=== PATIENT | female | born 1960 | race African-American/Black ===

== ENCOUNTER 2017-05-01 10:37 | Emergency (ER) | payer SELFPAY ==
[~2017-05-01] VITALS: Ht 172.7 cm; Wt 93.0 kg
[2017-05-01 10:52] VITALS: BP 142/83
[2017-05-01] MEDS ORDERED: Albuterol ud Inhalation HHN ONE (11:00)
--- NOTE | 2017-05-01 11:42 | Diagnostic Imaging Report ---
Indication: TRAUMA Technique: 3 views of the left shoulder Comparison: none Findings: No acute fractures. No dislocations. Joint spaces are preserved Impression:No acute process
[2017-05-01 12:19] VITALS: BP 137/80
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
[2017-05-01] MEDS ORDERED: NAPROXEN375 MG ORAL (12:27)
[2017-05-01] MEDS ORDERED: saline NEBULIZ062 (12:28)
[2017-05-01] MEDS ORDERED: TRAMADOL HCL50 MG ORAL (12:28)
[2017-05-01 12:36] VITALS: BP 137/80
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
== END 2017-05-01 12:37 | disposition home or self-care (01) ==
LOC: EMR 11:57
DX: S13.4XXA Sprain of ligaments of cervical spine, initial encounter (principal); S40.012A Contusion of left shoulder, initial encounter; V49.40XA Driver injured in collision with unspecified motor vehicles in traffic accident, initial encounter; Y92.410 Unspecified street and highway as the place of occurrence of the external cause; J45.909 Unspecified asthma, uncomplicated; Z85.42 Personal history of malignant neoplasm of other parts of uterus; Z88.0 Allergy status to penicillin
CPT/HCPCS: 72040; 94640; 94664; 99284

== ENCOUNTER 2017-05-10 14:30 | Emergency (ER) | payer MEDICAID ==
[2017-05-10] VITALS (8 sets, daily range): BP systolic 104–142; BP diastolic 50–69
[~2017-05-10] VITALS: Ht 172.7 cm; Wt 93.4 kg
[~2017-05-10 14:30] MED LIST: NAPROXEN375 MG ORAL; TRAMADOL HCL50 MG ORAL; saline NEBULIZ062
[2017-05-10 15:25] LABS: MEAN CORPUSCULAR VOLUME 61 FL (80-99); MEAN PLATELET VOLUME 7.8 FL (6.5-10.1); PLATELET COUNT 297 K/UL (150-450); RED BLOOD COUNT 3.54 M/UL (4.20-5.40); RED CELL DISTRIBUTION WIDTH 18.1 % (11.6-14.8); WHITE BLOOD COUNT 16.2 K/UL (4.8-10.8)
[2017-05-10 15:38] LABS: ALANINE AMINOTRANSFERASE 7 U/L (3-33); ALBUMIN/GLOBULIN RATIO 0.9 (1.0-2.7); ANION GAP 13 (5-15); ASPARTATE AMINO TRANSFERASE 17 U/L (5-40); CARBON DIOXIDE 25 mEQ/L (20-30); CHLORIDE 100 mEQ/L (98-107); GLOMERULAR FILTRATION RATE > 60 mL/min (>60); HEMOLYSIS 11; LIPASE 21 U/L (< 60); POTASSIUM 4.2 mEQ/L (3.4-4.9); SODIUM 138 mEQ/L (135-145); TOTAL PROTEIN 7.1 g/dL (6.6-8.7)
[2017-05-10 16:22] LABS: ANISOCYTOSIS 3+; BASOPHILS % (MANUAL) 1 % (0-2); EOSINOPHILS % (MANUAL) 1 % (0-3); LYMPHOCYTES % (MANUAL) 26 % (20-45); NEUTROPHILS % (MANUAL) 70 % (45-75); TOTAL CELLS COUNTED 100
[2017-05-10 16:23] LABS: BAND NEUTROPHILS % (MANUAL) 0 % (0-8); HYPOCHROMASIA 3+; MICROCYTES 1+; PLATELET ESTIMATE ADEQUATE; PLATELET MORPHOLOGY NORMAL
--- NOTE | 2017-05-10 17:15 | Emergency Room Report ---
History of Present Illness General Chief Complaint: Vaginal Source: Patient, EMS Present Illness HPI patient is a 57-year-old female who presents with vaginal bleeding. Patient states started yesterday. Patient has a history of vaginal bleeding approximately one year ago associated with uterine fibroids and, per the patient a diagnosis of uterine cancer. Patient states she has used multiple pads overnight and is now feeling somewhat weak. Patient states a year ago she was being treated by Dr. 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 The patient said she was offered a hysterectomy however preferred a different treatment was not available. Therefore the patient states she has received no treatment for her uterine cancer in the last 12 months. Allergies: Coded Allergies: AMOXICILLIN (Verified Allergy, Unknown, 05/01/17) LEVOFLOXACIN (Verified Allergy, Unknown, 05/01/17) Patient History Past Medical History: see triage record Past Surgical History: none Pertinent Family History: none Social History: Denies: alcohol use, drug use, smoking Now: No Nursing Documentation-PMH Past Medical History: No History, Except For Hx Asthma: Yes Hx Cancer: Yes - History of Uterine cancer Hx Gastrointestinal Problems: Yes - UTERINE CANCER Review of Systems Constitutional: Denies: chills, fever, sweats ENT: Denies: ear discharge, ear pain Respiratory: Denies: cough, shortness of breath Cardiovascular: Denies: chest pain, palpitations Gastrointestinal: Reports: abdominal pain, Denies: constipation, diarrhea, nausea, vomiting Genitourinary: Reports: see HPI Musculoskeletal: Denies: back pain, joint pain Skin: Denies: change in color, rash Neurological: Denies: headache, numbness, paresthesia Hematologic/Lymphatic: Reports: anemia, Denies: blood clots Allergic: Denies: hay fever, urticaria Physical Exam Vital Signs Date Time Temp Pulse Resp B/P Pulse Ox O2 Delivery O2 Flow Rate FiO2 05/10/17 14:22 97.0 98 18 104/50 99 Room Air Sp02 EP Interpretation: reviewed, normal General Appearance: no apparent distress, alert, GCS 15, non-toxic Head: normocephalic, atraumatic ENT: hearing grossly normal, normal pharynx, no angioedema, normal voice Neck: full range of motion, supple/symm/no masses Respiratory: chest non-tender, lungs clear, normal breath sounds, speaking full sentences Cardiovascular #1: regular rate, rhythm, no edema Gastrointestinal: normal bowel sounds, non tender, soft, non-distended, no guarding, no rebound Genitourinary: normal inspection, no CVA tenderness, ext genitalia/vag normal, os closed, other - old blood in the vaginal vault, question of a mass in the vagina Musculoskeletal: normal inspection, back normal Neurologic: alert, oriented x3, responsive, motor strength/tone normal, sensory intact, speech normal Psychiatric: judgement/insight normal, memory normal, mood/affect normal, no suicidal/homicidal ideation Skin: normal color, no rash, warm/dry, well hydrated Medical Decision Making Diagnostic Impression: Primary Impression: Vaginal bleeding Additional Impression: Uterine mass ER Course I attempted to contact Dr. Angel [facility]. Number listed on the Internet, as the patient did not know the number, is not working and the patient states she does not want Dr. Angel notified. I did explain that this would make the patient's care he is here however the patient still refusing. At this point the patient is in CAT scan receiving a CT of the abdomen and pelvis to evaluate for potential mass versus metastasis and to establish a clear etiology of the patient's symptoms. Anticipate admitting the patient for transfusion as her hemoglobin is extremely low. However, prior to that I would like to get a more definitive diagnosis. CT shows large uterine mass consistent with cancer and fibroids. Also shows large pericardial effusion. Have informed the patient of this diagnosis. 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 I agree with this assessment. The patient refuses to return to [facility] where she was previously treated. I am therefore calling [facility] patient is now refusing transfer. I have explained to her the risk of down or worsening of her condition and the fact that I will most likely not able to stop the bleeding. However, the patient is adamant about transfer refusal. She is willing to accept transfusion here in the emergency department which as been ordered and will be completed prior to the patient signing out AGAINST MEDICAL ADVICE Laboratory Tests Test 05/10/17 15:05 White Blood Count 16.2 K/UL (4.8-10.8) H Red Blood Count 3.54 M/UL (4.20-5.40) L Hemoglobin 6.7 G/DL (12.0-16.0) *L Hematocrit 21.7 % (37.0-47.0) L Mean Corpuscular Volume 61 FL (80-99) L Mean Corpuscular Hemoglobin 19.0 PG (27.0-31.0) L Mean Corpuscular Hemoglobin Concent 31.0 G/DL (32.0-36.0) L Red Cell Distribution Width 18.1 % (11.6-14.8) H Platelet Count 297 K/UL (150-450) Mean Platelet Volume 7.8 FL (6.5-10.1) Neutrophils (%) (Auto) % (45.0-75.0) Lymphocytes (%) (Auto) % (20.0-45.0) Monocytes (%) (Auto) % (1.0-10.0) Eosinophils (%) (Auto) % (0.0-3.0) Basophils (%) (Auto) % (0.0-2.0) Differential Total Cells Counted 100 Neutrophils % (Manual) 70 % (45-75) Lymphocytes % (Manual) 26 % (20-45) Monocytes % (Manual) 2 % (1-10) Eosinophils % (Manual) 1 % (0-3) Basophils % (Manual) 1 % (0-2) Band Neutrophils 0 % (0-8) Platelet Estimate Adequate Platelet Morphology Normal Hypochromasia 3+ Anisocytosis 3+ Microcytosis 1+ Sodium Level 138 mEQ/L (135-145) Potassium Level 4.2 mEQ/L (3.4-4.9) Chloride Level 100 mEQ/L (98-107) Carbon Dioxide Level 25 mEQ/L (20-30) Anion Gap 13 (5-15) Blood Urea Nitrogen 9 mg/dL (7-23) Creatinine 1.0 mg/dL (0.5-0.9) H Estimate Glomerular Filtration Rate > 60 mL/min (>60) Glucose Level 122 mg/dL (74-106) H Calcium Level 9.0 mg/dL (8.6-10.2) Total Bilirubin 0.4 mg/dL (0.0-1.2) Aspartate Amino Transferase (AST) 17 U/L (5-40) Alanine Aminotransferase (ALT) 7 U/L (3-33) Alkaline Phosphatase 58 U/L (35-104) Total Protein 7.1 g/dL (6.6-8.7) Albumin 3.4 g/dL (3.5-5.2) L Globulin 3.7 g/dL Albumin/Globulin Ratio 0.9 (1.0-2.7) L Lipase 21 U/L (< 60) CT/MRI/US Diagnostic Results CT/MRI/US Diagnostic Results : Impression CT abdomen and pelvis with contrast shows a markedly enlarged intrauterine mass compatible with history of uterine cancer with apparent vaginal extension measuring approximately 9 x 10.5 x 25 cm. Additionally uterine masses suggestive of fibroids. Large pericardial effusion. Normal appendix, fat- containing umbilical hernia. Last Vital Signs Date Time Temp Pulse Resp B/P Pulse Ox O2 Delivery O2 Flow Rate FiO2 05/10/17 15:00 18 104/50 99 Room Air 05/10/17 14:22 97.0 98 Status: improved Disposition: AGAINST MEDICAL ADVICE Condition: Serious ANDREI WARNER May 10, 2017 17:15
[2017-05-10] MEDS ORDERED: Morphine Sulfate 4mg/ml Inj IVP ONE (20:15)
[2017-05-11] MEDS ORDERED: ANTI-ITCH28 G1 TP (01:22)
[2017-05-11 01:35] VITALS: BP 155/55
[2017-05-11] MEDS ORDERED: DuoNeb 0.5-3(2.5)mg/3ml neb HHN ONE (02:15)
[2017-05-11 02:28] LABS: BASOPHILS % (AUTO) 0.9 % (0.0-2.0); EOSINOPHILS % (AUTO) 0.9 % (0.0-3.0); LYMPHOCYTES % (AUTO) 19.4 % (20.0-45.0); MEAN CORPUSCULAR HEMOGLOBIN 20.6 PG (27.0-31.0); MEAN CORPUSCULAR HGB CONC 30.1 G/DL (32.0-36.0); MEAN CORPUSCULAR VOLUME 68 FL (80-99); MEAN PLATELET VOLUME 8.2 FL (6.5-10.1); MONOCYTES % (AUTO) 6.4 % (1.0-10.0); NEUTROPHILS % (AUTO) 72.4 % (45.0-75.0); PLATELET COUNT 285 K/UL (150-450); RED BLOOD COUNT 4.03 M/UL (4.20-5.40); WHITE BLOOD COUNT 13.9 K/UL (4.8-10.8)
[2017-05-11 03:00] VITALS: BP 129/62
[2017-05-11 04:00] VITALS: BP 116/74
--- NOTE | 2017-05-11 10:30 | Diagnostic Imaging Report ---
Clinical Indication: Abdominal pain. History of uterine carcinoma Technique: No oral contrast utilized, per emergency room physician request IV administration nonionic contrast. Venous phase spiral acquisition obtained through the abdomen and pelvis. Multiplanar reconstructions were generated. Total dose length product 827 mGycm. CTDIvol(s) 16 mGy. Dose reduction achieved using automated exposure control Comparison: None Findings: There is a large pericardial effusion, measuring up to 2 cm thick. There is a very large central uterine mass which is mixed in attenuation, mostly hypoattenuating to myometrium. This measures 9.5 cm AP by 10.6 cm transverse by approximately 17 cm craniocaudad. A contiguous lower uterine/cervical mass is also demonstrated. This mostly demonstrates similar attenuation to the central uterine mass but also have some higher attenuation components, and very little surrounding myometrium. This measures approximately 14 cm AP by 10.4 cm transverse by 14 cm craniocaudad. There is also a calcified uterine fibroid which appears to be intramural in the posterior lateral I'm interim on the right, measuring 4.2 cm long axis dimension. There is a subserosal exophytic uterine fibroid in the upper left fundus, measuring 9 cm long axis dimension. There is a 3 cm right ovarian cyst. No definite pelvic or retroperitoneal lymphadenopathy demonstrated. The gallbladder is nondistended. No biliary ductal dilatation. The liver demonstrates one or more subcentimeter low-attenuation lesions which are too small to characterize. The pancreas, spleen, adrenals, left kidney are unremarkable. The right kidney demonstrates an upper pole subcentimeter low-attenuation lesion which is too small to characterize. There is a fat-containing umbilical hernia. The appendix is normal. No evidence of diverticulosis or diverticulitis. No small bowel distention or small bowel wall thickening. No free or loculated intraperitoneal air or fluid is evident. The bones are intact except for mild degenerative lumbar facet disease. Impression: 2 contiguous large uterine masses versus single large bilobed mass, as described, consistent with stated clinical history of uterine malignancy Uterine fibroids also demonstrated 3 cm right ovarian cyst No definite acute process Fat-containing umbilical hernia incidentally noted Subcentimeter low-attenuation liver and right renal lesions, too small to characterize, most likely benign simple cysts. No further followup is necessary. This agrees with the preliminary interpretation provided overnight by Dr. Dolan The CT scanner at [facility] is accredited by the [employer] and the scans are performed using protocols designed to limit radiation exposure to as low as reasonably achievable to attain images of sufficient resolution adequate for diagnostic evaluation.
== END 2017-05-11 04:00 | disposition left against medical advice (07) ==
LOC: EDBD 14:30 → EMR 17:40
DX: N93.9 Abnormal uterine and vaginal bleeding, unspecified (principal); D25.9 Leiomyoma of uterus, unspecified; N83.201 Unspecified ovarian cyst, right side; K42.9 Umbilical hernia without obstruction or gangrene; Z85.42 Personal history of malignant neoplasm of other parts of uterus; Z88.8 Allergy status to other drugs, medicaments and biological substances
CPT/HCPCS: 36415; 74177; 80053; 83690; 85007; 85025; 86850; 86900; 86901; 86920; 94640; 94664; 96360; 96361; 99284; J7040; P9016; Q9967

== ENCOUNTER 2019-03-08 17:03 | Inpatient (IN) | payer MEDICAID ==
[~2019-03-08] VITALS: Ht 172.7 cm; Wt 87.1 kg
[~2019-03-08 17:03] MED LIST changes: +ANTI-ITCH28 G1 TP
--- NOTE | 2019-03-08 17:41 | NUR ---
ED Nurse Note: pt walked in c/o chills and sweating, pt denies having fever. temp 97.7F, pt stated she vomited few time last thursday and was having abdominal pain. pt has hx of uterine cancer. pt appears pale, bs 105. ermd on bedside. will continue to monitor.
[2019-03-08 17:43] VITALS: BP 95/62
--- NOTE | 2019-03-08 18:04 | Emergency Room Report ---
History of Present Illness General Chief Complaint: Abdominal Pain Source: Patient Present Illness HPI Patient is a 58-year-old female presented after increased lower abdominal pain. Patient reports of increased vomiting as well as watery diarrhea since 2 days prior to arrival. Patient reports having nonbilious emesis. She stated she vomited food and was having watery diarrhea which began after eating Amharic food. 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 Patient's prior CT imaging showed some reduction in size of the tumor.Patient reports having hysterectomy at [facility].She denies any hematemesis or bloody stools. She reports having her hemoglobin checked regularly and states her last hemoglobin was approximately 9. She reports having loose stool. She states she had been taking methadone as well as [place] for pain. Allergies: Coded Allergies: LEVOFLOXACIN (Verified Allergy, Unknown, 05/01/17) Patient History Past Medical History: see triage record Now: No Reviewed Nursing Documentation: PMH: Agreed; PSxH: Agreed Nursing Documentation-PMH Past Medical History: No History, Except For Hx Asthma: Yes Hx Cancer: Yes - History of Uterine cancer Hx Gastrointestinal Problems: Yes - UTERINE CANCER Review of Systems All Other Systems: negative except mentioned in HPI Physical Exam Vital Signs Date Time Temp Pulse Resp B/P (MAP) Pulse Ox O2 Delivery O2 Flow Rate FiO2 03/08/19 17:11 97.9 125 15 95 Room Air 03/08/19 17:43 95/62 Sp02 EP Interpretation: reviewed, normal General Appearance: normal inspection, well appearing, no apparent distress, alert, GCS 15, Chronically Ill Head: atraumatic Eyes: bilateral eye conjunctivae pale ENT: normal ENT inspection, hearing grossly normal, normal voice Neck: normal inspection, full range of motion, supple, no bony tend, other - portacath Respiratory: normal inspection, lungs clear, normal breath sounds, no respiratory distress, no retraction, no wheezing Cardiovascular #1: regular rate, rhythm, no edema Gastrointestinal: normal inspection, normal bowel sounds, soft, no guarding, no hernia, tenderness - lower abdomen Genitourinary: no CVA tenderness Musculoskeletal: normal inspection, back normal, normal range of motion Neurologic: normal inspection, alert, oriented x3, responsive, speech normal Psychiatric: normal inspection, judgement/insight normal, mood/affect normal Skin: normal inspection, no rash, pallor Medical Decision Making Diagnostic Impression: Primary Impression: Sepsis Additional Impressions: History of sarcoma Urinary tract infection Opioid dependence ER Course Patient patient presented for abdominal pain. Differential diagnoses included anemia , ischemic bowel, appendicitis, perforated viscus, abdominal aortic aneurysm, inferior myocardial infarction, viral gastroenteritis among others. Because of complexity of patient's case laboratory testing and imaging studies were ordered.Patient was noted to have some anemia at baseline. She reports taking iron pills and is followed by hematology.Patient was noted to have some anemia which is worse than her baseline. Patient was started on IV fluids as well as IV antibiotics. Patient was noted to have a history of prior hysterectomy as well as sarcoma. Patient's recent CT showed evidence of lymph nodes as well as a pelvic mass. Patient had previous embolization procedures done at [facility] CT imaging of abdomen pelvis read by radiology showed bladder compressed and displaced anteriorly; no hydronephrosis multiple clips from pelvic dissection hepatomegaly no ascites abscess or small bowel obstruction. Patient was discussed with Dr. Coronado for inpatient management due to panel physician. Patient reports no recent chemotherapy but is currently scheduled to see a surgical oncologist.Patient was noted to be chronically opioid dependent and previously had been taking methadone as well as [place]. She was given IV morphine for pain. Labs Test 03/08/19 18:20 03/08/19 19:00 White Blood Count 20.5 K/UL (4.8-10.8) Red Blood Count 2.91 M/UL (4.20-5.40) Hemoglobin 7.5 G/DL (12.0-16.0) Hematocrit 22.8 % (37.0-47.0) Mean Corpuscular Volume 78 FL (80-99) Mean Corpuscular Hemoglobin 25.8 PG (27.0-31.0) Mean Corpuscular Hemoglobin Concent 33.0 G/DL (32.0-36.0) Red Cell Distribution Width 16.1 % (11.6-14.8) Platelet Count 297 K/UL (150-450) Mean Platelet Volume 5.1 FL (6.5-10.1) Neutrophils (%) (Auto) % (45.0-75.0) Lymphocytes (%) (Auto) % (20.0-45.0) Monocytes (%) (Auto) % (1.0-10.0) Eosinophils (%) (Auto) % (0.0-3.0) Basophils (%) (Auto) % (0.0-2.0) Differential Total Cells Counted 100 Neutrophils % (Manual) 76 % (45-75) Lymphocytes % (Manual) 4 % (20-45) Monocytes % (Manual) 2 % (1-10) Eosinophils % (Manual) 0 % (0-3) Basophils % (Manual) 2 % (0-2) Band Neutrophils 16 % (0-8) Platelet Estimate Adequate Platelet Morphology Normal Polychromasia 1+ Hypochromasia 1+ Anisocytosis 1+ Microcytosis 1+ Urine Color Brown Urine Appearance Turbid Urine pH 8 (4.5-8.0) Urine Specific [place] 1.010 (1.005-1.035) Urine Protein 4+ (NEGATIVE) Urine Glucose (UA) Negative (NEGATIVE) Urine Ketones 1+ (NEGATIVE) Urine Blood 5+ (NEGATIVE) Urine Nitrite Negative (NEGATIVE) Urine Bilirubin Negative (NEGATIVE) Urine Urobilinogen Normal MG/DL (0.0-1.0) Urine Leukocyte Esterase 3+ (NEGATIVE) Urine RBC Tntc /HPF (0 - 2) Urine WBC Tntc /HPF (0 - 2) Urine Squamous Epithelial Cells Moderate /LPF (NONE/OCC) Urine Bacteria Many /HPF (NONE) Sodium Level 137 MMOL/L (136-145) Potassium Level 3.9 MMOL/L (3.5-5.1) Chloride Level 100 MMOL/L (98-107) Carbon Dioxide Level 28 MMOL/L (21-32) Anion Gap 9 mmol/L (5-15) Blood Urea Nitrogen 20 mg/dL (7-18) Creatinine 1.2 MG/DL (0.55-1.30) Estimat Glomerular Filtration Rate 55.6 mL/min (>60) Glucose Level 111 MG/DL (74-106) Calcium Level 7.9 MG/DL (8.5-10.1) Total Bilirubin 0.5 MG/DL (0.2-1.0) Aspartate Amino Transf (AST/SGOT) 26 U/L (15-37) Alanine Aminotransferase (ALT/SGPT) 19 U/L (12-78) Alkaline Phosphatase 147 U/L (46-116) Total Protein 7.4 G/DL (6.4-8.2) Albumin 2.3 G/DL (3.4-5.0) Globulin 5.1 g/dL Albumin/Globulin Ratio 0.5 (1.0-2.7) Lipase 55 U/L (73-393) Lactic Acid Level 0.70 mmol/L (0.4-2.0) Last Vital Signs Date Time Temp Pulse Resp B/P (MAP) Pulse Ox O2 Delivery O2 Flow Rate FiO2 03/08/19 17:43 97.9 105 15 95/62 95 Room Air Status: unchanged Disposition: ADMITTED INPATIENT Condition: Stable Deni Cruz MD March 08, 2019 18:04
[2019-03-08 18:48] LABS: APPEARANCE,URINE TURBID; BILIRUBIN, URINE NEGATIVE (NEGATIVE); COLOR,URINE BROWN; GLUCOSE, URINE (UA) NEGATIVE (NEGATIVE); HEMATOCRIT 22.8 % (37.0-47.0); HEMOGLOBIN 7.5 G/DL (12.0-16.0); KETONES,URINE 1+ (NEGATIVE); LEUKOCYTE ESTERASE ,URINE 3+ (NEGATIVE); MEAN CORPUSCULAR VOLUME 78 FL (80-99); NITRITE,URINE NEGATIVE (NEGATIVE); PH,URINE 8 (4.5-8.0); PLATELET COUNT 297 K/UL (150-450); PROTEIN,URINE 4+ (NEGATIVE); RED BLOOD COUNT 2.91 M/UL (4.20-5.40); RED CELL DISTRIBUTION WIDTH 16.1 % (11.6-14.8); UROBILINOGEN,URINE NORMAL MG/DL (0.0-1.0); WHITE BLOOD COUNT 20.5 K/UL (4.8-10.8)
[2019-03-08 19:00] LABS: ANION GAP 9 mmol/L (5-15); BLOOD UREA NITROGEN 20 mg/dL (7-18); CALCIUM 7.9 MG/DL (8.5-10.1); CARBON DIOXIDE 28 MMOL/L (21-32); CHLORIDE 100 MMOL/L (98-107); CREATININE 1.2 MG/DL (0.55-1.30); POTASSIUM 3.9 MMOL/L (3.5-5.1); SODIUM 137 MMOL/L (136-145)
[2019-03-08] MEDS ORDERED: cefTRIAXone 1 GM in NS 55 ML IVPB ONE (19:00)
[2019-03-08] MEDS ORDERED: Isovue-300 100ml vial INJ PRN (19:00)
[2019-03-08 19:05] LABS: ALANINE AMINOTRANSFERASE 19 U/L (12-78); ALBUMIN 2.3 G/DL (3.4-5.0); ALBUMIN/GLOBULIN RATIO 0.5 (1.0-2.7); ALKALINE PHOSPHATASE 147 U/L (46-116); ASPARTATE AMINO TRANSFERASE 26 U/L (15-37); BILIRUBIN,TOTAL 0.5 MG/DL (0.2-1.0)
--- NOTE | 2019-03-08 19:12 | NUR ---
HAND-OFF: Report given to Doris linton.
--- NOTE | 2019-03-08 19:25 | NUR ---
ED Nurse Note: RECIEVED REPORT TO RESUME CARE, PT IS CURRENTLY BEING TAKEN TO IMAGING FOR ORDERED CT-SCAN, TP IS ON RNEY AWAKE, ALERT AND ORIENTED X 4, TP AHS PATENT PORTACATH TO RIGHT CHEST WALL WITH FLUIDS INFUSING, FAMILY MEMBER AT BEDSIDE, WILL RESUME CARE ORDERED AND PREPARE FOR HOSPITAL ADMISSION.
[2019-03-08 20:00] VITALS: BP 135/75
[2019-03-08] MEDS ORDERED: Morphine Sulfate 4mg/ml Inj (IV USE ONLY) IVP ONE (20:15)
--- NOTE | 2019-03-08 20:30 | NUR ---
ED Nurse Note: PT RETURNED FROM IMAGING, PT IS AWAKE, ALERT AND ORIENTED X 4, REPLACED ON MONITORING, HAS PATENT PORT A CATH AND ACCESSED, FLUIDS INFUSING, PT TOLERTING WELL, NO S/S OR ADVERSE REACTIONS NOTED FROM IV ANTIBIOTICS, PT C/O HVING PAIN AT 10/10 AND ASKING TO EAT, PT MEDICATED ORDERD, MEDS EFFCTIVE, GIVEN SANDWICH AND JUICE, ATE ALL AND TOLERATED WELL, WILL CONTINNUE TO CLOSELY MONITOR AND SEND TO FLOOR BED WHEN AVAILABLE.
[2019-03-08 21:15] VITALS: BP 126/79
--- NOTE | 2019-03-08 21:27 | NUR ---
NURSE NOTES: Report received via telephone from Doris WHALEN RN. Pending pt arrival to the floor.
--- NOTE | 2019-03-08 21:30 | NUR ---
ED Nurse Note: REPORT CALLED TO FLOOR NURSE, REPORT GIVEN, TP BELONGINGS LIST COMPLETED, FAMILY AT BEDSIDE, PT BEING TAKEN TO FLOOR UNIT VIA GURNEY AND ACLS PROTOCOLS, NAD NOTED DURING PT TRANSPORT TO FLOOR.
--- NOTE | 2019-03-08 21:45 | NUR ---
NURSE NOTES: Pt transferred from ER via gurney and assisted to bed without incidence. Pt is independently ambulatory with steady gait. radiation monitor applied. Belongings list checked with transferring RN and patient at bedside. Pt is awake, alert, and oriented x4. Pt is on room air and breathing is even and unlabored. No acute distress noted. IV site is R upper chest port-a-cath that was accessed in ER today and has NS from ER finishing. Pt provided with orientation to surroundings and hospital policies. Bed placed in lowest position with brake engaged, side rails up x3, and bed alarm on. Call light and side table placed within reach. Sister, Marleny, is at bedside with patient. Will contact MD Coronado for admission orders and continue to monitor.
--- NOTE | 2019-03-08 21:50 | NUR ---
NURSE NOTES: Per patient, sister, Marleny Donohue, is to be notified prior to starting patient on any new medications.
--- NOTE | 2019-03-08 23:00 | NUR ---
NURSE NOTES: Message left requesting call back from MD Coronado for admitting orders for patient. Pending call back for further instructions.
--- NOTE | 2019-03-08 23:06 | NUR ---
NURSE NOTES: MD Coronado return call regarding admission orders. Per MD, discontinue all home medications but okay to continue [place] 10/325, 1 tablet Q6HR PRN pain. Contact MD Arenas regarding continuing psychiatric home medications and contact MD Perez regarding hgb and hct results. All other orders noted and carried out.
--- NOTE | 2019-03-08 23:10 | NUR ---
NURSE NOTES: Message left with answering service for MD Celestine Perez to discuss hgb and hct results for patient. Awaiting call back for further instructions.
--- NOTE | 2019-03-08 23:19 | NUR ---
NURSE NOTES: MD Arenas contacted regarding continuing patient home psychiatric medications and reported dosages for medications. Per MD Arenas, okay to place order for temazepam 15mg PO QHS and Ativan 1mg PO Q4HR PRN for anxiety. MD to see patient in AM to discuss all other medications.
[2019-03-08] MEDS ORDERED: SPIRIVA18 MCG INH (23:22)
[2019-03-08] MEDS ORDERED: TRAMADOL HCL50 MG ORAL (23:22)
[2019-03-08] MEDS ORDERED: FERROUS SULFAT325 MG ORAL (23:22)
[2019-03-08] MEDS ORDERED: GABAPENTIN100 MG ORAL (23:22)
[2019-03-08] MEDS ORDERED: BUPROPION HCL100 MG ORAL (23:22)
[2019-03-08] MEDS ORDERED: LORAZEPAM2 MG ORAL (23:22)
[2019-03-08] MEDS ORDERED: SYMBICORT 16010.2 G1 IH (23:22)
[2019-03-08] MEDS ORDERED: ALPRAZOLAM1 MG ORAL (23:22)
[2019-03-08] MEDS ORDERED: RESTORIL15 MG ORAL (23:22)
[2019-03-08] MEDS ORDERED: NORCO 10-325 T1 EACH ORAL (23:22)
[2019-03-09] VITALS: BP 116/60
[2019-03-09] MEDS ORDERED: LORazepam 1mg tab ORAL PRN (00:30)
[2019-03-09] MEDS: HYDROcodone/Acetamin 10/325 tab ORAL PRN ×2 (00:58→21:24)
[2019-03-09] MEDS ORDERED: Albuterol/Ipratropium 3ml neb HHN SCH (03:00)
[2019-03-09] MEDS ORDERED: Albuterol/Ipratropium 3ml neb HHN PRN (03:00)
--- NOTE | 2019-03-09 03:26 | NUR ---
NURSE NOTES: 2nd message left for MD Celestine Perez to update regarding abnormal labs and to ask if he would like to transfuse patient. Awaiting call back for further instruction.
[2019-03-09 04:00] VITALS: BP 101/71
--- NOTE | 2019-03-09 04:43 | NUR ---
NURSE NOTES: MD Perez return call and provided order for 2u PRBCs. Pt has already had type and cross done. Blood bank called to alert regarding new order. Pending return call from blood bank to pick pack worker blood.
--- NOTE | 2019-03-09 05:21 | NUR ---
NURSE NOTES: Message left for MD Coronado and MD Perez requesting for an okay to use order for R upper chest portacath that was accessed last night upon arrival to ER. Pt states that she is a hard stick and would prefer use of the portacath. Awaiting call back for further instructions.
--- NOTE | 2019-03-09 05:48 | NUR ---
NURSE NOTES: MD Perez return call and provide okay to use order for R upper chest portacath that was accessed in ER upon admission yesterday. Order noted and carried out.
--- NOTE | 2019-03-09 06:18 | NUR ---
NURSE NOTES: Blood ready and picked up from blood bank. 1st unit of PRBC out of 2 units total.
--- NOTE | 2019-03-09 06:45 | NUR ---
NURSE NOTES: 15 minutes after start of transfusion vital signs remain stable. No s/sx of adverse reaction noted. T: 97.7F, P: 88, BP 132/70. Will continue to monitor patient.
--- NOTE | 2019-03-09 06:53 | NUR ---
NURSE NOTES: 1st unit of PRBCs started. Pre-transfusion vitals stable. T: 97.3F, P: 89, BP 140/74. Juan Daniel Jj RN to remain with patient to monitor for 15 minutes after starting transfusion.
--- NOTE | 2019-03-09 07:22 | NUR ---
NURSE NOTES: Received report from Dom Fields. Pt is sitting up in bed having breakfast. No distress noted. Bed is in lowest position, side rails up X2, and call light is within reach. WIll continue to monitor.
--- NOTE | 2019-03-09 07:35 | NUR ---
HAND-OFF: Report given to Nan Bess RN. Pt is resting in bed in stable condition. No acute distress noted. Endorsed plan of care.
[2019-03-09 08:00] VITALS: BP 144/86
[2019-03-09] MEDS ORDERED: Piperacillin/Tazobactam 3.375 GM in NS 110 ML IVPB SCH (09:30)
--- NOTE | 2019-03-09 09:49 | Diagnostic Imaging Report ---
Indication: Trauma pain Technique: CT of the abdomen and pelvis utilizing automated exposure control with intravenous contrast. Venous scanning performed. Axial, sagittal and coronal reformats presented. CT dose: Total DLP 951.27 mGycm; CTDI vol 18.84 mGy Comparison: 05/10/2017 Findings: Dependent atelectasis noted in the lung bases. Probable mild pericardial effusion is partially visualized. Consider dedicated imaging with echocardiogram for better assessment. Partially imaged breast tissue grossly symmetric. Liver is mildly enlarged with the right hepatic lobe measuring approximately 19 cm and coronal caudal length. Hepatic contour is smooth. No focal hepatic mass lesion noted on this single phase exam. Hepatic veins and portal veins appear patent. No biliary ductal dilatation. No CT evident gallstones or pericholecystic inflammatory changes. Spleen is normal in size. No focal splenic lesion identified. Adrenal glands unremarkable. Pancreas grossly unremarkable. Pancreatic enhancement appears uniform. No peripancreatic inflammatory changes. Kidneys enhance symmetrically. There is no urinary tract stone or hydronephrosis bilaterally. No perinephric stranding. Since the prior exam there has been interval surgery with apparent resection of a portion of the previously seen uterine mass. Residual heterogeneously enhancing mass noted in the pelvis, seemingly extending below the pelvic floor, which measures up to 12.4 centers AP by 12 cm transverse and approximately 17 cm craniocaudal. There is mass effect on the bladder which is displaced anteriorly. Additionally the mass is inseparable from portions of the posterior wall the bladder and there is nodular thickening/mass involving the posterior wall of the bladder suggesting bladder invasion. This is new compared to the prior exam. Some air is also noted within the bladder which may be related to recent catheterization or fistulous connection. No fat plane is identified between the posterior portions of the mass in the anterior portions of the rectum and the possibility of extension into the wall of the rectum cannot be excluded. Multiple surgical clips are noted in the pelvis. Multiple calcifications also noted in the pelvis thought to represent phleboliths. There is no evidence of bowel obstruction. No free intraperitoneal air is identified. Appendix is normal. Abdominal aorta is normal in caliber. Small nonspecific bilateral inguinal lymph nodes are noted. There are degenerative changes in the spine. No destructive bone lesion is identified. There is no evidence of acute fracture. IMPRESSION: * Comparison made with exam of 05/10/2017. Interval surgery with resection of portions of a very large uterine mass. Heterogeneous mass in the pelvis mass is still noted measuring approximately 12 x 12 x 17 cm. Uncertain whether this represents residual or recurrent mass and correlation with surgical history is recommended. Extension of the mass into the bladder is noted. This is new compared to the prior exam. Air in the bladder may be related to recent catheterization or fistulous connection. Mass is inseparable from the anterior rectum and rectal wall involvement is not excluded. * No evidence of associated bowel obstruction. * No evidence of hydronephrosis or perinephric stranding. * Mild pericardial effusion partially visualized. Findings as above. This corresponds with the preliminary report. The CT scanner at [facility] is accredited by the [employer] and the scans are performed using protocols designed to limit radiation exposure to as low as reasonably achievable to attain images of sufficient resolution adequate for diagnostic evaluation.
--- NOTE | 2019-03-09 10:43 | GI Initial Consult Note ---
History of Present Illness General Date patient seen: March 09, 2019 Time patient seen: 10:36 Reason for Hospitalization: Abdominal Pain Referring physician: ELSI NORRIS Reason for Consultation: ANEMIA Present Illness HPI Patient is a 58-year-old female presented after increased lower abdominal pain. Patient reports of increased vomiting as well as watery diarrhea since 2 days prior to arrival. Patient reports having nonbilious emesis. She stated she vomited food and was having watery diarrhea which began after eating [place] food. 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 Patient's prior CT imaging showed some reduction in size of the tumor.Patient reports having hysterectomy at [facility].She denies any hematemesis or bloody stools. She reports having her hemoglobin checked regularly and states her last hemoglobin was approximately 9. She reports having loose stool. She states she had been taking methadone as well as [place] for pain. GI consulted for anemia. Patient seen, awake alert and oriented x4 in no apparent distress with no active signs or symptoms of nausea or vomiting. 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 She presents today with a low hemoglobin of 7.5. Patient denied any bloody stools or melena, however stated that she noticed blood in her urine in which she described as bright red. The patient reported a history of colonoscopy approximately 35 years ago, has no history of endoscopy. Home Meds Active Scripts Hydrocortisone 2% Cream (ANTI-ITCH 2% CREAM) Y Cr, 28 GM TP DAILY, #30 GM Prov:Deni Cruz MD 05/11/17 [saline] No Conflict Check, 1 UNIT [id number] Q6HR, #30 PACK Prov:Gigi Bryant MD 05/01/17 Tramadol Hcl* (ULTRAM*) 50 Mg Tablet, 50 MG ORAL Q6H PRN for For Pain, #10 TAB 0 Refills Prov:Gigi Bryant MD 05/01/17 Naproxen* (NAPROSYN*) 375 Mg Tablet, 375 MG ORAL TID PRN for For Pain, #14 TAB 0 Refills Prov:Gigi Bryant MD 05/01/17 Reported Medications Tiotropium [place]* (SPIRIVA*) 18 Mcg Cap.w.dev, 1 PUFF INH DAILY, EA 03/08/19 Budesonide/Formoterol Fumarate (SYMBICORT 160-4.5 MCG INHALER) 10.2 Gm Hfa.aer.ad, 1 PUFF IH, #1 INH 0 Refills 03/08/19 Ferrous Sulfate* (FERROUS SULFATE*) 325 Mg Tablet, 325 MG ORAL DAILY, #30 TAB 0 Refills 03/08/19 Gabapentin* (GABAPENTIN*) 100 Mg Capsule, 100 MG ORAL DAILY, CAP 03/08/19 Hydrocodone Bit/Acetaminophen 10-325* (NORCO 10-325*) 1 Each Tablet, 1 TAB ORAL Q6H PRN for For Pain, #10 TAB 0 Refills PRN PAIN 03/08/19 Tramadol Hcl* (ULTRAM*) 50 Mg Tablet, 50 MG ORAL Q6H PRN for For Pain, #30 TAB 0 Refills 03/08/19 Alprazolam* (XANAX*) 1 Mg Tablet, 10 MG ORAL DAILY, TAB 03/08/19 Bupropion Hcl* (BUPROPION HCL*) 100 Mg Tablet, 10 MG ORAL DAILY, TAB 03/08/19 Temazepam* (RESTORIL*) 15 Mg Capsule, 10 MG ORAL BEDTIME PRN for Insomnia, CAP 03/08/19 Lorazepam* (LORAZEPAM*) 2 Mg Tablet, 10 MG ORAL BID, TAB 03/08/19 Med list reviewed/reconciled: Yes Allergies: Coded Allergies: LEVOFLOXACIN (Verified Allergy, Unknown, 05/01/17) Patient History History Provided By: Patient, Medical Record PMH Narrative Past Medical History: see triage record Now: No Reviewed Nursing Documentation: PMH: Agreed; PSxH: Agreed Nursing Documentation-PMH Past Medical History: No History, Except For Hx Asthma: Yes Hx Cancer: Yes - History of Uterine cancer Hx Gastrointestinal Problems: Yes - UTERINE CANCER Social History: Denies: smoking, alcohol use, drug use, other Review of Systems All Other Systems: negative except mentioned in HPI Physical Exam Vital Signs Date Time Temp Pulse Resp B/P (MAP) Pulse Ox O2 Delivery O2 Flow Rate FiO2 03/08/19 17:11 97.9 125 15 95 Room Air 03/08/19 17:43 95/62 03/09/19 04:35 21 Sp02 EP Interpretation: reviewed, normal Labs Laboratory Tests Test 03/08/19 18:20 03/08/19 19:00 White Blood Count 20.5 K/UL (4.8-10.8) H Red Blood Count 2.91 M/UL (4.20-5.40) L Hemoglobin 7.5 G/DL (12.0-16.0) L Hematocrit 22.8 % (37.0-47.0) L Mean Corpuscular Volume 78 FL (80-99) L Mean Corpuscular Hemoglobin 25.8 PG (27.0-31.0) L Mean Corpuscular Hemoglobin Concent 33.0 G/DL (32.0-36.0) Red Cell Distribution Width 16.1 % (11.6-14.8) H Platelet Count 297 K/UL (150-450) Mean Platelet Volume 5.1 FL (6.5-10.1) L Neutrophils (%) (Auto) % (45.0-75.0) Lymphocytes (%) (Auto) % (20.0-45.0) Monocytes (%) (Auto) % (1.0-10.0) Eosinophils (%) (Auto) % (0.0-3.0) Basophils (%) (Auto) % (0.0-2.0) Differential Total Cells Counted 100 Neutrophils % (Manual) 76 % (45-75) H Lymphocytes % (Manual) 4 % (20-45) L Monocytes % (Manual) 2 % (1-10) Eosinophils % (Manual) 0 % (0-3) Basophils % (Manual) 2 % (0-2) Band Neutrophils 16 % (0-8) H Platelet Estimate Adequate Platelet Morphology Normal Polychromasia 1+ Hypochromasia 1+ Anisocytosis 1+ Microcytosis 1+ Urine Color Brown Urine Appearance Turbid Urine pH 8 (4.5-8.0) Urine Specific [place] 1.010 (1.005-1.035) Urine Protein 4+ (NEGATIVE) H Urine Glucose (UA) Negative (NEGATIVE) Urine Ketones 1+ (NEGATIVE) H Urine Blood 5+ (NEGATIVE) H Urine Nitrite Negative (NEGATIVE) Urine Bilirubin Negative (NEGATIVE) Urine Urobilinogen Normal MG/DL (0.0-1.0) Urine Leukocyte Esterase 3+ (NEGATIVE) H Urine RBC Tntc /HPF (0 - 2) H Urine WBC Tntc /HPF (0 - 2) H Urine Squamous Epithelial Cells Moderate /LPF (NONE/OCC) H Urine Bacteria Many /HPF (NONE) H Sodium Level 137 MMOL/L (136-145) Potassium Level 3.9 MMOL/L (3.5-5.1) Chloride Level 100 MMOL/L (98-107) Carbon Dioxide Level 28 MMOL/L (21-32) Anion Gap 9 mmol/L (5-15) Blood Urea Nitrogen 20 mg/dL (7-18) H Creatinine 1.2 MG/DL (0.55-1.30) Estimat Glomerular Filtration Rate 55.6 mL/min (>60) Glucose Level 111 MG/DL (74-106) H Calcium Level 7.9 MG/DL (8.5-10.1) L Total Bilirubin 0.5 MG/DL (0.2-1.0) Aspartate Amino Transf (AST/SGOT) 26 U/L (15-37) Alanine Aminotransferase (ALT/SGPT) 19 U/L (12-78) Alkaline Phosphatase 147 U/L (46-116) H Total Protein 7.4 G/DL (6.4-8.2) Albumin 2.3 G/DL (3.4-5.0) L Globulin 5.1 g/dL Albumin/Globulin Ratio 0.5 (1.0-2.7) L Lipase 55 U/L (73-393) L Lactic Acid Level 0.70 mmol/L (0.4-2.0) General Appearance: well appearing, no apparent distress, alert Head: normocephalic EENT: PERRL/EOMI, normal ENT inspection Neck: supple Respiratory: normal breath sounds, no respiratory distress Cardiovascular: normal rate Gastrointestinal: normal inspection, non tender, soft, normal bowel sounds, non -distended Rectal: deferred Genitourinary: no CVA tenderness Musculoskeletal: normal inspection, back normal Neurologic: normal inspection, alert, oriented x3, responsive Psychiatric: normal inspection, judgement/insight normal, memory normal Skin: normal inspection, normal color, no rash, warm/dry, palpation normal, well hydrated Lymphatic: normal inspection, no adenopathy Current Medications Current Medications Medications (Trade) Dose Ordered Sig/Nery Route PRN Reason Start Time Stop Time Status Last Admin Dose Admin Acetaminophen (Tylenol) 650 mg Q6H PRN ORAL Mild Pain/Temp > 100.5 03/08/19 23:15 04/07/19 23:14 Acetaminophen/ Hydrocodone Bitart ([place] 10/325) 1 tab Q6HR PRN ORAL Pain Scale (6-10) 03/08/19 23:15 03/15/19 23:14 03/09/19 00:58 Albuterol/ Ipratropium (Albuterol/ Ipratropium) 3 ml Q4HRT PRN HHN Shortness of Breath 03/09/19 03:00 03/14/19 02:59 03/09/19 04:36 Lorazepam (Ativan) 1 mg Q4HR PRN ORAL For Anxiety 03/09/19 00:30 03/16/19 00:29 03/09/19 05:46 Piperacillin Sod/ Tazobactam Sod 3.375 gm/Sodium Chloride 110 ml @ 27.5 mls/hr EVERY 8 HOURS IVPB 03/09/19 09:30 03/14/19 09:29 Temazepam (Restoril) 15 mg HSPRN PRN ORAL Insomnia 03/09/19 00:30 03/16/19 00:29 GI: Plan Problems: (1) Anemia (2) History of sarcoma Plan Abdominal pelvic CT reviewed, large uterine mass, see full report. Recommend that the patient has endoscopy and colonoscopy to evaluate her anemia , however refused that the patient at this time. We will maintain clear liquid diet for lunch and follow-up with patient regarding GI procedures anemia work up OB stool r/o GI bleed monitor H&H, prn transfusions bowel regime ppi fu labs fu MEDICAL TECHNICIAN ASSISTANT Discussed with Dr. Brown. Thank you for this patient referral, we will follow. The patient was seen and examined at bedside and all new and available data was reviewed in the patients chart. I agree with the above findings, impression and plan. (Patient seen earlier today. Signature stamp does not reflect patient encounter time.). - MD Cindy Camacho,[facility] [employer] March 09, 2019 10:43
--- NOTE | 2019-03-09 11:15 | NUR ---
NURSE NOTES: called pharmacy regarding rescheduling of patients antibiotic since the patient is running prbc. She said to let her know when prbc is finished infusing and she will reschedule antibiotics
[2019-03-09 12:00] VITALS: BP 148/80
--- NOTE | 2019-03-09 12:44 | NUR ---
CASE MANAGEMENT:REVIEW 58 YR OLD FEMALE PRESENTED TO ER CC; ABDOMINAL PAIN AND VOMITING SINCE THURSDAY PMH: UTERINE CANCER SI: SEPSIS. ANEMIA. DEHYDRATION. UTI OPIOID DEPENDENCE 97.9 125 15 95/62 99% ON RA WBC+20.5 H/H-7.5/22.8 IS: IV ZOFRAN 500CC NS BOLUS 1L NS BOLUS IV ROCEPHIN URINE CX BLOOD CX CT ABD/PELVIS : TO TELEMETRY IS: TRANSFUSE 2 UNITS PRBC'S INTERQUAL CRITERIA MET
--- NOTE | 2019-03-09 13:14 | Consultation ---
History of Present Illness General Chief Complaint: Abdominal Pain Referring physician: ELSI NORRIS Reason for Consultation: ANEMIA Present Illness Allergies: Coded Allergies: LEVOFLOXACIN (Verified Allergy, Unknown, 05/01/17) Medication History Scheduled Alprazolam* (Xanax*), 10 MG ORAL DAILY, (Reported) Bupropion Hcl* (Bupropion Hcl*), 10 MG ORAL DAILY, (Reported) Ferrous Sulfate* (Ferrous Sulfate*), 325 MG ORAL DAILY, (Reported) Gabapentin* (Gabapentin*), 100 MG ORAL DAILY, (Reported) Hydrocortisone 2% Cream (Anti-Itch 2% Cream), 28 GM TP DAILY Lorazepam* (Lorazepam*), 10 MG ORAL BID, (Reported) Tiotropium Pulteney* (Spiriva*), 1 PUFF INH DAILY, (Reported) [saline], 1 UNIT [id number] Q6HR Scheduled PRN Hydrocodone Bit/Acetaminophen 10-325* (Purcell 10-325*), 1 TAB ORAL Q6H PRN for For Pain, (Reported) Naproxen* (Naprosyn*), 375 MG ORAL TID PRN for For Pain Temazepam* (Restoril*), 10 MG ORAL BEDTIME PRN for Insomnia, (Reported) Tramadol Hcl* (Ultram*), 50 MG ORAL Q6H PRN for For Pain Tramadol Hcl* (Ultram*), 50 MG ORAL Q6H PRN for For Pain, (Reported) Miscellaneous Medications Budesonide/Formoterol Fumarate (Symbicort 160-4.5 Mcg Inhaler), 1 PUFF IH, ( Reported) Patient History Healthcare decision maker N Resuscitation status Full Code Advanced Directive on File Physical Exam Last 24 Hour Vital Signs Date Time Temp Pulse Resp B/P (MAP) Pulse Ox O2 Delivery O2 Flow Rate FiO2 03/09/19 12:00 97.3 87 18 148/80 (102) 97 03/09/19 09:00 Room Air 03/09/19 08:00 95 03/09/19 08:00 97.5 86 20 144/86 (105) 98 03/09/19 04:46 83 18 99 Room Air 21 03/09/19 04:36 83 18 96 Room Air 21 03/09/19 04:35 83 18 Room Air 21 03/09/19 04:00 97.1 89 18 101/71 (81) 97 03/09/19 03:00 88 03/09/19 00:00 97.5 94 18 116/60 (78) 95 03/09/19 00:00 94 03/08/19 23:32 Room Air 03/08/19 21:33 98.4 92 16 126/79 99 Room Air 03/08/19 21:15 98.4 92 16 126/79 99 Room Air 03/08/19 21:11 98.4 03/08/19 20:00 98.4 99 16 135/75 99 Room Air 03/08/19 17:43 97.9 105 15 95/62 95 Room Air 03/08/19 17:43 105 16 Room Air 03/08/19 17:11 97.9 125 15 95 Room Air Intake and Output 03/08/19 03/09/19 19:00 07:00 # Voids 1 Laboratory Tests Test 03/08/19 18:20 03/08/19 19:00 03/09/19 11:05 White Blood Count 20.5 K/UL (4.8-10.8) H Red Blood Count 2.91 M/UL (4.20-5.40) L Hemoglobin 7.5 G/DL (12.0-16.0) L Hematocrit 22.8 % (37.0-47.0) L Mean Corpuscular Volume 78 FL (80-99) L Mean Corpuscular Hemoglobin 25.8 PG (27.0-31.0) L Mean Corpuscular Hemoglobin Concent 33.0 G/DL (32.0-36.0) Red Cell Distribution Width 16.1 % (11.6-14.8) H Platelet Count 297 K/UL (150-450) Mean Platelet Volume 5.1 FL (6.5-10.1) L Neutrophils (%) (Auto) % (45.0-75.0) Lymphocytes (%) (Auto) % (20.0-45.0) Monocytes (%) (Auto) % (1.0-10.0) Eosinophils (%) (Auto) % (0.0-3.0) Basophils (%) (Auto) % (0.0-2.0) Differential Total Cells Counted 100 Neutrophils % (Manual) 76 % (45-75) H Lymphocytes % (Manual) 4 % (20-45) L Monocytes % (Manual) 2 % (1-10) Eosinophils % (Manual) 0 % (0-3) Basophils % (Manual) 2 % (0-2) Band Neutrophils 16 % (0-8) H Platelet Estimate Adequate Platelet Morphology Normal Polychromasia 1+ Hypochromasia 1+ Anisocytosis 1+ Microcytosis 1+ Urine Color Brown Urine Appearance Turbid Urine pH 8 (4.5-8.0) Urine Specific [place] 1.010 (1.005-1.035) Urine Protein 4+ (NEGATIVE) H Urine Glucose (UA) Negative (NEGATIVE) Urine Ketones 1+ (NEGATIVE) H Urine Blood 5+ (NEGATIVE) H Urine Nitrite Negative (NEGATIVE) Urine Bilirubin Negative (NEGATIVE) Urine Urobilinogen Normal MG/DL (0.0-1.0) Urine Leukocyte Esterase 3+ (NEGATIVE) H Urine RBC Tntc /HPF (0 - 2) H Urine WBC Tntc /HPF (0 - 2) H Urine Squamous Epithelial Cells Moderate /LPF (NONE/OCC) H Urine Bacteria Many /HPF (NONE) H Sodium Level 137 MMOL/L (136-145) Potassium Level 3.9 MMOL/L (3.5-5.1) Chloride Level 100 MMOL/L (98-107) Carbon Dioxide Level 28 MMOL/L (21-32) Anion Gap 9 mmol/L (5-15) Blood Urea Nitrogen 20 mg/dL (7-18) H Creatinine 1.2 MG/DL (0.55-1.30) Estimat Glomerular Filtration Rate 55.6 mL/min (>60) Glucose Level 111 MG/DL (74-106) H Calcium Level 7.9 MG/DL (8.5-10.1) L Total Bilirubin 0.5 MG/DL (0.2-1.0) Aspartate Amino Transf (AST/SGOT) 26 U/L (15-37) Alanine Aminotransferase (ALT/SGPT) 19 U/L (12-78) Alkaline Phosphatase 147 U/L (46-116) H Total Protein 7.4 G/DL (6.4-8.2) Albumin 2.3 G/DL (3.4-5.0) L Globulin 5.1 g/dL Albumin/Globulin Ratio 0.5 (1.0-2.7) L Lipase 55 U/L (73-393) L Lactic Acid Level 0.70 mmol/L (0.4-2.0) Stool Occult Blood Pending Microbiology Date/Time Source Procedure Growth Status 03/08/19 18:20 Urine,Clean Catch Urine Culture - Preliminary Gram Negative Silvano Resulted Height (Feet): 5 Height (Inches): 8.00 Weight (Pounds): 192 Medications Current Medications Medications (Trade) Dose Ordered Sig/Nery Route PRN Reason Start Time Stop Time Status Last Admin Dose Admin Acetaminophen (Tylenol) 650 mg Q6H PRN ORAL Mild Pain/Temp > 100.5 03/08/19 23:15 04/07/19 23:14 Acetaminophen/ Hydrocodone Bitart (Purcell 10/325) 1 tab Q6HR PRN ORAL Pain Scale (6-10) 03/08/19 23:15 03/15/19 23:14 03/09/19 00:58 Albuterol/ Ipratropium (Albuterol/ Ipratropium) 3 ml Q4HRT PRN HHN Shortness of Breath 03/09/19 03:00 03/14/19 02:59 03/09/19 04:36 Lorazepam (Ativan) 1 mg Q4HR PRN ORAL For Anxiety 03/09/19 00:30 03/16/19 00:29 03/09/19 05:46 Piperacillin Sod/ Tazobactam Sod 3.375 gm/Sodium Chloride 110 ml @ 27.5 mls/hr EVERY 8 HOURS IVPB 03/09/19 09:30 03/14/19 09:29 Temazepam (Restoril) 15 mg HSPRN PRN ORAL Insomnia 03/09/19 00:30 03/16/19 00:29 Assessment/Plan Assessment/Plan: Hematology Consult Date patient seen: March 09, 2019 Reason for Hospitalization: Abdominal Pain Referring physician: ELSI NORRIS Reason for Consultation: ANEMIA, UTERINE SARCOMA HPI 58-year-old female presented after increased lower abdominal pain. Patient reports of increased vomiting as well as watery diarrhea since 2 days prior to arrival. Patient reports having nonbilious emesis. She stated she vomited food and was having watery diarrhea which began after eating [place] food. 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 Patient's prior CT imaging showed some reduction in size of the tumor.Patient reports having hysterectomy at [facility].She denies any hematemesis or bloody stools. She reports having her hemoglobin checked regularly and states her last hemoglobin was approximately 9. She reports having loose stool. She states she had been taking methadone as well as Purcell for pain. GI consulted for anemia. Patient seen, awake alert and oriented x4 in no apparent distress with no active signs or symptoms of nausea or vomiting. 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 She presents today with a low hemoglobin of 7.5. Patient denied any bloody stools or melena, however stated that she noticed blood in her urine in which she described as bright red. The patient reported a history of colonoscopy approximately 35 years ago, has no history of endoscopy. I have ordered blood this and, gi has seen her as well Home Meds Active Scripts Hydrocortisone 2% Cream (ANTI-ITCH 2% CREAM) Y Cr, 28 GM TP DAILY, #30 GM Prov:Deni Cruz MD 05/11/17 [saline] No Conflict Check, 1 UNIT [id number] Q6HR, #30 PACK Prov:Gigi Bryant MD 05/01/17 Tramadol Hcl* (ULTRAM*) 50 Mg Tablet, 50 MG ORAL Q6H PRN for For Pain, #10 TAB 0 Refills Prov:Gigi Bryant MD 05/01/17 Naproxen* (NAPROSYN*) 375 Mg Tablet, 375 MG ORAL TID PRN for For Pain, #14 TAB 0 Refills Prov:Gigi Bryant MD 05/01/17 Reported Medications Tiotropium Pulteney* (SPIRIVA*) 18 Mcg Cap.w.dev, 1 PUFF INH DAILY, EA 03/08/19 Budesonide/Formoterol Fumarate (SYMBICORT 160-4.5 MCG INHALER) 10.2 Gm Hfa.aer.ad, 1 PUFF IH, #1 INH 0 Refills 03/08/19 Ferrous Sulfate* (FERROUS SULFATE*) 325 Mg Tablet, 325 MG ORAL DAILY, #30 TAB 0 Refills 03/08/19 Gabapentin* (GABAPENTIN*) 100 Mg Capsule, 100 MG ORAL DAILY, CAP 03/08/19 Hydrocodone Bit/Acetaminophen 10-325* (NORCO 10-325*) 1 Each Tablet, 1 TAB ORAL Q6H PRN for For Pain, #10 TAB 0 Refills PRN PAIN 03/08/19 Tramadol Hcl* (ULTRAM*) 50 Mg Tablet, 50 MG ORAL Q6H PRN for For Pain, #30 TAB 0 Refills 03/08/19 Alprazolam* (XANAX*) 1 Mg Tablet, 10 MG ORAL DAILY, TAB 03/08/19 Bupropion Hcl* (BUPROPION HCL*) 100 Mg Tablet, 10 MG ORAL DAILY, TAB 03/08/19 Temazepam* (RESTORIL*) 15 Mg Capsule, 10 MG ORAL BEDTIME PRN for Insomnia, CAP 03/08/19 Lorazepam* (LORAZEPAM*) 2 Mg Tablet, 10 MG ORAL BID, TAB 03/08/19 Med list reviewed/reconciled: Yes Allergies: Coded Allergies: LEVOFLOXACIN (Verified Allergy, Unknown, 05/01/17) History Provided By: Patient, Medical Record PMH Narrative Past Medical History: see triage record Now: No Reviewed Nursing Documentation: PMH: Agreed; PSxH: Agreed Past Medical History: No History, Except For Hx Asthma: Yes Hx Cancer: Yes - History of Uterine cancer Hx Gastrointestinal Problems: Yes - UTERINE CANCER Social History: Denies: smoking, alcohol use, drug use, other Review of systems: negative except mentioned in HPI PE vital Signs Date Time Temp Pulse Resp B/P (MAP) Pulse Ox O2 Delivery O2 Flow Rate FiO2 03/08/19 17:11 97.9 125 15 95 Room Air 03/08/19 17:43 95/62 03/09/19 04:35 21 Sp02 EP Interpretation: reviewed, normal Labs Laboratory Tests Test 03/08/19 18:20 03/08/19 19:00 White Blood Count 20.5 K/UL (4.8-10.8) H Red Blood Count 2.91 M/UL (4.20-5.40) L Hemoglobin 7.5 G/DL (12.0-16.0) L Hematocrit 22.8 % (37.0-47.0) L Mean Corpuscular Volume 78 FL (80-99) L Mean Corpuscular Hemoglobin 25.8 PG (27.0-31.0) L Mean Corpuscular Hemoglobin Concent 33.0 G/DL (32.0-36.0) Red Cell Distribution Width 16.1 % (11.6-14.8) H Platelet Count 297 K/UL (150-450) Mean Platelet Volume 5.1 FL (6.5-10.1) L Neutrophils (%) (Auto) % (45.0-75.0) Lymphocytes (%) (Auto) % (20.0-45.0) Monocytes (%) (Auto) % (1.0-10.0) Eosinophils (%) (Auto) % (0.0-3.0) Basophils (%) (Auto) % (0.0-2.0) Differential Total Cells Counted 100 Neutrophils % (Manual) 76 % (45-75) H Lymphocytes % (Manual) 4 % (20-45) L Monocytes % (Manual) 2 % (1-10) Eosinophils % (Manual) 0 % (0-3) Basophils % (Manual) 2 % (0-2) Band Neutrophils 16 % (0-8) H Platelet Estimate Adequate Platelet Morphology Normal Polychromasia 1+ Hypochromasia 1+ Anisocytosis 1+ Microcytosis 1+ Urine Color Brown Urine Appearance Turbid Urine pH 8 (4.5-8.0) Urine Specific [place] 1.010 (1.005-1.035) Urine Protein 4+ (NEGATIVE) H Urine Glucose (UA) Negative (NEGATIVE) Urine Ketones 1+ (NEGATIVE) H Urine Blood 5+ (NEGATIVE) H Urine Nitrite Negative (NEGATIVE) Urine Bilirubin Negative (NEGATIVE) Urine Urobilinogen Normal MG/DL (0.0-1.0) Urine Leukocyte Esterase 3+ (NEGATIVE) H Urine RBC Tntc /HPF (0 - 2) H Urine WBC Tntc /HPF (0 - 2) H Urine Squamous Epithelial Cells Moderate /LPF (NONE/OCC) H Urine Bacteria Many /HPF (NONE) H Sodium Level 137 MMOL/L (136-145) Potassium Level 3.9 MMOL/L (3.5-5.1) Chloride Level 100 MMOL/L (98-107) Carbon Dioxide Level 28 MMOL/L (21-32) Anion Gap 9 mmol/L (5-15) Blood Urea Nitrogen 20 mg/dL (7-18) H Creatinine 1.2 MG/DL (0.55-1.30) Estimat Glomerular Filtration Rate 55.6 mL/min (>60) Glucose Level 111 MG/DL (74-106) H Calcium Level 7.9 MG/DL (8.5-10.1) L Total Bilirubin 0.5 MG/DL (0.2-1.0) Aspartate Amino Transf (AST/SGOT) 26 U/L (15-37) Alanine Aminotransferase (ALT/SGPT) 19 U/L (12-78) Alkaline Phosphatase 147 U/L (46-116) H Total Protein 7.4 G/DL (6.4-8.2) Albumin 2.3 G/DL (3.4-5.0) L Globulin 5.1 g/dL Albumin/Globulin Ratio 0.5 (1.0-2.7) L Lipase 55 U/L (73-393) L Lactic Acid Level 0.70 mmol/L (0.4-2.0) General: well appearing, no apparent distress Head: normocephalic EENT: PERRL/EOMI, normal ENT inspection Neck: supple Respiratory: normal breath sounds, no respiratory distress Cardiovascular: normal rate Gastrointestinal: normal inspection, non tender, soft Rectal: deferred Genitourinary: no CVA tenderness Musculoskeletal: normal inspection, back normal Neurologic: normal inspection, alert, oriented x3, responsive Skin: normal inspection, normal color, no rash Lymphatic: normal inspection, no adenopathy Current Medications Current Medications Medications (Trade) Dose Ordered Sig/Nery Route PRN Reason Start Time Stop Time Status Last Admin Dose Admin Acetaminophen (Tylenol) 650 mg Q6H PRN ORAL Mild Pain/Temp > 100.5 03/08/19 23:15 04/07/19 23:14 Acetaminophen/ Hydrocodone Bitart (Purcell 10/325) 1 tab Q6HR PRN ORAL Pain Scale (6-10) 03/08/19 23:15 03/15/19 23:14 03/09/19 00:58 Albuterol/ Ipratropium (Albuterol/ Ipratropium) 3 ml Q4HRT PRN HHN Shortness of Breath 03/09/19 03:00 03/14/19 02:59 03/09/19 04:36 Lorazepam (Ativan) 1 mg Q4HR PRN ORAL For Anxiety 03/09/19 00:30 03/16/19 00:29 03/09/19 05:46 Piperacillin Sod/ Tazobactam Sod 3.375 gm/Sodium Chloride 110 ml @ 27.5 mls/hr EVERY 8 HOURS IVPB 03/09/19 09:30 03/14/19 09:29 Temazepam (Restoril) 15 mg HSPRN PRN ORAL Insomnia 03/09/19 00:30 03/16/19 00:29 Assessment and RecsL # Anemia of chronic disease (or of iron deficiency) due to underlying chronic medical issues, multifactorial --> Anemia workup has been ordered, rule out gi bleed --> No evidence of hemolysis is noted, peripheral smear has been reviewed. --> Hgb goal >7. Transfuse prn. --> Epogen or iron at this time is not particularly indicated --> Medications have been reviewed --> evaluate with Gi team prn --> transfuse if hgb is < 7 (will trend CBC daily) --> low threshold for gi evaluation in case has occult + --> bone marrow biopsy is not indicated given the other more likely causes # Uterine Sarcoma histroy s/p surgery eval, CT imaging shows Heterogeneous mass in the pelvis mass is still noted measuring approximately 12 x 12 x 17 cm. Uncertain whether this represents residual or recurrent mass and correlation with surgical history is recommended. Extension of the mass into the bladder is noted --> s/p embolization treatment as well as hysterectomy. --> CT scan shows large uterine mass --> needs further surgery eval and potential outpatient chemo # Anemia due to underlying vaginal bleeding --> eunice consider premarin cream --> obtain gynecology eval # Leukocytosis is likely 2/2 reactive process --> trend cbc as needed --> id eval on prn basis # GERD continue ppi The timing of this note does not necessarily reflect the time of the patient was seen. Greatly appreciate consultation! Celestine Perez MD March 09, 2019 13:14
[2019-03-09] MEDS ORDERED: Tubing Blood Filter IV ONE (13:28)
[2019-03-09] MEDS ORDERED: NS 500ML ONE (13:28)
--- NOTE | 2019-03-09 14:26 | Cardiology Report ---
APPROVED REPORT EKG Measurement Heart [id number] Sinus rhythm with occasional premature ventricular complexes Otherwise normal ECG
[2019-03-09] MEDS ORDERED: LORazepam 1mg tab ORAL SCH (14:40)
[2019-03-09] MEDS ORDERED: ALPRAZolam 0.5mg tab ORAL PRN (14:45)
[2019-03-09 16:00] VITALS: BP 149/78
--- NOTE | 2019-03-09 16:13 | Diagnostic Imaging Report ---
Indication: Asthma Technique: XRAY Chest 1v Comparison: None Findings: Cardiac silhouette appears enlarged and slightly globular. Possibility of a pericardial effusion should be considered. Right chest wall Mediport is noted with catheter tip in the region of the superior vena cava. There is no definite focal airspace consolidation. No pleural effusion or pneumothorax. No acute osseous abnormality. IMPRESSION: Enlarged cardiac silhouette with globular contour suggesting pericardial effusion. Consider further evaluation of the echocardiogram. Mediport in place. No focal airspace consolidation, pleural effusion or pneumothorax.
[2019-03-09] MEDS: LORazepam 1mg tab ORAL SCH (18:00)
[2019-03-09] MEDS: Piperacillin/Tazobactam 3.375 GM in NS 110 ML IVPB SCH (18:23)
--- NOTE | 2019-03-09 19:50 | NUR ---
HAND-OFF: Report given to Dom Fields. Plan of care endorsed.
--- NOTE | 2019-03-09 19:50 | NUR ---
NURSE NOTES: Report received from Nan Bess RN. Pt is resting in bed in stable condition. Pt is awake, alert, and oriented x4. Pt is on room air and breathing is even and unlabored. No acute distress noted. IV site is R upper chest port-a-cath and site and dressing are asymptomatic, patent, and intact. Bed placed in lowest position with brake engaged and side rails up x2. Call light and side table placed within reach. Sister, Marleny, is at bedside. Will continue to monitor.
[2019-03-09 20:00] VITALS: BP 127/64
--- NOTE | 2019-03-09 20:15 | Consultation ---
DATE OF CONSULTATION: 03/09/2019 INFECTIOUS DISEASE CONSULTATION CONSULTING PHYSICIAN: Carlos Whiteside M.D. PRIMARY ATTENDING PHYSICIAN: Alber Coronado M.D. REASON FOR CONSULT: Sepsis and UTI. HISTORY OF PRESENT ILLNESS: This is a 58-year-old female admitted yesterday from home complaining of lower abdominal pain. The patient problems started 3 to 4 days ago with vomiting after eating in restaurant. The next day, the patient developed shaking chills. Has dysuria and lower abdominal pain. She has history of uterine sarcoma and had a surgery done in December of 2018, but she still needs to have more surgeries. At the time of admission, had leukocytosis of 20,500 and tachycardia of 101. PAST MEDICAL HISTORY: Significant for asthma, anemia, uterine sarcoma, status post embolization, and partial hysterectomy. MEDICATIONS: Zosyn, albuterol, ipratropium, temazepam, lorazepam, [place], and Tylenol. Got a dose of ceftriaxone in the ER. ALLERGIES: Allergic to Levaquin. SOCIAL HISTORY: Single. Has 3 kids. Denies alcohol, drug abuse, or smoking. REVIEW OF SYSTEMS: He has no nausea or vomiting today. No fever. No chills. Has shortness of breath attributed to asthma. Has change in urine color and dysuria. PHYSICAL EXAMINATION: VITAL SIGNS: Temperature 97.5, pulse 86, and blood pressure 124/86. GENERAL APPEARANCE: No acute distress. Seems to be well developed. HEAD AND NECK: Pale conjunctiva. No oral lesion. HEART: S1 and S2 regular. LUNGS: Clear. ABDOMEN: Soft. Suprapubic tenderness on deep palpation. EXTREMITY: Have some edema in the right lower extremity. LABORATORY DATA: WBC 20.5, hemoglobin 7.5, hematocrit 22.8, and platelets 297,000. Sodium 137, potassium 3.9, chloride 100, bicarbonate 28, BUN 20, and creatinine 1.2. Alkaline phosphatase is 147. Albumin 2.3. Urine culture is growing gram-negative rods. UA showed wbc too numerous to count, rbc's too numerous to count, leukocyte esterase 3+, and nitrite negative. CT scan of the abdomen and pelvis showed pelvic mass, a 12 x 12 x 17 cm. Extension of mass to the bladder. Air in the bladder may be related to recent catheterization or fistula. Mass is inseparable from anterior wall of rectum. IMPRESSION: Sepsis with leukocytosis and tachycardia. The patient seems to have complicated urinary tract infection. Uterine sarcoma seems to have done some ambulization & needs debulking surgery. Needs more surgery to remove the mass. Has severe anemia, has asthma by history, and has history of DVT. RECOMMENDATION: 1. We will continue Zosyn. 2. We will order chest x-ray. 3. We will order venous duplex of lower extremities. At the end of my exam, I thank Dr. Coronado for involving me in the care of this patient. Carlos Whiteside M.D. DR: BIANCA JOB#: [id number] CC: ANABELLA
--- NOTE | 2019-03-09 20:15 | Pulmonology Progress Note ---
Assessment/Plan Assessment/Plan Pulmonary Consultation HPI Patient is a 58-year-old female with history of Uterine Sarcoma, she presented after increased lower abdominal pain and vaginal bleeding. Patient reports of increased vomiting as well as watery diarrhea since 2 days prior to arrival. Patient reports having nonbilious emesis. 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 Patient's prior CT imaging showed some reduction in size of the tumor.Patient reports having hysterectomy at [facility].She denies any hematemesis or bloody stools. She reports having her hemoglobin checked regularly and states her last hemoglobin was approximately 9. She reports having loose stool. She states she had been taking methadone as well as Gilchrist for pain. Allergies: LEVOFLOXACIN Past Medical History: Uterine Sarcoma, Asthma, Allergic Rhinitis All Other Systems: negative except mentioned in HPI Physical Exam Vital Signs Noted Date Time Temp Pulse Resp B/P (MAP) Pulse Ox O2 Delivery O2 Flow Rate FiO2 03/08/19 17:11 97.9 125 15 95 Room Air 03/08/19 17:43 95/62 General Appearance: normal inspection, well appearing, no apparent distress, alert, GCS 15, Chronically Ill Head: atraumatic Eyes: bilateral eye conjunctivae pale ENT: normal ENT inspection, hearing grossly normal, normal voice Neck: normal inspection, full range of motion, supple, no bony tend, other - portacath Respiratory: normal inspection, lungs clear, normal breath sounds, no respiratory distress, no retraction, no wheezing Cardiovascular: HS1, HS2, regular rate, rhythm, no edema Gastrointestinal: normal inspection, normal bowel sounds, soft, no guarding, no hernia, tenderness - lower abdomen Genitourinary: no CVA tenderness Musculoskeletal: normal inspection, back normal, normal range of motion Neurologic: normal inspection, alert, oriented x3, responsive, speech normal Psychiatric: normal inspection, judgement/insight normal, mood/affect normal Skin: normal inspection, no rash, pallor Diagnostic Impression: Possible Sepsis Uterine sarcoma Urinary tract infection Opioid dependence Asthma Plan IV antibiotics per ID HHN Nebulized Budesonide O2 PRN RO PE Transfuse PRN. PPX - SCD Monitor Labs Consider Echocardiogram CT imaging of abdomen pelvis read by radiology showed bladder compressed and displaced anteriorly; no hydronephrosis multiple clips from pelvic dissection hepatomegaly no ascites abscess or small bowel obstruction. CXR: Clear LF, Cardiomegaly. LE Dupplex: Negative for DVT Labs Test 03/08/19 18:20 03/08/19 19:00 White Blood Count 20.5 K/UL (4.8-10.8) Red Blood Count 2.91 M/UL (4.20-5.40) Hemoglobin 7.5 G/DL (12.0-16.0) Hematocrit 22.8 % (37.0-47.0) Mean Corpuscular Volume 78 FL (80-99) Mean Corpuscular Hemoglobin 25.8 PG (27.0-31.0) Mean Corpuscular Hemoglobin Concent 33.0 G/DL (32.0-36.0) Red Cell Distribution Width 16.1 % (11.6-14.8) Platelet Count 297 K/UL (150-450) Mean Platelet Volume 5.1 FL (6.5-10.1) Neutrophils (%) (Auto) % (45.0-75.0) Lymphocytes (%) (Auto) % (20.0-45.0) Monocytes (%) (Auto) % (1.0-10.0) Eosinophils (%) (Auto) % (0.0-3.0) Basophils (%) (Auto) % (0.0-2.0) Differential Total Cells Counted 100 Neutrophils % (Manual) 76 % (45-75) Lymphocytes % (Manual) 4 % (20-45) Monocytes % (Manual) 2 % (1-10) Eosinophils % (Manual) 0 % (0-3) Basophils % (Manual) 2 % (0-2) Band Neutrophils 16 % (0-8) Platelet Estimate Adequate Platelet Morphology Normal Polychromasia 1+ Hypochromasia 1+ Anisocytosis 1+ Microcytosis 1+ Urine Color Brown Urine Appearance Turbid Urine pH 8 (4.5-8.0) Urine Specific Warren 1.010 (1.005-1.035) Urine Protein 4+ (NEGATIVE) Urine Glucose (UA) Negative (NEGATIVE) Urine Ketones 1+ (NEGATIVE) Urine Blood 5+ (NEGATIVE) Urine Nitrite Negative (NEGATIVE) Urine Bilirubin Negative (NEGATIVE) Urine Urobilinogen Normal MG/DL (0.0-1.0) Urine Leukocyte Esterase 3+ (NEGATIVE) Urine RBC Tntc /HPF (0 - 2) Urine WBC Tntc /HPF (0 - 2) Urine Squamous Epithelial Cells Moderate /LPF (NONE/OCC) Urine Bacteria Many /HPF (NONE) Sodium Level 137 MMOL/L (136-145) Potassium Level 3.9 MMOL/L (3.5-5.1) Chloride Level 100 MMOL/L (98-107) Carbon Dioxide Level 28 MMOL/L (21-32) Anion Gap 9 mmol/L (5-15) Blood Urea Nitrogen 20 mg/dL (7-18) Creatinine 1.2 MG/DL (0.55-1.30) Estimat Glomerular Filtration Rate 55.6 mL/min (>60) Glucose Level 111 MG/DL (74-106) Calcium Level 7.9 MG/DL (8.5-10.1) Total Bilirubin 0.5 MG/DL (0.2-1.0) Aspartate Amino Transf (AST/SGOT) 26 U/L (15-37) Alanine Aminotransferase (ALT/SGPT) 19 U/L (12-78) Alkaline Phosphatase 147 U/L (46-116) Total Protein 7.4 G/DL (6.4-8.2) Albumin 2.3 G/DL (3.4-5.0) Globulin 5.1 g/dL Albumin/Globulin Ratio 0.5 (1.0-2.7) Lipase 55 U/L (73-393) Lactic Acid Level 0.70 mmol/L (0.4-2.0) Subjective ROS Limited/Unobtainable: No Respiratory: Reports: shortness of breath Allergies: Coded Allergies: LEVOFLOXACIN (Verified Allergy, Unknown, 05/01/17) Objective Last 24 Hour Vital Signs Date Time Temp Pulse Resp B/P (MAP) Pulse Ox O2 Delivery O2 Flow Rate FiO2 03/09/19 16:00 97.4 88 20 149/78 (101) 99 03/09/19 16:00 88 03/09/19 12:00 85 03/09/19 12:00 97.3 87 18 148/80 (102) 97 03/09/19 09:00 Room Air 03/09/19 08:00 95 03/09/19 08:00 97.5 86 20 144/86 (105) 98 03/09/19 04:46 83 18 99 Room Air 21 03/09/19 04:36 83 18 96 Room Air 21 03/09/19 04:35 83 18 Room Air 21 03/09/19 04:00 97.1 89 18 101/71 (81) 97 03/09/19 03:00 88 03/09/19 00:00 97.5 94 18 116/60 (78) 95 03/09/19 00:00 94 03/08/19 23:32 Room Air 03/08/19 21:33 98.4 92 16 126/79 99 Room Air 03/08/19 21:15 98.4 92 16 126/79 99 Room Air 03/08/19 21:11 98.4 Intake and Output 03/08/19 03/09/19 19:00 07:00 # Voids 1 Microbiology Date/Time Source Procedure Growth Status 03/08/19 18:20 Urine,Clean Catch Urine Culture - Preliminary Gram Negative Silvano Resulted Laboratory Tests 03/09/19 11:05: Stool Occult Blood [Pending] Current Medications Medications (Trade) Dose Ordered Sig/Nery Route PRN Reason Start Time Stop Time Status Last Admin Dose Admin Acetaminophen (Tylenol) 650 mg Q6H PRN ORAL Mild Pain/Temp > 100.5 03/08/19 23:15 04/07/19 23:14 Acetaminophen/ Hydrocodone Bitart (Gilchrist 10/325) 1 tab Q6HR PRN ORAL Pain Scale (6-10) 03/08/19 23:15 03/15/19 23:14 03/09/19 00:58 Albuterol/ Ipratropium (Albuterol/ Ipratropium) 3 ml Q4HRT PRN HHN Shortness of Breath 03/09/19 03:00 03/14/19 02:59 03/09/19 04:36 Alprazolam (Xanax) 1 mg DAILYPRN PRN ORAL For Anxiety 03/09/19 14:45 03/16/19 14:44 Budesonide (Pulmicort) 500 mg EVERY 12 HOURS HHN 03/09/19 21:00 04/08/19 20:59 Bupropion HCl (Wellbutrin) 100 mg DAILY ORAL 03/10/19 09:00 04/09/19 08:59 Lorazepam (Ativan) 2 mg BID ORAL 03/09/19 18:00 03/16/19 17:59 Piperacillin Sod/ Tazobactam Sod 3.375 gm/Sodium Chloride 110 ml @ 27.5 mls/hr Q8H IVPB 03/09/19 16:00 03/16/19 15:59 03/09/19 18:23 Temazepam (Restoril) 15 mg HSPRN PRN ORAL Insomnia 03/09/19 00:30 03/16/19 00:29 Gigi Oliveira MD March 09, 2019 20:15
--- NOTE | 2019-03-09 20:15 | NUR ---
NURSE NOTES: Patient education provided re: new medication, Pulmicort, ordered by MD Oliveira. Pt agreeable to starting medication and verbalized understanding.
[2019-03-09] MEDS ORDERED: Budesonide HHN 0.25mg/2ml ud HHN SCH (21:00)
--- NOTE | 2019-03-09 22:32 | NUR ---
NURSE NOTES: Message left for MD Coronado regarding patient request for pain medication stronger than rosalino. Awaiting call back for further instructions.
--- NOTE | 2019-03-09 22:40 | NUR ---
NURSE NOTES: RT states that pulmicort dosage is off and wants us to clarify order with MD Oliveira. Message left for MD Oliveira to clarify dosage. Awaiting call back for further instructions.
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
--- NOTE | 2019-03-09 23:14 | NUR ---
NURSE NOTES: MD Coronado return call and provide order for Morphine 2mg IV Q4HR PRN pain. Per MD, for anything stronger call MD Barlow or MD Brown.
--- NOTE | 2019-03-09 23:15 | NUR ---
NURSE NOTES: Pt c/o diarrhea and vaginal irritation and is concerned that it may be a side effect of the zosyn that pt was started on today. MD Lamin Whiteside notified and orders for us to hold Zosyn until he comes to see her in AM. Pt does have 2 small red lesions on the R outer labia. Pt kept clean and dry and calazime cream applied to protect area from irritation.
[2019-03-09] MEDS ORDERED: Morphine Sulfate 2mg/ml Inj(IV/IM USE ONLY) IVP PRN (23:30)
[2019-03-10] VITALS: BP 120/69
[2019-03-10] MEDS: Piperacillin/Tazobactam 3.375 GM in NS 110 ML IVPB SCH ×2
--- NOTE | 2019-03-10 00:51 | NUR ---
NURSE NOTES: Spoke with pipeline support, Loren, and pipeline pharmacist, Domenica, who agreed to placing Budesonide on hold until we are able to get clarification from MD Oliveira regarding dosage.
[2019-03-10 04:00] VITALS: BP 132/64
[2019-03-10] MEDS: HYDROcodone/Acetamin 10/325 tab ORAL PRN ×2 (05:11→20:30)
--- NOTE | 2019-03-10 05:30 | NUR ---
NURSE NOTES: Blood collected per orders and dropped off in lab.
--- NOTE | 2019-03-10 05:34 | NUR ---
NURSE NOTES: Pt has been instructed regarding c.diff collection. Hat provided to patient and patient instructed to notify staff for collection. Pt agreeable and verbalized understanding.
[2019-03-10 05:46] LABS: BASOPHILS % (AUTO) 0.5 % (0.0-2.0); EOSINOPHILS % (AUTO) 2.2 % (0.0-3.0); HEMATOCRIT 26.1 % (37.0-47.0); HEMOGLOBIN 8.6 G/DL (12.0-16.0); LYMPHOCYTES % (AUTO) 15.3 % (20.0-45.0); MEAN CORPUSCULAR VOLUME 81 FL (80-99); MONOCYTES % (AUTO) 6.9 % (1.0-10.0); NEUTROPHILS % (AUTO) 75.1 % (45.0-75.0); PLATELET COUNT 272 K/UL (150-450); RED BLOOD COUNT 3.23 M/UL (4.20-5.40); RED CELL DISTRIBUTION WIDTH 16.5 % (11.6-14.8); WHITE BLOOD COUNT 12.6 K/UL (4.8-10.8)
[2019-03-10 06:14] LABS: ALANINE AMINOTRANSFERASE 30 U/L (12-78); ALBUMIN/GLOBULIN RATIO 0.4 (1.0-2.7); ALKALINE PHOSPHATASE 173 U/L (46-116); ANION GAP 6 mmol/L (5-15); ASPARTATE AMINO TRANSFERASE 32 U/L (15-37); BILIRUBIN,TOTAL 0.3 MG/DL (0.2-1.0); BLOOD UREA NITROGEN 13 mg/dL (7-18); CALCIUM 7.8 MG/DL (8.5-10.1); CARBON DIOXIDE 28 MMOL/L (21-32); CHLORIDE 106 MMOL/L (98-107); CREATININE 0.9 MG/DL (0.55-1.30); FERRITIN 107 NG/ML (8-388); POTASSIUM 3.8 MMOL/L (3.5-5.1); SODIUM 140 MMOL/L (136-145)
[2019-03-10 07:04] LABS: % IRON SATURATION 17 % (15-50); IRON 22 ug/dL (50-175); TOTAL IRON BINDING CAPACITY 127 ug/dL (250-450)
[2019-03-10] MEDS ORDERED: Morphine Sulfate 2mg/ml Inj(IV/IM USE ONLY) IVP PRN (07:30)
--- NOTE | 2019-03-10 07:30 | NUR ---
NURSE NOTES: Received report from GIANNA Fields. Pt sitting up in bed. Bed is in lowest position, side rails up X2, and call light is within reach. Will continue to monitor.
--- NOTE | 2019-03-10 07:39 | NUR ---
HAND-OFF: Report given to Nan Bess RN. Pt is resting in bed in stable condition. No acute distress noted. Endorsed plan of care.
[2019-03-10 08:00] VITALS: BP 144/86
--- NOTE | 2019-03-10 08:05 | NUR ---
NURSE NOTES: Per Dr. Whiteside, Please hold Zosyn until he sees the patient.
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
[2019-03-10] MEDS: LORazepam 1mg tab ORAL SCH ×2 (09:00→18:12)
--- NOTE | 2019-03-10 09:05 | NUR ---
NURSE NOTES: Dr. Oliveira clarified order for Budesonide. Orders noted and carried out.
--- NOTE | 2019-03-10 09:14 | NUR ---
NURSE NOTES: Attempted to lower the patients bed again Pt states "I want bed high, please leave me alone so I can rest.". Explained the dangers of not having the bed in the lowest position. Pt verbalized understanding. Will continue to monitor.
--- NOTE | 2019-03-10 09:16 | NUR ---
NURSE NOTES: Patient does not want to take her medication at this time. She states that she needs to rest. I explained to patient that I would non administer medications. Pt agrees
--- NOTE | 2019-03-10 09:18 | GI Progress Note ---
Assessment/Plan Problems: (1) Anemia ICD Codes: D64.9 - Anemia, unspecified SNOMED: 987237312 (2) History of sarcoma ICD Codes: Z85.831 - Personal history of malignant neoplasm of soft tissue SNOMED: 463623324 Status: stable Status Narrative Discussed with Dr. Brown Assessment/Plan Abdominal pelvic CT reviewed, large uterine mass, see full report. OB stool collected, pending final read will consider EGD/colonoscopy if OB stool is positive anemia work up monitor H&H, prn transfusions bowel regime ppi fu labs fu PRESIDENTIAL SUPPORT SPECIALIST The patient was seen and examined at bedside and all new and available data was reviewed in the patients chart. I agree with the above findings, impression and plan. (Patient seen earlier today. Signature stamp does not reflect patient encounter time.). - Jaiden Brown MD Subjective Gastrointestinal/Abdominal: Reports: no symptoms Objective Last 24 Hour Vital Signs Date Time Temp Pulse Resp B/P (MAP) Pulse Ox O2 Delivery O2 Flow Rate FiO2 03/10/19 09:09 87 18 Room Air 21 03/10/19 04:00 98.8 88 18 132/64 (86) 97 03/10/19 04:00 97 03/10/19 00:00 97.7 91 18 120/69 (86) 98 03/10/19 00:00 89 03/09/19 21:00 Room Air 03/09/19 20:00 88 03/09/19 20:00 97.9 93 18 127/64 (85) 97 03/09/19 19:34 90 18 Room Air 21 03/09/19 16:00 97.4 88 20 149/78 (101) 99 03/09/19 16:00 88 03/09/19 12:00 85 03/09/19 12:00 97.3 87 18 148/80 (102) 97 Intake and Output 03/09/19 03/10/19 18:59 06:59 Intake Total 1360 ml 110.0 ml Balance 1360 ml 110.0 ml Intake Oral 360 ml IV Total 110.0 ml Blood Product 1000 ml # Voids 2 2 # Bowel Movements 1 Laboratory Tests Test 03/09/19 11:05 03/10/19 05:00 Stool Occult Blood Pending White Blood Count 12.6 K/UL (4.8-10.8) H Red Blood Count 3.23 M/UL (4.20-5.40) L Hemoglobin 8.6 G/DL (12.0-16.0) L Hematocrit 26.1 % (37.0-47.0) L Mean Corpuscular Volume 81 FL (80-99) Mean Corpuscular Hemoglobin 26.7 PG (27.0-31.0) L Mean Corpuscular Hemoglobin Concent 33.1 G/DL (32.0-36.0) Red Cell Distribution Width 16.5 % (11.6-14.8) H Platelet Count 272 K/UL (150-450) Mean Platelet Volume 6.7 FL (6.5-10.1) Neutrophils (%) (Auto) 75.1 % (45.0-75.0) H Lymphocytes (%) (Auto) 15.3 % (20.0-45.0) L Monocytes (%) (Auto) 6.9 % (1.0-10.0) Eosinophils (%) (Auto) 2.2 % (0.0-3.0) Basophils (%) (Auto) 0.5 % (0.0-2.0) Reticulocyte Count Pending Prothrombin Time 11.0 SEC (9.30-11.50) Prothromb Time International Ratio 1.0 (0.9-1.1) Activated Partial Thromboplast Time 36 SEC (23-33) H Sodium Level 140 MMOL/L (136-145) Potassium Level 3.8 MMOL/L (3.5-5.1) Chloride Level 106 MMOL/L (98-107) Carbon Dioxide Level 28 MMOL/L (21-32) Anion Gap 6 mmol/L (5-15) Blood Urea Nitrogen 13 mg/dL (7-18) Creatinine 0.9 MG/DL (0.55-1.30) Estimat Glomerular Filtration Rate > 60 mL/min (>60) Glucose Level 92 MG/DL (74-106) Calcium Level 7.8 MG/DL (8.5-10.1) L Iron Level 22 ug/dL (50-175) L Total Iron Binding Capacity 127 ug/dL (250-450) L Percent Iron Saturation 17 % (15-50) Unsaturated Iron Binding 105 ug/dL (112-346) L Ferritin 107 NG/ML (8-388) Total Bilirubin 0.3 MG/DL (0.2-1.0) Aspartate Amino Transf (AST/SGOT) 32 U/L (15-37) Alanine Aminotransferase (ALT/SGPT) 30 U/L (12-78) Alkaline Phosphatase 173 U/L (46-116) H Total Protein 6.9 G/DL (6.4-8.2) Albumin 2.0 G/DL (3.4-5.0) L Globulin 4.9 g/dL Albumin/Globulin Ratio 0.4 (1.0-2.7) L Carcinoembryonic Antigen Pending Vitamin B12 Level > 2000 PG/ML (193-986) H Folate 6.6 NG/ML (8.6-58.9) L Thyroid Stimulating Hormone (TSH) 2.976 uiU/mL (0.358-3.740) Free Thyroxine 1.02 NG/DL (0.76-1.46) Height (Feet): 5 Height (Inches): 8.00 Weight (Pounds): 192 General Appearance: WD/WN, no apparent distress, alert Cardiovascular: normal rate Respiratory/Chest: normal breath sounds, no respiratory distress Abdominal Exam: normal bowel sounds, non tender, soft Extremities: normal range of motion, non-tender Jigar White NP March 10, 2019 09:18
--- NOTE | 2019-03-10 10:03 | NUR ---
NURSE NOTES: Informed Pharmacy of med not being administered at this time
--- NOTE | 2019-03-10 10:14 | NUR ---
NURSE NOTES: Augustine from [facility] med came to speak to the patient regarding the VQ scan. Pt is currently denying the procedure. She stated that she wanted to talk to Dr. Oliveira and her family regarding this procedure. She stated that she has not seen Dr. Oliveira. I explained to her that the Dr. Oliveira came to see her yesterday. She said "oh yeah". Will continue to monitor. Let Dr. Oliveira aware of patient refusing
--- NOTE | 2019-03-10 11:02 | General Progress Note ---
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 Uncertain whether this represents residual or recurrent mass and correlation with surgical history is recommended. Extension of the mass into the bladder is noted --> s/p embolization treatment as well as hysterectomy. --> CT scan shows large uterine mass --> needs further surgery eval and potential outpatient chemo --> patient at this time refusing procedures # Anemia of chronic disease due to underlying chronic medical issues, multifactorial --> Anemia workup has been reviewed, and shows no evidence of iron deficiency --> No evidence of hemolysis is noted, peripheral smear has been reviewed. --> Hgb goal >7. Transfuse prn. --> Epogen or iron at this time is not particularly indicated --> Medications have been reviewed --> evaluate with Gi team prn --> transfuse if hgb is < 7 (will trend CBC daily) --> low threshold for gi evaluation in case has occult + --> bone marrow biopsy is not indicated given the other more likely causes # Anemia due to underlying vaginal bleeding --> eunice consider premarin cream --> obtain gynecology eval # Leukocytosis is likely 2/2 reactive process --> trend cbc as needed --> id eval on prn basis # GERD continue ppi The timing of this note does not necessarily reflect the time of the patient was seen. Greatly appreciate consultation! Subjective Constitutional: Denies: no symptoms, chills, diaphoresis, fever, malaise, weakness, other HEENT: Denies: no symptoms, eye pain, blurred vision, tearing, double vision, ear pain, ear discharge, nose pain, nose congestion, throat pain, throat swelling, mouth pain, mouth swelling, other Cardiovascular: Denies: no symptoms, chest pain, edema, irregular heart rate, lightheadedness, palpitations, syncope, other Respiratory: Denies: no symptoms, cough, orthopnea, shortness of breath, SOB with excertion, SOB at rest, sputum, stridor, wheezing, other Gastrointestinal/Abdominal: Denies: no symptoms, abdomen distended, abdominal pain, black stools, tarry stools, blood in stool, constipated, diarrhea, difficulty swallowing, nausea, poor appetite, poor fluid intake, rectal bleeding , vomiting, other Genitourinary: Denies: no symptoms, burning, discharge, frequency, flank pain, hematuria, incontinence, pain, urgency, other Neurologic/Psychiatric: Denies: no symptoms, anxiety, depressed, emotional problems, headache, numbness, paresthesia, pre-existing deficit, seizure, tingling, tremors, weakness, other Endocrine: Denies: no symptoms, excessive sweating, flushing, intolerance to cold, intolerance to heat, increased hunger, increased thirst, increased urine, unexplained weight gain, unexplained weight loss, other Hematologic/Lymphatic: Denies: no symptoms, anemia, easy bleeding, easy bruising, other Allergies: Coded Allergies: LEVOFLOXACIN (Verified Allergy, Unknown, 05/01/17) Subjective 03/10: no events, no fevers noted, hgb remains stable, occult pending Objective Last 24 Hour Vital Signs Date Time Temp Pulse Resp B/P (MAP) Pulse Ox O2 Delivery O2 Flow Rate FiO2 03/10/19 09:09 87 18 Room Air 21 03/10/19 09:00 Room Air 03/10/19 08:00 97.6 91 20 144/86 (105) 97 03/10/19 08:00 91 03/10/19 04:00 98.8 88 18 132/64 (86) 97 03/10/19 04:00 97 03/10/19 00:00 97.7 91 18 120/69 (86) 98 03/10/19 00:00 89 03/09/19 21:00 Room Air 03/09/19 20:00 88 03/09/19 20:00 97.9 93 18 127/64 (85) 97 03/09/19 19:34 90 18 Room Air 21 03/09/19 16:00 97.4 88 20 149/78 (101) 99 03/09/19 16:00 88 03/09/19 12:00 85 03/09/19 12:00 97.3 87 18 148/80 (102) 97 Intake and Output 03/09/19 03/10/19 19:00 07:00 Intake Total 1360 ml 110.0 ml Balance 1360 ml 110.0 ml Intake Oral 360 ml IV Total 110.0 ml Blood Product 1000 ml # Voids 2 2 # Bowel Movements 1 Laboratory Tests 03/09/19 11:05: Stool Occult Blood Negative 03/10/19 05:00: White Blood Count 12.6H, Red Blood Count 3.23L, Hemoglobin 8.6L, Hematocrit 26.1L, Mean Corpuscular Volume 81, Mean Corpuscular Hemoglobin 26.7L, Mean Corpuscular Hemoglobin Concent 33.1, Red Cell Distribution Width 16.5H, Platelet Count 272, Mean Platelet Volume 6.7, Neutrophils (%) (Auto) 75.1H, Lymphocytes (%) (Auto) 15.3L, Monocytes (%) (Auto) 6.9, Eosinophils (%) (Auto) 2.2, Basophils (%) (Auto) 0.5, Reticulocyte Count 0.3L, Prothrombin Time 11.0, Prothromb Time International Ratio 1.0, Activated Partial Thromboplast Time 36H , Sodium Level 140, Potassium Level 3.8, Chloride Level 106, Carbon Dioxide Level 28, Anion Gap 6, Blood Urea Nitrogen 13, Creatinine 0.9, Estimat Glomerular Filtration Rate > 60, Glucose Level 92, Calcium Level 7.8L, Iron Level 22L, Total Iron Binding Capacity 127L, Percent Iron Saturation 17, Unsaturated Iron Binding 105L, Ferritin 107, Total Bilirubin 0.3, Aspartate Amino Transf (AST/SGOT) 32, Alanine Aminotransferase (ALT/SGPT) 30, Alkaline Phosphatase 173H, Total Protein 6.9, Albumin 2.0L, Globulin 4.9, Albumin/ Globulin Ratio 0.4L, Carcinoembryonic Antigen [Pending], Vitamin B12 Level > 2000H, Folate 6.6L, Thyroid Stimulating Hormone (TSH) 2.976, Free Thyroxine 1.02 Height (Feet): 5 Height (Inches): 8.00 Weight (Pounds): 192 Objective General: well appearing, no apparent distress Head: normocephalic EENT: PERRL/EOMI, normal ENT inspection Neck: supple Respiratory: normal breath sounds, no respiratory distress Cardiovascular: normal rate Gastrointestinal: normal inspection, non tender, soft Rectal: deferred Genitourinary: no CVA tenderness Musculoskeletal: normal inspection, back normal Neurologic: normal inspection, alert, oriented x3, responsive Skin: normal inspection, normal color, no rash Lymphatic: normal inspection, no adenopathy Celestine Perez MD March 10, 2019 11:02
--- NOTE | 2019-03-10 11:47 | NUR ---
CASE MANAGEMENT:REVIEW 03/10/19 SI: SEPSIS. ANEMIA. DEHYDRATION. UTI OPIOID DEPENDENCE 97.6 91 20 144/86 97% ON RA WBC+12.6 H/H-8.6/26.1 IS: IV ZOSYN Q8HRS FOLATE PO QD PULMICORT HHN Q12 WELLBUTRIN PO QD ATIVAN PO BID DUONEB HHN Q4HRS PRN NORCO PO Q6HRS PRN : TELEMETRY DCP: FROM HOME
[2019-03-10 12:00] VITALS: BP 147/78
--- NOTE | 2019-03-10 12:14 | Infectious Diseases Prog Note ---
Assessment/Plan Assessment/Plan IMPRESSION: Sepsis with leukocytosis and tachycardia. complicated urinary tract infection. Uterine sarcoma severe anemia, asthma by history, DVT history Diarrhea RECOMMENDATION: 1. change Zosyn to Rocephin 2. Will f/u Urine culture, C. difficile test Subjective ROS Limited/Unobtainable: No Constitutional: Reports: fatigue Respiratory: Reports: no symptoms Gastrointestinal/Abdominal: Reports: diarrhea, other - requested to stop Zosyn last night Genitourinary: Reports: other - dark urine Psychiatric: Reports: depression Allergies: Coded Allergies: LEVOFLOXACIN (Verified Allergy, Unknown, 05/01/17) Objective Vital Signs Last 24 Hour Vital Signs Date Time Temp Pulse Resp B/P (MAP) Pulse Ox O2 Delivery O2 Flow Rate FiO2 03/10/19 09:09 87 18 Room Air 21 03/10/19 09:00 Room Air 03/10/19 08:00 97.6 91 20 144/86 (105) 97 03/10/19 08:00 91 03/10/19 04:00 98.8 88 18 132/64 (86) 97 03/10/19 04:00 97 03/10/19 00:00 97.7 91 18 120/69 (86) 98 03/10/19 00:00 89 03/09/19 21:00 Room Air 03/09/19 20:00 88 03/09/19 20:00 97.9 93 18 127/64 (85) 97 03/09/19 19:34 90 18 Room Air 21 03/09/19 16:00 97.4 88 20 149/78 (101) 99 03/09/19 16:00 88 Height (Feet): 5 Height (Inches): 8.00 Weight (Pounds): 192 General Appearance: no acute distress HEENT: mucous membranes moist Respiratory/Chest: lungs clear Cardiovascular: normal rate, other - Portacath Abdomen: other - soft, suprapubic tenderness Extremities: no edema Neurologic/Psychiatric: alert, oriented x 3, responsive Microbiology Date/Time Source Procedure Growth Status 03/08/19 19:00 Blood Blood Culture - Preliminary NO GROWTH AFTER 24 HOURS Resulted 03/08/19 18:45 Blood Blood Culture - Preliminary NO GROWTH AFTER 24 HOURS Resulted 03/08/19 18:20 Urine,Clean Catch Urine Culture - Preliminary Gram Negative Silvano Resulted Laboratory Tests Test 03/10/19 05:00 White Blood Count 12.6 K/UL (4.8-10.8) H Red Blood Count 3.23 M/UL (4.20-5.40) L Hemoglobin 8.6 G/DL (12.0-16.0) L Hematocrit 26.1 % (37.0-47.0) L Mean Corpuscular Volume 81 FL (80-99) Mean Corpuscular Hemoglobin 26.7 PG (27.0-31.0) L Mean Corpuscular Hemoglobin Concent 33.1 G/DL (32.0-36.0) Red Cell Distribution Width 16.5 % (11.6-14.8) H Platelet Count 272 K/UL (150-450) Mean Platelet Volume 6.7 FL (6.5-10.1) Neutrophils (%) (Auto) 75.1 % (45.0-75.0) H Lymphocytes (%) (Auto) 15.3 % (20.0-45.0) L Monocytes (%) (Auto) 6.9 % (1.0-10.0) Eosinophils (%) (Auto) 2.2 % (0.0-3.0) Basophils (%) (Auto) 0.5 % (0.0-2.0) Reticulocyte Count 0.3 % (0.5-2.0) L Prothrombin Time 11.0 SEC (9.30-11.50) Prothromb Time International Ratio 1.0 (0.9-1.1) Activated Partial Thromboplast Time 36 SEC (23-33) H Sodium Level 140 MMOL/L (136-145) Potassium Level 3.8 MMOL/L (3.5-5.1) Chloride Level 106 MMOL/L (98-107) Carbon Dioxide Level 28 MMOL/L (21-32) Anion Gap 6 mmol/L (5-15) Blood Urea Nitrogen 13 mg/dL (7-18) Creatinine 0.9 MG/DL (0.55-1.30) Estimat Glomerular Filtration Rate > 60 mL/min (>60) Glucose Level 92 MG/DL (74-106) Calcium Level 7.8 MG/DL (8.5-10.1) L Iron Level 22 ug/dL (50-175) L Total Iron Binding Capacity 127 ug/dL (250-450) L Percent Iron Saturation 17 % (15-50) Unsaturated Iron Binding 105 ug/dL (112-346) L Ferritin 107 NG/ML (8-388) Total Bilirubin 0.3 MG/DL (0.2-1.0) Aspartate Amino Transf (AST/SGOT) 32 U/L (15-37) Alanine Aminotransferase (ALT/SGPT) 30 U/L (12-78) Alkaline Phosphatase 173 U/L (46-116) H Total Protein 6.9 G/DL (6.4-8.2) Albumin 2.0 G/DL (3.4-5.0) L Globulin 4.9 g/dL Albumin/Globulin Ratio 0.4 (1.0-2.7) L Carcinoembryonic Antigen Pending Vitamin B12 Level > 2000 PG/ML (193-986) H Folate 6.6 NG/ML (8.6-58.9) L Thyroid Stimulating Hormone (TSH) 2.976 uiU/mL (0.358-3.740) Free Thyroxine 1.02 NG/DL (0.76-1.46) Current Medications Medications (Trade) Dose Ordered Sig/Nery Route PRN Reason Start Time Stop Time Status Last Admin Dose Admin Acetaminophen (Tylenol) 650 mg Q6H PRN ORAL Mild Pain/Temp > 100.5 03/08/19 23:15 04/07/19 23:14 Acetaminophen/ Hydrocodone Bitart ([place] 10/325) 1 tab Q6HR PRN ORAL Pain Scale (6-10) 03/08/19 23:15 03/15/19 23:14 03/10/19 05:11 Albuterol/ Ipratropium (Albuterol/ Ipratropium) 3 ml Q4HRT PRN HHN Shortness of Breath 03/09/19 03:00 03/14/19 02:59 03/09/19 04:36 Alprazolam (Xanax) 1 mg DAILYPRN PRN ORAL For Anxiety 03/09/19 14:45 03/16/19 14:44 Budesonide (Pulmicort) 0.5 mg EVERY 12 HOURS HHN 03/10/19 21:00 04/08/19 20:59 Bupropion HCl (Wellbutrin) 100 mg DAILY ORAL 03/10/19 09:00 04/09/19 08:59 Chlorhexidine Gluconate (Phyllis-Hex 2%) 1 applic DAILY@2000 TOPIC 03/10/19 20:00 04/09/19 19:59 Folic Acid (Folate) 1 mg DAILY ORAL 03/11/19 09:00 04/10/19 08:59 Lorazepam (Ativan) 2 mg BID ORAL 03/09/19 18:00 03/16/19 17:59 Morphine Sulfate (Morphine Sulfate) 2 mg Q4H PRN IVP Severe Pain (Pain Scale 7-10) 03/10/19 07:30 03/16/19 23:29 Piperacillin Sod/ Tazobactam Sod 3.375 gm/Sodium Chloride 110 ml @ 27.5 mls/hr Q8H IVPB 03/09/19 16:00 03/16/19 15:59 03/09/19 18:23 Temazepam (Restoril) 15 mg HSPRN PRN ORAL Insomnia 03/09/19 00:30 03/16/19 00:29 03/09/19 21:23 Carlos Whiteside MD March 10, 2019 12:14
[2019-03-10] MEDS: cefTRIAXone 1 GM in D5W 55 ML IVPB SCH (12:55)
--- NOTE | 2019-03-10 14:17 | Diagnostic Imaging Report ---
APPROVED REPORT CPT Code: 24966 Present Symptoms Comments: Lower abdominal pain BILATERAL: Imaging reveals a patent deep venous system bilaterally. There is no evidence of thrombus within the common femoral, superficial femoral, popliteal or tibial segments. The greater saphenous veins are within normal limits. Doppler indicates normal spontaneous flow within these segments.
--- NOTE | 2019-03-10 15:52 | Consultation ---
History of Present Illness General Date patient seen: March 10, 2019 Present Illness Allergies: Coded Allergies: LEVOFLOXACIN (Verified Allergy, Unknown, 05/01/17) Medication History Scheduled Alprazolam* (Xanax*), 10 MG ORAL DAILY, (Reported) Bupropion Hcl* (Bupropion Hcl*), 10 MG ORAL DAILY, (Reported) Ferrous Sulfate* (Ferrous Sulfate*), 325 MG ORAL DAILY, (Reported) Gabapentin* (Gabapentin*), 100 MG ORAL DAILY, (Reported) Hydrocortisone 2% Cream (Anti-Itch 2% Cream), 28 GM TP DAILY Lorazepam* (Lorazepam*), 10 MG ORAL BID, (Reported) Tiotropium [place]* (Spiriva*), 1 PUFF INH DAILY, (Reported) [saline], 1 UNIT [id number] Q6HR Scheduled PRN Hydrocodone Bit/Acetaminophen 10-325* ([place] 10-325*), 1 TAB ORAL Q6H PRN for For Pain, (Reported) Naproxen* (Naprosyn*), 375 MG ORAL TID PRN for For Pain Temazepam* (Restoril*), 10 MG ORAL BEDTIME PRN for Insomnia, (Reported) Tramadol Hcl* (Ultram*), 50 MG ORAL Q6H PRN for For Pain Tramadol Hcl* (Ultram*), 50 MG ORAL Q6H PRN for For Pain, (Reported) Miscellaneous Medications Budesonide/Formoterol Fumarate (Symbicort 160-4.5 Mcg Inhaler), 1 PUFF IH, ( Reported) Patient History Healthcare decision maker N Resuscitation status Full Code Advanced Directive on File Physical Exam Last 24 Hour Vital Signs Date Time Temp Pulse Resp B/P (MAP) Pulse Ox O2 Delivery O2 Flow Rate FiO2 03/10/19 12:00 97.3 83 18 147/78 (101) 96 03/10/19 09:09 87 18 Room Air 21 03/10/19 09:00 Room Air 03/10/19 08:00 97.6 91 20 144/86 (105) 97 03/10/19 08:00 91 03/10/19 04:00 98.8 88 18 132/64 (86) 97 03/10/19 04:00 97 03/10/19 00:00 97.7 91 18 120/69 (86) 98 03/10/19 00:00 89 03/09/19 21:00 Room Air 03/09/19 20:00 88 03/09/19 20:00 97.9 93 18 127/64 (85) 97 03/09/19 19:34 90 18 Room Air 21 03/09/19 16:00 97.4 88 20 149/78 (101) 99 03/09/19 16:00 88 Intake and Output 03/09/19 03/10/19 18:59 06:59 Intake Total 1360 ml 110.0 ml Balance 1360 ml 110.0 ml Intake Oral 360 ml IV Total 110.0 ml Blood Product 1000 ml # Voids 2 2 # Bowel Movements 1 Laboratory Tests Test 03/10/19 05:00 White Blood Count 12.6 K/UL (4.8-10.8) H Red Blood Count 3.23 M/UL (4.20-5.40) L Hemoglobin 8.6 G/DL (12.0-16.0) L Hematocrit 26.1 % (37.0-47.0) L Mean Corpuscular Volume 81 FL (80-99) Mean Corpuscular Hemoglobin 26.7 PG (27.0-31.0) L Mean Corpuscular Hemoglobin Concent 33.1 G/DL (32.0-36.0) Red Cell Distribution Width 16.5 % (11.6-14.8) H Platelet Count 272 K/UL (150-450) Mean Platelet Volume 6.7 FL (6.5-10.1) Neutrophils (%) (Auto) 75.1 % (45.0-75.0) H Lymphocytes (%) (Auto) 15.3 % (20.0-45.0) L Monocytes (%) (Auto) 6.9 % (1.0-10.0) Eosinophils (%) (Auto) 2.2 % (0.0-3.0) Basophils (%) (Auto) 0.5 % (0.0-2.0) Reticulocyte Count 0.3 % (0.5-2.0) L Prothrombin Time 11.0 SEC (9.30-11.50) Prothromb Time International Ratio 1.0 (0.9-1.1) Activated Partial Thromboplast Time 36 SEC (23-33) H Sodium Level 140 MMOL/L (136-145) Potassium Level 3.8 MMOL/L (3.5-5.1) Chloride Level 106 MMOL/L (98-107) Carbon Dioxide Level 28 MMOL/L (21-32) Anion Gap 6 mmol/L (5-15) Blood Urea Nitrogen 13 mg/dL (7-18) Creatinine 0.9 MG/DL (0.55-1.30) Estimat Glomerular Filtration Rate > 60 mL/min (>60) Glucose Level 92 MG/DL (74-106) Calcium Level 7.8 MG/DL (8.5-10.1) L Iron Level 22 ug/dL (50-175) L Total Iron Binding Capacity 127 ug/dL (250-450) L Percent Iron Saturation 17 % (15-50) Unsaturated Iron Binding 105 ug/dL (112-346) L Ferritin 107 NG/ML (8-388) Total Bilirubin 0.3 MG/DL (0.2-1.0) Aspartate Amino Transf (AST/SGOT) 32 U/L (15-37) Alanine Aminotransferase (ALT/SGPT) 30 U/L (12-78) Alkaline Phosphatase 173 U/L (46-116) H Total Protein 6.9 G/DL (6.4-8.2) Albumin 2.0 G/DL (3.4-5.0) L Globulin 4.9 g/dL Albumin/Globulin Ratio 0.4 (1.0-2.7) L Carcinoembryonic Antigen Pending Vitamin B12 Level > 2000 PG/ML (193-986) H Folate 6.6 NG/ML (8.6-58.9) L Thyroid Stimulating Hormone (TSH) 2.976 uiU/mL (0.358-3.740) Free Thyroxine 1.02 NG/DL (0.76-1.46) Height (Feet): 5 Height (Inches): 8.00 Weight (Pounds): 192 Medications Current Medications Medications (Trade) Dose Ordered Sig/Nery Route PRN Reason Start Time Stop Time Status Last Admin Dose Admin Acetaminophen (Tylenol) 650 mg Q6H PRN ORAL Mild Pain/Temp > 100.5 03/08/19 23:15 04/07/19 23:14 Acetaminophen/ Hydrocodone Bitart ([place] 10/325) 1 tab Q6HR PRN ORAL Pain Scale (6-10) 03/08/19 23:15 03/15/19 23:14 03/10/19 05:11 Albuterol/ Ipratropium (Albuterol/ Ipratropium) 3 ml Q4HRT PRN HHN Shortness of Breath 03/09/19 03:00 03/14/19 02:59 03/09/19 04:36 Alprazolam (Xanax) 1 mg DAILYPRN PRN ORAL For Anxiety 03/09/19 14:45 03/16/19 14:44 Budesonide (Pulmicort) 0.5 mg EVERY 12 HOURS HHN 03/10/19 21:00 04/08/19 20:59 Bupropion HCl (Wellbutrin) 100 mg DAILY ORAL 03/10/19 09:00 04/09/19 08:59 Ceftriaxone Sodium 1 gm/ Dextrose 55 ml @ 110 mls/hr DAILY IVPB 03/10/19 13:00 03/17/19 12:59 03/10/19 12:55 Chlorhexidine Gluconate (Phyllis-Hex 2%) 1 applic DAILY@2000 TOPIC 03/10/19 20:00 04/09/19 19:59 Folic Acid (Folate) 1 mg DAILY ORAL 03/11/19 09:00 04/10/19 08:59 Lorazepam (Ativan) 2 mg BID ORAL 03/09/19 18:00 03/16/19 17:59 Morphine Sulfate (Morphine Sulfate) 2 mg Q4H PRN IVP Severe Pain (Pain Scale 7-10) 03/10/19 07:30 03/16/19 23:29 Temazepam (Restoril) 15 mg HSPRN PRN ORAL Insomnia 03/09/19 00:30 03/16/19 00:29 03/09/19 21:23 Assessment/Plan Assessment/Plan: (1) Uterine Sarcoma (2) Pelvic pain Seen dictated. Koffi Fabian March 10, 2019 15:52
[2019-03-10 16:00] VITALS: BP 151/79
--- NOTE | 2019-03-10 17:55 | NUR ---
NURSE NOTES: Patient wants to be discharged by tomorrow at noon with prescriptions. She wants to be able to get prescriptions. Contacted Dr. Coronado to let him know. Will await call back.
[2019-03-10 20:00] VITALS: BP 141/81
[2019-03-10] MEDS ORDERED: Dyna-Hex 2% Top Sol 2oz TOPIC SCH (20:00)
--- NOTE | 2019-03-10 20:05 | NUR ---
NURSE NOTES: RECEIVED PATIENT RESTING IN BED, FAMILY AT BEDSIDE. FALL PRECAUTIONS IN PLACE: CALL LIGHT AND BEDSIDE TABLE WITHIN REACH, BED IN LOW POSITION. PLAN OF CARE REVIEWED.
--- NOTE | 2019-03-10 20:10 | NUR ---
HAND-OFF: Report given to GIANNA Garcia. Plan of care endorsed.
--- NOTE | 2019-03-10 20:51 | General Progress Note ---
Assessment/Plan Problem List: (1) Anemia ICD Codes: D64.9 - Anemia, unspecified SNOMED: 142964166 (2) History of sarcoma ICD Codes: Z85.831 - Personal history of malignant neoplasm of soft tissue SNOMED: 163906920 (3) Urinary tract infection ICD Codes: N39.0 - Urinary tract infection, site not specified SNOMED: 14279121 (4) Opioid dependence ICD Codes: F11.20 - Opioid dependence, uncomplicated SNOMED: 53529641 (5) Sepsis ICD Codes: A41.9 - Sepsis, unspecified organism SNOMED: 14731060 Status: stable Assessment/Plan: sepsis chronic pain uterine sarcoma afebrile leukocytosis is improving Subjective ROS Limited/Unobtainable: Yes Allergies: Coded Allergies: LEVOFLOXACIN (Verified Allergy, Unknown, 05/01/17) Objective Last 24 Hour Vital Signs Date Time Temp Pulse Resp B/P (MAP) Pulse Ox O2 Delivery O2 Flow Rate FiO2 03/10/19 16:00 97.2 83 20 151/79 (103) 97 03/10/19 16:00 78 03/10/19 12:00 97.3 83 18 147/78 (101) 96 03/10/19 12:00 95 03/10/19 09:09 87 18 Room Air 21 03/10/19 09:00 Room Air 03/10/19 08:00 97.6 91 20 144/86 (105) 97 03/10/19 08:00 91 03/10/19 04:00 98.8 88 18 132/64 (86) 97 03/10/19 04:00 97 03/10/19 00:00 97.7 91 18 120/69 (86) 98 03/10/19 00:00 89 03/09/19 21:00 Room Air Intake and Output 03/09/19 03/10/19 19:00 07:00 Intake Total 1360 ml 110.0 ml Balance 1360 ml 110.0 ml Intake Oral 360 ml IV Total 110.0 ml Blood Product 1000 ml # Voids 2 2 # Bowel Movements 1 Laboratory Tests 03/10/19 05:00: White Blood Count 12.6H, Red Blood Count 3.23L, Hemoglobin 8.6L, Hematocrit 26.1L, Mean Corpuscular Volume 81, Mean Corpuscular Hemoglobin 26.7L, Mean Corpuscular Hemoglobin Concent 33.1, Red Cell Distribution Width 16.5H, Platelet Count 272, Mean Platelet Volume 6.7, Neutrophils (%) (Auto) 75.1H, Lymphocytes (%) (Auto) 15.3L, Monocytes (%) (Auto) 6.9, Eosinophils (%) (Auto) 2.2, Basophils (%) (Auto) 0.5, Reticulocyte Count 0.3L, Prothrombin Time 11.0, Prothromb Time International Ratio 1.0, Activated Partial Thromboplast Time 36H , Sodium Level 140, Potassium Level 3.8, Chloride Level 106, Carbon Dioxide Level 28, Anion Gap 6, Blood Urea Nitrogen 13, Creatinine 0.9, Estimat Glomerular Filtration Rate > 60, Glucose Level 92, Calcium Level 7.8L, Iron Level 22L, Total Iron Binding Capacity 127L, Percent Iron Saturation 17, Unsaturated Iron Binding 105L, Ferritin 107, Total Bilirubin 0.3, Aspartate Amino Transf (AST/SGOT) 32, Alanine Aminotransferase (ALT/SGPT) 30, Alkaline Phosphatase 173H, Total Protein 6.9, Albumin 2.0L, Globulin 4.9, Albumin/ Globulin Ratio 0.4L, Carcinoembryonic Antigen [Pending], Vitamin B12 Level > 2000H, Folate 6.6L, Thyroid Stimulating Hormone (TSH) 2.976, Free Thyroxine 1.02 Height (Feet): 5 Height (Inches): 8.00 Weight (Pounds): 192 Neck: supple Cardiovascular: normal rate Respiratory/Chest: lungs clear Alber Coronado MD March 10, 2019 20:51
--- NOTE | 2019-03-10 21:00 | Consultation ---
DATE OF CONSULTATION: 03/10/2019 PAIN MANAGEMENT CONSULTATION CONSULTING PHYSICIAN: Pal Barlow M.D. REFERRING PHYSICIAN: Alber Coronado M.D. PHYSICIAN HAT MENDER: Yuval Li CHIEF COMPLAINT: Pelvic pain. HISTORY OF PRESENT ILLNESS: The patient is a 58-year-old female who is being seen on the telemetry floor of [facility] for initial pain management consultation. The patient was admitted under the care of Dr. oCronado with complaints of pelvic pain, found to have uterine sarcoma, being seen by an oncologist as an outpatient, Dr. gurrola now is here being seen by Dr. Celestine Perez, reports that her pain can reach an 8/10, however was started on morphine 2 mg IV every 4 hours as needed for severe pain and [place] 10/325 one tablet every four hours as needed for moderate pain. At this time, the patient is comfortable, reporting that the medication regimen has adequately relieved her pain to tolerable levels. We were consulted so the patient would have adequate pain control while here in the hospital. PAST MEDICAL HISTORY: Uterine sarcoma, anemia, anxiety. PAST SURGICAL HISTORY: Hysterectomy, mass reduction. SOCIAL HISTORY: Denies smoking tobacco, drinking alcohol, or IV drug abuse. ALLERGIES: Levofloxacin. MEDICATIONS: Xanax, ferrous sulfate, Neurontin, lorazepam, Spiriva, [place], Restoril, tramadol. REVIEW OF SYSTEM: Denies rash, fever, chills, sweating, dizziness, drowsiness, blurred vision, sore throat, or change in weight. No shortness of breath or chest pain. No nausea, vomiting, or blood in the stool or urine. No bowel or bladder incontinence. No dysuria. She is complaining of pelvic pain. PHYSICAL EXAMINATION: GENERAL: Alert, awake, oriented. VITAL SIGNS: Blood pressure 147/78, heart rate 83, oxygen saturation 96%, respiratory rate 18, temperature 97.3 degrees Fahrenheit. HEENT: PERRLA. NECK: Range of motion is full in all directions. No tenderness to paracervical muscles. No adenopathy. LUNGS: Decreased breath sounds bilaterally. HEART: S1 and S2 regular. ABDOMEN: Tenderness to palpation. BACK: Range of motion is decreased in flexion and extension. EXTREMITIES: Upper and lower extremity range of motion is decreased due to the patient's condition. No cyanosis. No clubbing. Sensory is intact. Reflexes are not obtainable. No adenopathy. ASSESSMENT AND PLAN: This is a 58-year-old female with uterine sarcoma, pelvic pain. The patient will be continued on morphine and [place] as needed. The patient was discussed with Dr. Barlow and Dr. Barlow concurred. We will follow the patient. Thank you much for the courtesy of this consultation. Pal Barlow M.D. NINA Li DR: Jason JOB#: [id number] CC: ANABELLA
[2019-03-10] MEDS: Budesonide HHN 0.25mg/2ml ud HHN SCH (22:16)
[2019-03-11] VITALS: BP 149/83
--- NOTE | 2019-03-11 02:45 | Progress Note ---
DATE: 03/08/2019 SUBJECTIVE: The patient is presenting with anxiety. The patient is compliant with her medications, focused on discharge, complaining of pain. MENTAL STATUS EVALUATION: The patient is alert and oriented times self, place, and situation she is in. Thought process is linear. Thought content, no suicidal or homicidal ideations. ASSESSMENT: 1. Major depressive disorder . 2. Anxiety disorder. PLAN: 1. We will continue the Wellbutrin. 2. Continue Ativan. 3. Continue Xanax. 4. Provide the patient with reality orientation and supportive therapy. Stan Arenas M.D. DR: Michael JOB#: [id number] CC:
[2019-03-11 04:00] VITALS: BP 160/85
--- NOTE | 2019-03-11 05:36 | Pulmonology Progress Note ---
Assessment/Plan Assessment/Plan Pulmonary Progres Note 03/10/2019 HPI Patient is a 58-year-old female with history of Uterine Sarcoma, she presented after increased lower abdominal pain and vaginal bleeding. Patient reports of increased vomiting as well as watery diarrhea since 2 days prior to arrival. Patient reports having nonbilious emesis. 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 Patient's prior CT imaging showed some reduction in size of the tumor.Patient reports having hysterectomy at [facility].She denies any hematemesis or bloody stools. She reports having her hemoglobin checked regularly and states her last hemoglobin was approximately 9. She still reports having loose stool. Allergies: LEVOFLOXACIN Past Medical History: Uterine Sarcoma, Asthma, Allergic Rhinitis Physical Exam Vital Signs Noted General Appearance: normal inspection, well appearing, no apparent distress, alert, GCS 15, Chronically Ill Head: atraumatic Eyes: bilateral eye conjunctivae pale ENT: normal ENT inspection, hearing grossly normal, normal voice Neck: normal inspection, full range of motion, supple, no bony tend, other - portacath Respiratory: normal inspection, lungs clear, normal breath sounds, no respiratory distress, no wheezing Cardiovascular: HS1, HS2, regular rate, rhythm, no edema Gastrointestinal: normal inspection, normal bowel sounds, soft, no guarding, no hernia, tenderness - lower abdomen Genitourinary: no CVA tenderness Musculoskeletal: normal inspection, back normal, normal range of motion Neurologic: normal inspection, alert, oriented x3, responsive, speech normal Psychiatric: normal inspection, judgement/insight normal, mood/affect normal Skin: normal inspection, no rash, pallor Diagnostic Impression: Possible Sepsis Uterine sarcoma Urinary tract infection Opioid dependence Asthma Plan IV antibiotics per ID HHN Nebulized Budesonide O2 PRN RO PE Transfuse PRN. PPX - SCD Monitor Labs VQ scan Echocardiogram CT imaging of abdomen pelvis read by radiology showed bladder compressed and displaced anteriorly; no hydronephrosis multiple clips from pelvic dissection hepatomegaly no ascites abscess or small bowel obstruction. CXR: Clear LF, Cardiomegaly. LE Dupplex: Negative for DVT Labs Test 03/08/19 18:20 03/08/19 19:00 White Blood Count 20.5 K/UL (4.8-10.8) Red Blood Count 2.91 M/UL (4.20-5.40) Hemoglobin 7.5 G/DL (12.0-16.0) Hematocrit 22.8 % (37.0-47.0) Mean Corpuscular Volume 78 FL (80-99) Mean Corpuscular Hemoglobin 25.8 PG (27.0-31.0) Mean Corpuscular Hemoglobin Concent 33.0 G/DL (32.0-36.0) Red Cell Distribution Width 16.1 % (11.6-14.8) Platelet Count 297 K/UL (150-450) Mean Platelet Volume 5.1 FL (6.5-10.1) Neutrophils (%) (Auto) % (45.0-75.0) Lymphocytes (%) (Auto) % (20.0-45.0) Monocytes (%) (Auto) % (1.0-10.0) Eosinophils (%) (Auto) % (0.0-3.0) Basophils (%) (Auto) % (0.0-2.0) Differential Total Cells Counted 100 Neutrophils % (Manual) 76 % (45-75) Lymphocytes % (Manual) 4 % (20-45) Monocytes % (Manual) 2 % (1-10) Eosinophils % (Manual) 0 % (0-3) Basophils % (Manual) 2 % (0-2) Band Neutrophils 16 % (0-8) Platelet Estimate Adequate Platelet Morphology Normal Polychromasia 1+ Hypochromasia 1+ Anisocytosis 1+ Microcytosis 1+ Urine Color Brown Urine Appearance Turbid Urine pH 8 (4.5-8.0) Urine Specific [place] 1.010 (1.005-1.035) Urine Protein 4+ (NEGATIVE) Urine Glucose (UA) Negative (NEGATIVE) Urine Ketones 1+ (NEGATIVE) Urine Blood 5+ (NEGATIVE) Urine Nitrite Negative (NEGATIVE) Urine Bilirubin Negative (NEGATIVE) Urine Urobilinogen Normal MG/DL (0.0-1.0) Urine Leukocyte Esterase 3+ (NEGATIVE) Urine RBC Tntc /HPF (0 - 2) Urine WBC Tntc /HPF (0 - 2) Urine Squamous Epithelial Cells Moderate /LPF (NONE/OCC) Urine Bacteria Many /HPF (NONE) Sodium Level 137 MMOL/L (136-145) Potassium Level 3.9 MMOL/L (3.5-5.1) Chloride Level 100 MMOL/L (98-107) Carbon Dioxide Level 28 MMOL/L (21-32) Anion Gap 9 mmol/L (5-15) Blood Urea Nitrogen 20 mg/dL (7-18) Creatinine 1.2 MG/DL (0.55-1.30) Estimat Glomerular Filtration Rate 55.6 mL/min (>60) Glucose Level 111 MG/DL (74-106) Calcium Level 7.9 MG/DL (8.5-10.1) Total Bilirubin 0.5 MG/DL (0.2-1.0) Aspartate Amino Transf (AST/SGOT) 26 U/L (15-37) Alanine Aminotransferase (ALT/SGPT) 19 U/L (12-78) Alkaline Phosphatase 147 U/L (46-116) Total Protein 7.4 G/DL (6.4-8.2) Albumin 2.3 G/DL (3.4-5.0) Globulin 5.1 g/dL Albumin/Globulin Ratio 0.5 (1.0-2.7) Lipase 55 U/L (73-393) Lactic Acid Level 0.70 mmol/L (0.4-2.0) Patient seen 03/10/2019 Subjective ROS Limited/Unobtainable: No Allergies: Coded Allergies: LEVOFLOXACIN (Verified Allergy, Unknown, 05/01/17) Objective Last 24 Hour Vital Signs Date Time Temp Pulse Resp B/P (MAP) Pulse Ox O2 Delivery O2 Flow Rate FiO2 03/11/19 04:00 79 03/11/19 00:00 82 03/11/19 00:00 98.0 90 20 149/83 (105) 100 03/10/19 22:17 88 18 97 Room Air 21 03/10/19 21:00 Room Air 03/10/19 20:00 97.2 89 20 141/81 (101) 100 03/10/19 20:00 107 03/10/19 16:00 97.2 83 20 151/79 (103) 97 03/10/19 16:00 78 03/10/19 12:00 97.3 83 18 147/78 (101) 96 03/10/19 12:00 95 03/10/19 09:09 87 18 Room Air 21 03/10/19 09:00 Room Air 03/10/19 08:00 97.6 91 20 144/86 (105) 97 03/10/19 08:00 91 Intake and Output 5/9/19 5/10/19 19:00 07:00 Intake Total 240 ml Balance 240 ml Intake Oral 240 ml # Voids 2 # Bowel Movements 3 Microbiology Date/Time Source Procedure Growth Status 03/08/19 19:00 Blood Blood Culture - Preliminary NO GROWTH AFTER 48 HOURS Resulted 03/08/19 18:45 Blood Blood Culture - Preliminary NO GROWTH AFTER 48 HOURS Resulted 03/10/19 09:23 Stool Clostridium difficile Toxin Assay - Final Complete 03/08/19 18:20 Urine,Clean Catch Urine Culture - Final Proteus Mirabilis Escherichia Coli Complete Current Medications Medications (Trade) Dose Ordered Sig/Nery Route PRN Reason Start Time Stop Time Status Last Admin Dose Admin Acetaminophen (Tylenol) 650 mg Q6H PRN ORAL Mild Pain/Temp > 100.5 03/08/19 23:15 04/07/19 23:14 Acetaminophen/ Hydrocodone Bitart ([place] 10/325) 1 tab Q6HR PRN ORAL Pain Scale (6-10) 03/08/19 23:15 03/15/19 23:14 03/10/19 20:30 Albuterol/ Ipratropium (Albuterol/ Ipratropium) 3 ml Q4HRT PRN HHN Shortness of Breath 03/09/19 03:00 03/14/19 02:59 03/09/19 04:36 Alprazolam (Xanax) 1 mg DAILYPRN PRN ORAL For Anxiety 03/09/19 14:45 03/16/19 14:44 Budesonide (Pulmicort) 0.5 mg EVERY 12 HOURS HHN 03/10/19 21:00 04/08/19 20:59 03/10/19 22:16 Bupropion HCl (Wellbutrin) 100 mg DAILY ORAL 03/10/19 09:00 04/09/19 08:59 Ceftriaxone Sodium 1 gm/ Dextrose 55 ml @ 110 mls/hr DAILY IVPB 03/10/19 13:00 03/17/19 12:59 03/10/19 12:55 Chlorhexidine Gluconate (Phyllis-Hex 2%) 1 applic DAILY@2000 TOPIC 03/10/19 20:00 04/09/19 19:59 03/10/19 20:29 Folic Acid (Folate) 1 mg DAILY ORAL 03/11/19 09:00 04/10/19 08:59 Lorazepam (Ativan) 2 mg BID ORAL 03/09/19 18:00 03/16/19 17:59 03/10/19 18:12 Morphine Sulfate (Morphine Sulfate) 2 mg Q4H PRN IVP Severe Pain (Pain Scale 7-10) 03/10/19 07:30 03/16/19 23:29 Temazepam (Restoril) 15 mg HSPRN PRN ORAL Insomnia 03/09/19 00:30 03/16/19 00:29 03/10/19 23:30 Gigi Oliveira MD March 11, 2019 05:36
--- NOTE | 2019-03-11 07:30 | NUR ---
HAND-OFF: Report given to Yg PADRON RN. PATIENT RESTING IN BED, NO SIGNS OF DISTRESS NOTED.
--- NOTE | 2019-03-11 07:31 | NUR ---
NURSE NOTES: Received report from GIANNA Garcia. The patient is resting on bed without acute distress or shortness of breath. The patient bed is in the lowest position, call light in reach, and fall precaution reinforced. Will monitor vital sign closely. Will continue plan of care.
[2019-03-11 08:00] VITALS: BP 148/75
[2019-03-11] MEDS: LORazepam 1mg tab ORAL SCH (08:59)
[2019-03-11] MEDS: cefTRIAXone 1 GM in D5W 55 ML IVPB SCH (09:00)
[2019-03-11] MEDS: Budesonide HHN 0.25mg/2ml ud HHN SCH (09:15)
--- NOTE | 2019-03-11 09:41 | General Progress Note ---
Assessment/Plan Assessment/Plan: (1) Uterine Sarcoma (2) Pelvic pain Patient to be continued on [place] and Morphine An Rx for [place] 10/325mg PO 1 tab Q6-8H PRN 20 tabs was sent to patients pharmacy of choice. D/w Dr. Barlow and he concurred. Subjective Date patient seen: March 11, 2019 Time patient seen: 08:15 - am Allergies: Coded Allergies: LEVOFLOXACIN (Verified Allergy, Unknown, 05/01/17) Subjective REVIEW OF SYSTEM: Denies rash, fever, chills, sweating, dizziness, drowsiness, blurred vision, sore throat, or change in weight. No shortness of breath or chest pain. No nausea, vomiting, or blood in the stool or urine. No bowel or bladder incontinence. No dysuria. She is complaining of pelvic pain. SUBJECTIVE: Patient is in bed and pain has been stable on the Morphine and [place]. She has no new complaints at this time and is looking forward to being discharged as per plastic sewer. Objective Last 24 Hour Vital Signs Date Time Temp Pulse Resp B/P (MAP) Pulse Ox O2 Delivery O2 Flow Rate FiO2 03/11/19 09:30 79 18 99 Nasal Cannula 2.0 28 03/11/19 09:15 85 18 Room Air 21 03/11/19 09:15 85 18 97 Room Air 21 03/11/19 04:00 79 03/11/19 04:00 97.3 98 20 160/85 (110) 98 03/11/19 00:00 82 03/11/19 00:00 98.0 90 20 149/83 (105) 100 03/10/19 22:17 88 18 97 Room Air 21 03/10/19 21:00 Room Air 03/10/19 20:00 97.2 89 20 141/81 (101) 100 03/10/19 20:00 107 03/10/19 16:00 97.2 83 20 151/79 (103) 97 03/10/19 16:00 78 03/10/19 12:00 97.3 83 18 147/78 (101) 96 03/10/19 12:00 95 Intake and Output 03/10/19 03/11/19 19:00 07:00 Intake Total 240 ml 120 ml Balance 240 ml 120 ml Intake Oral 240 ml 120 ml # Voids 2 # Bowel Movements 3 Height (Feet): 5 Height (Inches): 8.00 Weight (Pounds): 192 Objective GENERAL: Alert, awake, oriented. LUNGS: Decreased breath sounds bilaterally. HEART: S1 and S2 regular. ABDOMEN: Tenderness to palpation. EXTREMITIES: No cyanosis. No clubbing. NEURO: No changes. Koffi Fabian March 11, 2019 09:41
--- NOTE | 2019-03-11 10:33 | Infectious Diseases Prog Note ---
Assessment/Plan Assessment/Plan IMPRESSION: Sepsis improving complicated urinary tract infection with E. coli & Proteus Uterine sarcoma severe anemia, asthma by history, DVT history Diarrhea, C. difficile negative RECOMMENDATION: 1. change Zosyn to Rocephin 2. Can be discharge with PO Keflex X 5 days 3. Case was D/W PMD & RN Subjective Constitutional: Reports: no symptoms Cardiovascular: Reports: no symptoms Gastrointestinal/Abdominal: Reports: diarrhea, other - decreased Genitourinary: Reports: no symptoms Allergies: Coded Allergies: LEVOFLOXACIN (Verified Allergy, Unknown, 05/01/17) Objective Vital Signs Last 24 Hour Vital Signs Date Time Temp Pulse Resp B/P (MAP) Pulse Ox O2 Delivery O2 Flow Rate FiO2 03/11/19 09:30 79 18 99 Nasal Cannula 2.0 28 03/11/19 09:15 85 18 Room Air 21 03/11/19 09:15 85 18 97 Room Air 21 03/11/19 04:00 79 03/11/19 04:00 97.3 98 20 160/85 (110) 98 03/11/19 00:00 82 03/11/19 00:00 98.0 90 20 149/83 (105) 100 03/10/19 22:17 88 18 97 Room Air 21 03/10/19 21:00 Room Air 03/10/19 20:00 97.2 89 20 141/81 (101) 100 03/10/19 20:00 107 03/10/19 16:00 97.2 83 20 151/79 (103) 97 03/10/19 16:00 78 03/10/19 12:00 97.3 83 18 147/78 (101) 96 03/10/19 12:00 95 Height (Feet): 5 Height (Inches): 8.00 Weight (Pounds): 192 General Appearance: no acute distress HEENT: mucous membranes moist Respiratory/Chest: lungs clear Cardiovascular: normal rate Abdomen: soft, non tender Neurologic/Psychiatric: alert, oriented x 3, responsive Microbiology Date/Time Source Procedure Growth Status 03/08/19 19:00 Blood Blood Culture - Preliminary NO GROWTH AFTER 48 HOURS Resulted 03/08/19 18:45 Blood Blood Culture - Preliminary NO GROWTH AFTER 48 HOURS Resulted 03/10/19 09:23 Stool Clostridium difficile Toxin Assay - Final Complete 03/08/19 18:20 Urine,Clean Catch Urine Culture - Final Proteus Mirabilis Escherichia Coli Complete Current Medications Medications (Trade) Dose Ordered Sig/Nery Route PRN Reason Start Time Stop Time Status Last Admin Dose Admin Acetaminophen (Tylenol) 650 mg Q6H PRN ORAL Mild Pain/Temp > 100.5 03/08/19 23:15 04/07/19 23:14 Acetaminophen/ Hydrocodone Bitart ([place] 10/325) 1 tab Q6HR PRN ORAL Pain Scale (6-10) 03/08/19 23:15 03/15/19 23:14 03/10/19 20:30 Albuterol/ Ipratropium (Albuterol/ Ipratropium) 3 ml Q4HRT PRN HHN Shortness of Breath 03/09/19 03:00 03/14/19 02:59 03/09/19 04:36 Alprazolam (Xanax) 1 mg DAILYPRN PRN ORAL For Anxiety 03/09/19 14:45 03/16/19 14:44 Budesonide (Pulmicort) 0.5 mg EVERY 12 HOURS HHN 03/10/19 21:00 04/08/19 20:59 03/11/19 09:15 Bupropion HCl (Wellbutrin) 100 mg DAILY ORAL 03/10/19 09:00 04/09/19 08:59 03/11/19 08:59 Ceftriaxone Sodium 1 gm/ Dextrose 55 ml @ 110 mls/hr DAILY IVPB 03/10/19 13:00 03/17/19 12:59 03/10/19 12:55 Chlorhexidine Gluconate (Phyllis-Hex 2%) 1 applic DAILY@2000 TOPIC 03/10/19 20:00 04/09/19 19:59 03/10/19 20:29 Folic Acid (Folate) 1 mg DAILY ORAL 03/11/19 09:00 04/10/19 08:59 03/11/19 08:59 Lorazepam (Ativan) 2 mg BID ORAL 03/09/19 18:00 03/16/19 17:59 03/11/19 08:59 Morphine Sulfate (Morphine Sulfate) 2 mg Q4H PRN IVP Severe Pain (Pain Scale 7-10) 03/10/19 07:30 03/16/19 23:29 Temazepam (Restoril) 15 mg HSPRN PRN ORAL Insomnia 03/09/19 00:30 03/16/19 00:29 03/10/19 23:30 Carlos Whiteside MD March 11, 2019 10:33
--- NOTE | 2019-03-11 10:57 | GI Progress Note ---
Assessment/Plan Problems: (1) Anemia ICD Codes: D64.9 - Anemia, unspecified SNOMED: 410326937 (2) History of sarcoma ICD Codes: Z85.831 - Personal history of malignant neoplasm of soft tissue SNOMED: 205038778 Status: unchanged Status Narrative Discussed with Dr. Brown. Assessment/Plan Abdominal pelvic CT reviewed, large uterine mass, see full report. OB stool negative defer EGD/colonoscopy at this time, outpatient monitor H&H, prn transfusions bowel regime ppi fu labs fu [facility] dc planning The patient was seen and examined at bedside and all new and available data was reviewed in the patients chart. I agree with the above findings, impression and plan. (Patient seen earlier today. Signature stamp does not reflect patient encounter time.). - Jaiden Brown MD Subjective Gastrointestinal/Abdominal: Reports: no symptoms Objective Last 24 Hour Vital Signs Date Time Temp Pulse Resp B/P (MAP) Pulse Ox O2 Delivery O2 Flow Rate FiO2 03/11/19 09:30 79 18 99 Nasal Cannula 2.0 28 03/11/19 09:15 85 18 Room Air 21 03/11/19 09:15 85 18 97 Room Air 21 03/11/19 08:00 98.0 94 20 148/75 (99) 95 03/11/19 04:00 79 03/11/19 04:00 97.3 98 20 160/85 (110) 98 03/11/19 00:00 82 03/11/19 00:00 98.0 90 20 149/83 (105) 100 03/10/19 22:17 88 18 97 Room Air 21 03/10/19 21:00 Room Air 03/10/19 20:00 97.2 89 20 141/81 (101) 100 03/10/19 20:00 107 03/10/19 16:00 97.2 83 20 151/79 (103) 97 03/10/19 16:00 78 03/10/19 12:00 97.3 83 18 147/78 (101) 96 03/10/19 12:00 95 Intake and Output 03/10/19 03/11/19 19:00 07:00 Intake Total 240 ml 120 ml Balance 240 ml 120 ml Intake Oral 240 ml 120 ml # Voids 2 # Bowel Movements 3 Height (Feet): 5 Height (Inches): 8.00 Weight (Pounds): 192 General Appearance: alert Cardiovascular: normal rate Respiratory/Chest: normal breath sounds, no respiratory distress Abdominal Exam: soft Extremities: normal range of motion Jigar White NP March 11, 2019 10:57
[2019-03-11 12:00] VITALS: BP 155/75
--- NOTE | 2019-03-11 12:58 | NUR ---
CASE MANAGEMENT:REVIEW 03/11/19 SI: SEPSIS. ANEMIA. DEHYDRATION. UTI OPIOID DEPENDENCE 98.0 85 18 148/75 95% ON RA IS: IV ROCEPHIN QD FOLATE PO QD PULMICORT HHN Q12 WELLBUTRIN PO QD ATIVAN PO BID DUONEB HHN Q4HRS PRN NORCO PO Q6HRS PRN : TELEMETRY DCP: FROM HOME
--- NOTE | 2019-03-11 13:25 | NUR ---
NURSE NOTES: The patient's sister, Marleny, took the patient safely to home via private vehicle. The patient denies of acute distress or shortness of breath. Patient's belongings were checked with the patient at bedside and signed by the patient. Discharge instruction and patient teaching provided to the patient. Teaching regarding medication is also provided. Removed ID band, IV, and tele monitoring box in a safe manner.
--- NOTE | 2019-03-11 13:54 | General Progress Note ---
Assessment/Plan Status: unchanged Assessment/Plan: Assessment and Recs # Uterine Sarcoma histroy s/p surgery in the past by Dr. Morales and further chemotherapy with Dr. Concepcion Williamson off [facility], also in the past had seen Dr. Esquivel, but that was for evaluation of clinical trial, was not interested. On this admission, imaging shows CT imaging shows Heterogeneous mass in the pelvis mass is still noted measuring approximately 12 x 12 x 17 cm. Uncertain whether this represents residual or recurrent mass and correlation with surgical history is recommended. Extension of the mass into the bladder is noted --> s/p embolization treatment as well as hysterectomy. --> CT scan shows large uterine mass --> needs further surgery eval and potential outpatient chemo --> patient at this time refusing procedures --> outpatient management as per Dr. CONCEPCION WILLIAMSON, she said will return to him # Anemia of chronic disease due to underlying chronic medical issues, multifactorial --> Anemia workup has been reviewed, and shows no evidence of iron deficiency --> No evidence of hemolysis is noted, peripheral smear has been reviewed. --> Hgb goal >7. Transfuse prn. --> Epogen or iron at this time is not particularly indicated --> Medications have been reviewed --> evaluate with Gi team prn --> transfuse if hgb is < 7 (will trend CBC daily) --> low threshold for gi evaluation in case has occult + --> bone marrow biopsy is not indicated given the other more likely causes # Anemia due to underlying vaginal bleeding --> eunice consider premarin cream --> obtain gynecology eval # Leukocytosis is likely 2/2 reactive process --> trend cbc as needed --> id eval on prn basis # GERD continue ppi The timing of this note does not necessarily reflect the time of the patient was seen. Greatly appreciate consultation! Subjective Constitutional: Denies: no symptoms, chills, diaphoresis, fever, malaise, weakness, other HEENT: Denies: no symptoms, eye pain, blurred vision, tearing, double vision, ear pain, ear discharge, nose pain, nose congestion, throat pain, throat swelling, mouth pain, mouth swelling, other Cardiovascular: Denies: no symptoms, chest pain, edema, irregular heart rate, lightheadedness, palpitations, syncope, other Respiratory: Denies: no symptoms, cough, orthopnea, shortness of breath, SOB with excertion, SOB at rest, sputum, stridor, wheezing, other Gastrointestinal/Abdominal: Denies: no symptoms, abdomen distended, abdominal pain, black stools, tarry stools, blood in stool, constipated, diarrhea, difficulty swallowing, nausea, poor appetite, poor fluid intake, rectal bleeding , vomiting, other Genitourinary: Denies: no symptoms, burning, discharge, frequency, flank pain, hematuria, incontinence, pain, urgency, other Endocrine: Denies: no symptoms, excessive sweating, flushing, intolerance to cold, intolerance to heat, increased hunger, increased thirst, increased urine, unexplained weight gain, unexplained weight loss, other Hematologic/Lymphatic: Denies: no symptoms, anemia, easy bleeding, easy bruising, other Allergies: Coded Allergies: LEVOFLOXACIN (Verified Allergy, Unknown, 05/01/17) Subjective 03/10: no events, no fevers noted, hgb remains stable, occult pending 03/11: considering discharge today on morphine/norco, had a long discussion, she will return to Dr. Concepcion Williamson Objective Last 24 Hour Vital Signs Date Time Temp Pulse Resp B/P (MAP) Pulse Ox O2 Delivery O2 Flow Rate FiO2 03/11/19 09:30 79 18 99 Nasal Cannula 2.0 28 03/11/19 09:15 85 18 Room Air 21 03/11/19 09:15 85 18 97 Room Air 21 03/11/19 09:00 Room Air 03/11/19 08:00 93 03/11/19 08:00 98.0 94 20 148/75 (99) 95 03/11/19 04:00 79 03/11/19 04:00 97.3 98 20 160/85 (110) 98 03/11/19 00:00 82 03/11/19 00:00 98.0 90 20 149/83 (105) 100 03/10/19 22:17 88 18 97 Room Air 21 03/10/19 21:00 Room Air 03/10/19 20:00 97.2 89 20 141/81 (101) 100 03/10/19 20:00 107 03/10/19 16:00 97.2 83 20 151/79 (103) 97 03/10/19 16:00 78 Intake and Output 03/10/19 03/11/19 18:59 06:59 Intake Total 240 ml 120 ml Balance 240 ml 120 ml Intake Oral 240 ml 120 ml # Voids 2 # Bowel Movements 3 Height (Feet): 5 Height (Inches): 8.00 Weight (Pounds): 192 Objective General: well appearing, no apparent distress Head: normocephalic EENT: PERRL/EOMI, normal ENT inspection Neck: supple Respiratory: normal breath sounds, no respiratory distress Cardiovascular: normal rate Gastrointestinal: normal inspection, non tender, soft Rectal: deferred Genitourinary: no CVA tenderness Musculoskeletal: normal inspection, back normal Neurologic: normal inspection, alert, oriented x3, responsive Skin: normal inspection, normal color, no rash Lymphatic: normal inspection, no adenopathy Celestine Perez MD March 11, 2019 13:54
--- NOTE | 2019-03-14 09:00 | Discharge Summary ---
Discharge Summary Discharge Summary _ DATE OF ADMISSION: 03/08/2019 DATE OF DISCHARGE: 03/11/2019 DISCHARGED BY: Dr Coronado REASON FOR ADMISSION: 58 years old female with past medical history of asthma, hypertension, uterine cancer, presented to emergency department with lower abdominal pain and watery diarrhea 2 days prior to presentation. Patient also reported non-bilious emesis Patient with prior history of uterine sarcoma, status post embolization, status post hysterectomy. Prior CT imaging showed reduction in size of tumor. She denied bloody stool or hematemesis. She reports having her hemoglobin checked regularly, and is around 9. Upon evaluation patient was hypotensive and tachycardic. Laboratory work-up revealed leukocytosis with WBC 20.5. Lactic acid 0.7. Hemoglobin 7.5, hematocrit 22.8. Urinalysis revealed evidence of UTI. Stable electrolytes, BUN 20, creatinine 1.2. Stable LFT. Patient reported no recent chemotherapy, but was scheduled to see a surgical oncologist. Patient is using at home [place] and methadone for pain control . Patient subsequently admitted for sepsis, urinary tract infection, history of uterine sarcoma, and opioid dependency. CONSULTANTS: pulmonary Dr. Oliveira ID specialist Dr. Blum supervisor color paste mixing/oncologist Dr. Perez psychiatrist pain specialist Dr. Barlow [facility] COURSE: Patient admitted to telemetry floor. Patient started on empiric antibiotics and IV fluids. Urine culture revealed Proteus mirabilis and E. coli. Stool for C. difficile was negative. Blood cultures were negative. Antibiotic regimen was optimized based on sensitivity. Patient was discharged on oral antibiotics to complete the course at home. Leukocytosis trending down , prior to discharge 12.6. GI specialist followed. CT of the abdomen and pelvis revealed heterogeneous mass in the pelvis measuring approximately 12 x 12 x 17 cm. Extension of the mass into the bladder was noted. Mass appeared inseparable from the anterior rectum and rectal wall involvement was not excluded. No evidence of associated bowel obstruction. No evidence of hydronephrosis or perinephric stranding. Stool for occult blood was negative. Per GI specialist defer EGD/colonoscopy at this time, can be done as outpatient. Symptomatic care provided. Antiemetic were on board as needed . Patient started on PPI. Diarrhea improved. Oncologist followed. Patient with history of uterine sarcoma, status post surgery in the past and further chemotherapy. Patient was not interested in clinical trials. Oncologist recommended follow-up with surgical oncologist and potential outpatient chemotherapy. Anemia work-up revealed no evidence of iron deficiency. No evidence of hemolysis. Peripheral blood smear was reviewed. Patient had anemia of chronic disease, likely due to underlying chronic medical issues, multifactorial. Epogen or iron this time but not particularly indicated. Hemoglobin and hematocrit were closely monitored with goal to keep hemoglobin above 7. Prior to discharge hemoglobin 8.6, hematocrit 26.1. Pain specialist closely followed. Pain management provided as per pain specialist recommendation. Pain was controlled. 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 Supplemental oxygen was on board as needed to keep pulse oximetry above 92%. Pulmonary toilet provided with bronchodilator and inhaled steroids. Venous duplex bilateral lower extremity revealed no evidence of DVT. Pulse oximetry was stable on room air prior to discharge. Blood pressure improved . Prior to discharge blood pressure 155/75. DVT prophylaxis with SCD continued. Psychiatrist followed and diagnosed patient with major depressive disorder and anxiety disorder. Wellbutrin continued along with Ativan and Xanax. Reality orientation and supportive therapy provided. Clinically stabilized and was ready for discharge home. FINAL DIAGNOSIS Sepsis Complicated UTI with E. coli and Proteus Uterine sarcoma Severe anemia Asthma Diarrhea (stool C. difficile negative) History of DVT DISCHARGE MEDICATIONS: See Medication Reconciliation list. DISCHARGE INSTRUCTIONS: Patient was discharged home . Follow up with primary care provider in one week. Follow up with a surgical oncologist as scheduled I have been assigned to dictate discharge summary for this account. I was not involved in the patient's management. Dina Alejo NP March 14, 2019 09:00
== END 2019-03-11 13:30 | disposition home or self-care (01) | DRG 720 ==
LOC: EMR 18:05 → 2E 19:16 → EDBEDREQ 20:43 → 2E 21:33
PROC: 30233N1 Transfusion of Nonautologous Red Blood Cells into Peripheral Vein, Percutaneous Approach (ICD-10-PCS; principal; 2019-03-09)
DX: A41.9 Sepsis, unspecified organism (principal); C55 Malignant neoplasm of uterus, part unspecified; F11.20 Opioid dependence, uncomplicated; N39.0 Urinary tract infection, site not specified; B96.20 Unspecified Escherichia coli [E. coli] as the cause of diseases classified elsewhere; D63.8 Anemia in other chronic diseases classified elsewhere; E86.0 Dehydration; R10.2 Pelvic and perineal pain; F32.9 Major depressive disorder, single episode, unspecified; I10 Essential (primary) hypertension; B96.4 Proteus (mirabilis) (morganii) as the cause of diseases classified elsewhere; J45.909 Unspecified asthma, uncomplicated; Z86.718 Personal history of other venous thrombosis and embolism; R19.7 Diarrhea, unspecified; F41.9 Anxiety disorder, unspecified; Z88.1 Allergy status to other antibiotic agents; Z90.710 Acquired absence of both cervix and uterus; K21.9 Gastro-esophageal reflux disease without esophagitis
CPT/HCPCS: 36415; 71045; 74177; 80053; 81003; 82270; 82378; 82607; 82728; 82746; 83540; 83550; 83605; 83690; 84439; 84443; 85007; 85025; 85044; 85610; 85730; 86850; 86900; 86901; 86920; 87040; 87086; 87181; 87324; 93005; 93970; 94640; 94664; 96361; 96365; 96375; 99285; J2405; J7620

== ENCOUNTER 2019-06-13 20:36 | Emergency (ER) | payer MEDICAID ==
[~2019-06-13] VITALS: Ht 172.7 cm; Wt 77.1 kg
[~2019-06-13 20:36] MED LIST changes: +ALPRAZOLAM1 MG ORAL; +BUPROPION HCL100 MG ORAL; +FERROUS SULFAT325 MG ORAL; +GABAPENTIN100 MG ORAL; +LORAZEPAM2 MG ORAL; +NORCO 10-325 T1 EACH ORAL; +RESTORIL15 MG ORAL; +SPIRIVA18 MCG INH; +SYMBICORT 16010.2 G1 IH
[2019-06-13 20:45] VITALS: BP 168/77
--- NOTE | 2019-06-13 20:45 | NUR ---
ED Nurse Note: patient ambulated to ed with walker c/o wound care for bilateral nephrostomy tubes. last wound care done 1 week ago. pt reports nausea vomitting and anxiety .
[2019-06-13] MEDS ORDERED: AMLODIPINE BES2.5 MG ORAL (20:47)
[2019-06-13] MEDS ORDERED: LABETALOL HCL100 MG ORAL (20:47)
--- NOTE | 2019-06-13 21:00 | NUR ---
ED Nurse Note: pt has a upper right port-a-cath
--- NOTE | 2019-06-13 21:18 | Emergency Room Report ---
History of Present Illness General Chief Complaint: General Complaint Source: Patient Present Illness HPI Patient presents with complaints of concern for ongoing urine infection she reports that she was diagnosed with Pseudomonas in the urine She is taking Cipro currently however is not sure if this is Sensitive to the medication Patient has uterine carcinoma and required bilateral nephrostomy tubes patient reports that the nephrostomy tubes had to be readjusted 3 weeks ago at [facility] Denies any chest pain patient does report episode of vomiting denies any diarrhea Patient also has heme oncologist that she is following with closely Who recently placed her on the Cipro Allergies: Coded Allergies: AMOXICILLIN (Verified Allergy, Unknown, 06/13/19) CLAVULANIC ACID (Verified Allergy, Unknown, 06/13/19) LEVOFLOXACIN (Verified Allergy, Unknown, 05/01/17) Patient History Past Medical History: see triage record Reviewed Nursing Documentation: PMH: Agreed; PSxH: Agreed Nursing Documentation-PMH Past Medical History: No History, Except For Hx Cardiac Problems: Yes Hx Hypertension: Yes Hx Asthma: Yes Hx Cancer: Yes Hx Gastrointestinal Problems: No Hx Neurological Problems: No Review of Systems All Other Systems: negative except mentioned in HPI Physical Exam Vital Signs Date Time Temp Pulse Resp B/P (MAP) Pulse Ox O2 Delivery O2 Flow Rate FiO2 06/13/19 20:39 97.9 72 14 168/77 (107) 97 Room Air Sp02 EP Interpretation: reviewed, normal General Appearance: well appearing, no apparent distress Head: normocephalic, atraumatic Eyes: bilateral eye PERRL, bilateral eye EOMI ENT: hearing grossly normal, normal pharynx Neck: supple Respiratory: lungs clear, no respiratory distress, no retraction Cardiovascular #1: regular rate, rhythm Gastrointestinal: non tender, soft Genitourinary: other - Bilateral nephrostomy tubes in place no erythema Musculoskeletal: back normal Neurologic: alert, oriented x3 Skin: no rash Lymphatic: normal inspection Medical Decision Making Diagnostic Impression: Primary Impression: UTI (urinary tract infection) ER Course Patient has a complex medical history given the presentation and complaints extensive work-up was initiated Patient's urine sample does show some infectious pathology Initial CBC showed significantly low hemoglobin count this did not appear to correlate clinically and therefore was repeated Which shows more improved findings chemistry also did not appear appropriate and was repeated and showed improved findings I discussed with the patient regarding further inpatient versus outpatient care she reports that she has a follow-up tomorrow with her primary physician and heme oncologist Patient is afebrile hemodynamically stable has just started Cipro And has had outpatient work-up Showing Pseudomonas in the urine patient will continue this outpatient work-up Did not want to be admitted to the hospital and will follow closely Labs Test 06/13/19 21:30 06/13/19 21:40 06/13/19 22:06 06/13/19 23:05 Urine Color Pale yellow Urine Appearance Clear Urine pH 6 (4.5-8.0) Urine Specific [place] 1.015 (1.005-1.035) Urine Protein 3+ (NEGATIVE) Urine Glucose (UA) Negative (NEGATIVE) Urine Ketones Negative (NEGATIVE) Urine Blood 3+ (NEGATIVE) Urine Nitrite Positive (NEGATIVE) Urine Bilirubin Negative (NEGATIVE) Urine Urobilinogen Normal MG/DL (0.0-1.0) Urine Leukocyte Esterase 3+ (NEGATIVE) Urine RBC 2-4 /HPF (0 - 2) Urine WBC 5-10 /HPF (0 - 2) Urine Squamous Epithelial Cells Few /LPF (NONE/OCC) Urine Bacteria Few /HPF (NONE) Sodium Level 159 MMOL/L (136-145) 139 MMOL/L (136-145) Potassium Level 3.4 MMOL/L (3.5-5.1) 3.6 MMOL/L (3.5-5.1) Chloride Level 86 MMOL/L (98-107) 103 MMOL/L (98-107) Carbon Dioxide Level 18 MMOL/L (21-32) 28 MMOL/L (21-32) Anion Gap 55 mmol/L (5-15) 8 mmol/L (5-15) Blood Urea Nitrogen 7 mg/dL (7-18) 8 mg/dL (7-18) Creatinine 0.8 MG/DL (0.55-1.30) 0.9 MG/DL (0.55-1.30) Estimat Glomerular Filtration Rate > 60 mL/min (>60) > 60 mL/min (>60) Glucose Level 75 MG/DL (74-106) 122 MG/DL (74-106) Calcium Level 7.4 MG/DL (8.5-10.1) 8.8 MG/DL (8.5-10.1) Total Bilirubin 0.3 MG/DL (0.2-1.0) 0.3 MG/DL (0.2-1.0) Aspartate Amino Transf (AST/SGOT) 16 U/L (15-37) 16 U/L (15-37) Alanine Aminotransferase (ALT/SGPT) 9 U/L (12-78) 12 U/L (12-78) Alkaline Phosphatase 53 U/L (46-116) 59 U/L (46-116) Total Creatine Kinase 151 U/L (26-308) Creatine Kinase MB 1.1 NG/ML (0.0-3.6) Creatine Kinase MB Relative Index 0.7 Total Protein 7.0 G/DL (6.4-8.2) 7.6 G/DL (6.4-8.2) Albumin 2.4 G/DL (3.4-5.0) 2.6 G/DL (3.4-5.0) Globulin 4.6 g/dL 5.0 g/dL Albumin/Globulin Ratio 0.5 (1.0-2.7) 0.5 (1.0-2.7) White Blood Count 11.0 K/UL (4.8-10.8) 10.5 K/UL (4.8-10.8) Red Blood Count 2.24 M/UL (4.20-5.40) 3.43 M/UL (4.20-5.40) Hemoglobin 5.8 G/DL (12.0-16.0) 8.9 G/DL (12.0-16.0) Hematocrit 18.1 % (37.0-47.0) 28.5 % (37.0-47.0) Mean Corpuscular Volume 81 FL (80-99) 83 FL (80-99) Mean Corpuscular Hemoglobin 26.0 PG (27.0-31.0) 25.9 PG (27.0-31.0) Mean Corpuscular Hemoglobin Concent 32.2 G/DL (32.0-36.0) 31.1 G/DL (32.0-36.0) Red Cell Distribution Width 14.9 % (11.6-14.8) 15.6 % (11.6-14.8) Platelet Count 432 K/UL (150-450) 444 K/UL (150-450) Mean Platelet Volume 5.5 FL (6.5-10.1) 5.6 FL (6.5-10.1) Neutrophils (%) (Auto) % (45.0-75.0) 80.8 % (45.0-75.0) Lymphocytes (%) (Auto) % (20.0-45.0) 12.8 % (20.0-45.0) Monocytes (%) (Auto) % (1.0-10.0) 4.0 % (1.0-10.0) Eosinophils (%) (Auto) % (0.0-3.0) 1.7 % (0.0-3.0) Basophils (%) (Auto) % (0.0-2.0) 0.7 % (0.0-2.0) Differential Total Cells Counted 100 Neutrophils % (Manual) 79 % (45-75) Lymphocytes % (Manual) 13 % (20-45) Monocytes % (Manual) 4 % (1-10) Eosinophils % (Manual) 3 % (0-3) Basophils % (Manual) 1 % (0-2) Band Neutrophils 0 % (0-8) Platelet Estimate Adequate Platelet Morphology Normal Hypochromasia 3+ Anisocytosis 3+ Lactic Acid Level 0.50 mmol/L (0.4-2.0) Last Vital Signs Date Time Temp Pulse Resp B/P (MAP) Pulse Ox O2 Delivery O2 Flow Rate FiO2 06/13/19 20:45 97.9 72 14 168/77 97 Room Air Status: improved Disposition: HOME, SELF-CARE Condition: Improved Additional Instructions: Patient is provided with the discharge instructions notified to follow up with primary doctor in the next 2-3 days otherwise return to the er with any worsening symptoms. Please note that this report is being documented using [employer] technology. This can lead to erroneous entry secondary to incorrect interpretation by the dictating instrument. Alber Rodriguez DO Jun 13, 2019 21:18
[2019-06-13 21:53] LABS: APPEARANCE,URINE CLEAR; BILIRUBIN, URINE NEGATIVE (NEGATIVE); COLOR,URINE PALE YELLOW; GLUCOSE, URINE (UA) NEGATIVE (NEGATIVE); KETONES,URINE NEGATIVE (NEGATIVE); LEUKOCYTE ESTERASE ,URINE 3+ (NEGATIVE); NITRITE,URINE POSITIVE (NEGATIVE); PH,URINE 6 (4.5-8.0); PROTEIN,URINE 3+ (NEGATIVE); UROBILINOGEN,URINE NORMAL MG/DL (0.0-1.0)
[2019-06-13 22:30] VITALS: BP 157/71
[2019-06-13 22:36] LABS: ANION GAP 55 mmol/L (5-15); BLOOD UREA NITROGEN 7 mg/dL (7-18); CALCIUM 7.4 MG/DL (8.5-10.1); CARBON DIOXIDE 18 MMOL/L (21-32); CHLORIDE 86 MMOL/L (98-107); CREATININE 0.8 MG/DL (0.55-1.30); POTASSIUM 3.4 MMOL/L (3.5-5.1); SODIUM 159 MMOL/L (136-145)
[2019-06-13 22:43] LABS: HEMATOCRIT 18.1 % (37.0-47.0); MEAN CORPUSCULAR VOLUME 81 FL (80-99); PLATELET COUNT 432 K/UL (150-450); RED BLOOD COUNT 2.24 M/UL (4.20-5.40); RED CELL DISTRIBUTION WIDTH 14.9 % (11.6-14.8)
[2019-06-13] MEDS ORDERED: Clindamycin 600mg 50 ML IVPB ONE (22:45)
[2019-06-13 22:51] LABS: ALANINE AMINOTRANSFERASE 9 U/L (12-78); ALBUMIN 2.4 G/DL (3.4-5.0); ALBUMIN/GLOBULIN RATIO 0.5 (1.0-2.7); ALKALINE PHOSPHATASE 53 U/L (46-116); ASPARTATE AMINO TRANSFERASE 16 U/L (15-37); BILIRUBIN,TOTAL 0.3 MG/DL (0.2-1.0); CKMB 1.1 NG/ML (0.0-3.6); CREATINE KINASE 151 U/L (26-308)
[2019-06-13 22:53] LABS: HEMOGLOBIN 5.8 G/DL (12.0-16.0)
--- NOTE | 2019-06-13 23:06 | NUR ---
ED Nurse Note: repeat cbc/cmp sent to lab
[2019-06-13 23:20] LABS: BASOPHILS % (AUTO) 0.7 % (0.0-2.0); EOSINOPHILS % (AUTO) 1.7 % (0.0-3.0); HEMATOCRIT 28.5 % (37.0-47.0); HEMOGLOBIN 8.9 G/DL (12.0-16.0); LYMPHOCYTES % (AUTO) 12.8 % (20.0-45.0); MEAN CORPUSCULAR VOLUME 83 FL (80-99); NEUTROPHILS % (AUTO) 80.8 % (45.0-75.0); PLATELET COUNT 444 K/UL (150-450); RED BLOOD COUNT 3.43 M/UL (4.20-5.40); RED CELL DISTRIBUTION WIDTH 15.6 % (11.6-14.8); WHITE BLOOD COUNT 10.5 K/UL (4.8-10.8)
[2019-06-13 23:36] LABS: ANION GAP 8 mmol/L (5-15); BLOOD UREA NITROGEN 8 mg/dL (7-18); CALCIUM 8.8 MG/DL (8.5-10.1); CARBON DIOXIDE 28 MMOL/L (21-32); CHLORIDE 103 MMOL/L (98-107); CREATININE 0.9 MG/DL (0.55-1.30); POTASSIUM 3.6 MMOL/L (3.5-5.1); SODIUM 139 MMOL/L (136-145)
[2019-06-13 23:41] LABS: ALANINE AMINOTRANSFERASE 12 U/L (12-78); ALBUMIN 2.6 G/DL (3.4-5.0); ALBUMIN/GLOBULIN RATIO 0.5 (1.0-2.7); ALKALINE PHOSPHATASE 59 U/L (46-116); ASPARTATE AMINO TRANSFERASE 16 U/L (15-37); BILIRUBIN,TOTAL 0.3 MG/DL (0.2-1.0)
--- NOTE | 2019-06-13 23:50 | NUR ---
ED Nurse Note: CHANGED PT NEPHROSTOMY DRESSING
--- NOTE | 2019-06-14 00:25 | NUR ---
ER DISCHARGE NOTE: Patient is cleared to be discharged per ERMD, pt is aox4, on room air, with stable vital signs. pt was given dc and prescription instructions, pt was able to verbalize understanding, pt id band and port-a-cath removed without complications. pt is able to ambulate with steady gait. pt took all belongings. accompanied by sister rozina
[2019-06-14 00:29] VITALS: BP 152/68
== END 2019-06-14 00:29 | disposition home or self-care (01) ==
LOC: EMR 21:20
DX: N39.0 Urinary tract infection, site not specified (principal); Z88.0 Allergy status to penicillin; I10 Essential (primary) hypertension; Z85.42 Personal history of malignant neoplasm of other parts of uterus
CPT/HCPCS: 36415; 80053; 81003; 82550; 82553; 83605; 85007; 85025; 87040; 96365; 99284; S0077

== ENCOUNTER 2019-06-21 22:06 | Emergency (ER) | payer MEDICAID ==
[~2019-06-21] VITALS: Ht 172.7 cm; Wt 80.7 kg
[~2019-06-21 22:06] MED LIST changes: +AMLODIPINE BES2.5 MG ORAL; +LABETALOL HCL100 MG ORAL
[2019-06-21 22:35] VITALS: BP 132/78
--- NOTE | 2019-06-21 22:37 | Emergency Room Report ---
History of Present Illness General Chief Complaint: Wound Recheck/Suture Removal Source: Patient Present Illness HPI This is 59-year-old female with history of bilateral nephrostomy tube placed. She came in to have the dressing change. Last time was changed was 4 days ago. She could not reach to that area. She does not have home health. She denies any trauma. No fever chills but no nausea no vomiting. No drainage. Allergies: Coded Allergies: AMOXICILLIN (Verified Allergy, Unknown, 06/13/19) CLAVULANIC ACID (Verified Allergy, Unknown, 06/13/19) LEVOFLOXACIN (Verified Allergy, Unknown, 05/01/17) Patient History Past Medical History: see triage record, old chart reviewed Past Surgical History: none Pertinent Family History: none Social History: Denies: smoking Last Menstrual Period: na Now: No Immunizations: UTD Reviewed Nursing Documentation: PMH: Agreed; PSxH: Agreed Nursing Documentation-PMH Hx Cardiac Problems: Yes Hx Hypertension: Yes Hx Asthma: Yes Hx Cancer: Yes Hx Gastrointestinal Problems: No Hx Neurological Problems: No Review of Systems Eye: Denies: eye pain, blurred vision ENT: Denies: ear pain, nose congestion, throat swelling Respiratory: Denies: cough, shortness of breath Cardiovascular: Denies: chest pain, palpitations Gastrointestinal: Denies: abdominal pain, diarrhea, nausea, vomiting Musculoskeletal: Denies: back pain, joint pain Skin: Denies: rash Neurological: Denies: headache, numbness Endocrine: Denies: increased thirst, increased urine Hematologic/Lymphatic: Denies: easy bruising All Other Systems: negative except mentioned in HPI Physical Exam Vital Signs Date Time Temp Pulse Resp B/P (MAP) Pulse Ox O2 Delivery O2 Flow Rate FiO2 06/21/19 22:22 98.1 89 16 158/86 (110) 98 Room Air Vitals high blood pressure Sp02 EP Interpretation: reviewed, normal General Appearance: well appearing, no apparent distress, alert Head: normocephalic, atraumatic Eyes: bilateral eye PERRL, bilateral eye EOMI ENT: hearing grossly normal, normal pharynx Neck: full range of motion, supple, no meningismus Respiratory: chest non-tender, lungs clear, normal breath sounds Cardiovascular #1: regular rate, rhythm, no murmur Gastrointestinal: normal bowel sounds, non tender, no mass, no organomegaly, no bruit, non-distended Musculoskeletal: back normal, normal range of motion, other - Nephrostomy tube sites are clean. Dressing looks very clean. No redness. No drainage. Neurologic: alert, oriented x3 Psychiatric: mood/affect normal Medical Decision Making Diagnostic Impression: Primary Impression: Encounter for wound re-check ER Course Seen here for wound check and dressing change. Area looks clean. No evidence of infection. Will discharge home. Last Vital Signs Date Time Temp Pulse Resp B/P (MAP) Pulse Ox O2 Delivery O2 Flow Rate FiO2 06/21/19 22:22 98.1 89 16 158/86 (110) 98 Room Air Status: improved Disposition: HOME, SELF-CARE Condition: Stable Patient Instructions: Wound Check Additional Instructions: Follow-up with your doctor in 7 days. Return if worse. Ger White MD Jun 21, 2019 22:37
[2019-06-21 23:15] VITALS: BP 158/86
== END 2019-06-21 22:35 | disposition home or self-care (01) ==
LOC: EMR 22:35
DX: Z43.6 Encounter for attention to other artificial openings of urinary tract (principal); Z88.1 Allergy status to other antibiotic agents; Z88.8 Allergy status to other drugs, medicaments and biological substances; I10 Essential (primary) hypertension; J45.909 Unspecified asthma, uncomplicated; Z85.9 Personal history of malignant neoplasm, unspecified
CPT/HCPCS: 99282

== ENCOUNTER 2019-07-05 10:42 | Emergency (ER) | payer MEDICAID ==
[~2019-07-05] VITALS: Ht 172.7 cm; Wt 80.7 kg
[2019-07-05 11:04] VITALS: BP 132/66
[2019-07-05] MEDS ORDERED: BACITRACIN1 EACH TOPIC (11:38)
[2019-07-05] MEDS ORDERED: BENADRYL25 MG ORAL (11:38)
[2019-07-05 11:45] VITALS: BP 132/66
[2019-07-05] MEDS ORDERED: Neosporin Oint Ud Pkt TOPIC ONE (11:45)
--- NOTE | 2019-07-05 13:08 | Emergency Room Report ---
History of Present Illness General Chief Complaint: Skin Rash/Abscess Source: Patient Present Illness HPI Vision presents with complaints of insect bite to the right dorsal foot she believes this happened last night upon awaking there was some increased discomfort to that region patient reports putting alcohol and peroxide She noticed some minimal swelling in that area and presents for further evaluation Denies any fevers denies any chest pain or shortness of breath patient has a complex past medical history with Uterine carcinoma and mass with bilateral nephrostomy tubes Patient reports seeing different spiders at her living facility denies any abdominal cramping Allergies: Coded Allergies: AMOXICILLIN (Verified Allergy, Unknown, 06/13/19) CLAVULANIC ACID (Verified Allergy, Unknown, 06/13/19) LEVOFLOXACIN (Verified Allergy, Unknown, 05/01/17) Patient History Past Medical History: see triage record Reviewed Nursing Documentation: PMH: Agreed; PSxH: Agreed Nursing Documentation-PMH Past Medical History: No History, Except For Hx Cardiac Problems: Yes Hx Hypertension: Yes Hx Asthma: Yes Hx Cancer: Yes - uterine, hysterectomy Hx Gastrointestinal Problems: No Hx Neurological Problems: No Review of Systems All Other Systems: negative except mentioned in HPI Physical Exam Vital Signs Date Time Temp Pulse Resp B/P (MAP) Pulse Ox O2 Delivery O2 Flow Rate FiO2 07/05/19 10:46 97.9 84 17 132/66 (88) 99 Room Air Sp02 EP Interpretation: reviewed, normal General Appearance: well appearing, no apparent distress Head: normocephalic, atraumatic Eyes: bilateral eye PERRL, bilateral eye EOMI ENT: normal pharynx, no angioedema Neck: supple Cardiovascular #1: regular rate, rhythm Musculoskeletal: normal inspection Neurologic: alert, oriented x3, responsive Psychiatric: normal inspection Skin: other - Area of small scab formation left dorsal foot appears to be likely in line with likely insect bite, mild surrounding reactive changes no fluctuance no erythema Lymphatic: no adenopathy Medical Decision Making Diagnostic Impression: Primary Impression: insect bite ER Course Area in question appears to be likely consistent with insect bite there is a local reaction I do not suspect any obvious cellulitis Patient does not appear septic or toxic and will have initial conservative outpatient trial Last Vital Signs Date Time Temp Pulse Resp B/P (MAP) Pulse Ox O2 Delivery O2 Flow Rate FiO2 07/05/19 11:45 97.9 88 17 132/66 99 Room Air Status: improved Disposition: HOME, SELF-CARE Condition: Improved Scripts Diphenhydramine Hcl* (BENADRYL*) 25 Mg Capsule 25 MG ORAL Q12HR PRN for Itching for 7 Days, CAP Prov: Alber Rodriguez DO 07/05/19 Bacitracin (BACITRACIN*) 1 Each Packet 1 PACKET TOPIC BID for 10 Days, #30 PACKET 0 Refills Prov: Alber Rodriguez DO 07/05/19 Referrals: NON PHYSICIAN (PCP) Patient Instructions: Insect Bite, [id number] Additional Instructions: Patient is provided with the discharge instructions notified to follow up with primary doctor in the next 2-3 days otherwise return to the er with any worsening symptoms. Please note that this report is being documented using [employer] technology. This can lead to erroneous entry secondary to incorrect interpretation by the dictating instrument. Alber Rodriguez DO Jul 05, 2019 13:08
== END 2019-07-05 11:45 | disposition home or self-care (01) ==
LOC: EMR 11:10
DX: S90.861A Insect bite (nonvenomous), right foot, initial encounter (principal); Z88.1 Allergy status to other antibiotic agents; I10 Essential (primary) hypertension; J45.909 Unspecified asthma, uncomplicated; Z90.710 Acquired absence of both cervix and uterus; Z85.42 Personal history of malignant neoplasm of other parts of uterus; W57.XXXA Bitten or stung by nonvenomous insect and other nonvenomous arthropods, initial encounter; Y92.9 Unspecified place or not applicable
CPT/HCPCS: 99282

== ENCOUNTER 2019-07-23 17:00 | Emergency (ER) | payer MEDICAID ==
[~2019-07-23] VITALS: Ht 172.7 cm; Wt 90.7 kg
[~2019-07-23 17:00] MED LIST changes: +BACITRACIN1 EACH TOPIC; +BENADRYL25 MG ORAL
--- NOTE | 2019-07-23 17:15 | NUR ---
ED Nurse Note: ambulated in to ER from home. Per pt, she had nephrostomy catheter surgury in May and was not able to get dressing changed x2days. NINA Low and RN at bedside, no s/s of infection or inflammation noted.
[2019-07-23 17:20] VITALS: BP 138/76
[2019-07-23] MEDS ORDERED: Tylenol #3 tab (300mg/30mg) ORAL ONE (17:30)
--- NOTE | 2019-07-23 17:52 | Emergency Room Report ---
History of Present Illness General Chief Complaint: Wound Recheck/Suture Removal Source: Medical Record Present Illness HPI 59-year-old female with history of recent renal surgery and nephrostomy tube placement in May 2019 here requesting dressing change to the site of the nephrostomy tube. Patient reports that she has a in-home nurse that comes in every other day to change the dressing however has not come to change in the past 2 days and patient is afraid of infection. Denies fever and chills. Reports that she takes hydrocodone at home as needed for pain as well as regular Tylenol. Patient is rating pain 10 out of 10 and is concerned about misplacement of the chills and infection. Reports that she has an appointment with her surgeon this coming Thursday. Denies recent fall and injury. Denies chest pain, shortness of breath, palpitation, and all other associated symptoms. Upon visualization of the nephrostomy tube no signs of infection were noted and nephrostomy tubes were in place. I change the dressing and patient felt comfortable after. Allergies: Coded Allergies: AMOXICILLIN (Verified Allergy, Unknown, 06/13/19) CLAVULANIC ACID (Verified Allergy, Unknown, 06/13/19) LEVOFLOXACIN (Verified Allergy, Unknown, 05/01/17) Patient History Past Medical History: see triage record Past Surgical History: unable to obtain Pertinent Family History: none Now: No Immunizations: UTD Reviewed Nursing Documentation: PMH: Agreed; PSxH: Agreed Nursing Documentation-PMH Hx Cardiac Problems: Yes Hx Hypertension: Yes Hx Asthma: Yes Hx Cancer: Yes - uterine, hysterectomy Hx Gastrointestinal Problems: No Hx Neurological Problems: No Review of Systems All Other Systems: negative except mentioned in HPI Physical Exam Vital Signs Date Time Temp Pulse Resp B/P (MAP) Pulse Ox O2 Delivery O2 Flow Rate FiO2 07/23/19 17:14 98.1 86 19 138/76 (96) 97 Sp02 EP Interpretation: reviewed, normal General Appearance: no apparent distress, alert, GCS 15, non-toxic Head: normocephalic, atraumatic Eyes: bilateral eye normal inspection, bilateral eye PERRL ENT: hearing grossly normal, normal pharynx, no angioedema, normal voice Neck: full range of motion, supple/symm/no masses Respiratory: chest non-tender, lungs clear, normal breath sounds, no rhonchi, speaking full sentences Cardiovascular #1: regular rate, rhythm, no edema, no murmur Gastrointestinal: normal bowel sounds, non tender, soft, non-distended, no guarding, no rebound Genitourinary: normal inspection, no CVA tenderness Musculoskeletal: back normal, gait/station normal, normal range of motion, non- tender, no calf tenderness Neurologic: alert, oriented x3, responsive, motor strength/tone normal, sensory intact, speech normal Skin: other - Nephrostomy tube placed and with dressing in place noninfected Lymphatic: no adenopathy Medical Decision Making PA Attestation Diagnosis and treatment plans were reviewed and discussed with my supervising physician Dr. Bustillo Diagnostic Impression: Primary Impression: Encounter for postoperative wound check ER Course 59-year-old female with history of recent renal surgery and nephrostomy tube placement in May 2019 here requesting dressing change to the site of the nephrostomy tube. Patient reports that she has a in-home nurse that comes in every other day to change the dressing however has not come to change in the past 2 days and patient is afraid of infection. Denies fever and chills. Reports that she takes hydrocodone at home as needed for pain as well as regular Tylenol. Patient is rating pain 10 out of 10 and is concerned about misplacement of the chills and infection. Reports that she has an appointment with her surgeon this coming Thursday. Denies recent fall and injury. Denies chest pain, shortness of breath, palpitation, and all other associated symptoms. Upon visualization of the nephrostomy tube no signs of infection were noted and nephrostomy tubes were in place. I change the dressing and patient felt comfortable after. Ddx considered but are not limited to : Infected wound, noninfected wound, encounter for postoperative wound check without complication Vital signs: are WNL, pt. is afebrile H&PE are most consistent with: Encounter for postoperative wound check without complication ORDERS: None ED INTERVENTIONS: Wound dressing and change, Tylenol 3 DISCHARGE: At this time pt. is stable for d/c to home. Will provide printed patient care instructions, and any necessary prescriptions. Care plan and follow up instructions have been discussed with the patient prior to discharge. I advised the patient to follow-up with her surgeon as well as have the in-home nurse recheck the bandage in 1 to 2 days patient was stable at time of discharge and walked out of here comfortably. Last Vital Signs Date Time Temp Pulse Resp B/P (MAP) Pulse Ox O2 Delivery O2 Flow Rate FiO2 07/23/19 17:14 98.1 86 19 138/76 (96) 97 Disposition: HOME, SELF-CARE Condition: Stable Referrals: NOT CHOSEN IPA/,REFERRING (PCP) Patient Instructions: Wound Check Additional Instructions: Make sure your home nurse changes the dressing in 2 to 3 days if worsening symptoms such as fever and chills return to the emergency room follow-up with your surgeon within the next 48 to 72 hours Devante Randhawa Jul 23, 2019 17:52
--- NOTE | 2019-07-23 17:56 | NUR ---
ER DISCHARGE NOTE: Dressing changed by NINA Low. Patient is cleared to be discharged per ERMD, pt is aox4, on room air, with stable vital signs. pt was given dc and prescription instructions, pt was able to verbalize understanding, pt id band removed without complications. pt is able to ambulate with steady gait. pt took all belongings.
[2019-07-23 18:00] VITALS: BP 138/76
== END 2019-07-23 18:00 | disposition home or self-care (01) ==
LOC: EMR 17:21
DX: Z48.01 Encounter for change or removal of surgical wound dressing (principal); Z88.0 Allergy status to penicillin; Z88.8 Allergy status to other drugs, medicaments and biological substances; I10 Essential (primary) hypertension; Z90.710 Acquired absence of both cervix and uterus; Z85.42 Personal history of malignant neoplasm of other parts of uterus
CPT/HCPCS: 99282

== ENCOUNTER 2019-09-12 13:24 | Emergency (ER) | payer MEDICAID ==
[~2019-09-12] VITALS: Ht 172.7 cm; Wt 80.7 kg
--- NOTE | 2019-09-12 13:40 | NUR ---
ED Nurse Note: patient walked into ED from home c/o allergic reaction 1 hour and 30 minutes prior to arrival to ED. patient reports he had swollen gums and swollen throat. patient is alert awake x4 ambulatory, breathing unlabored and even, placed on a air sampling and monitoring, patient placed on a gown. patient's sister at bedside.
[2019-09-12] MEDS ORDERED: EPINEPHrine 1mg/1ml Amp IM ONE (13:45)
[2019-09-12] MEDS ORDERED: DiphenhydrAMINE 50mg/ml Inj IVP ONE (13:45)
[2019-09-12] MEDS ORDERED: EPIPEN 2-P0.3 MG/0.3 IM (13:50)
--- NOTE | 2019-09-12 13:51 | Emergency Room Report ---
History of Present Illness General Chief Complaint: Allergic Reaction Source: Patient Present Illness HPI 59-year-old female presents with swelling of the mouth, difficulty swallowing 2 hour prior to arrival, patient was eating lunch not sure what she had an allergic reaction to, she states she had food at restaurant refer to nursing note for types of food, she endorsed some nausea no cp, she endorsed some mild shortness of breath, no wheezing. No known alleviating factors. Severity is moderate. She presents for evaluation Allergies: Coded Allergies: AMOXICILLIN (Verified Allergy, Unknown, 06/13/19) CLAVULANIC ACID (Verified Allergy, Unknown, 06/13/19) LEVOFLOXACIN (Verified Allergy, Unknown, 05/01/17) Patient History Past Medical History: see triage record Last Menstrual Period: n/a Reviewed Nursing Documentation: PMH: Agreed; PSxH: Agreed Nursing Documentation-PMH Past Medical History: No History, Except For Hx Cardiac Problems: Yes Hx Hypertension: Yes Hx Asthma: Yes Hx Cancer: Yes - uterine, hysterectomy Hx Gastrointestinal Problems: No Hx Neurological Problems: No Review of Systems All Other Systems: negative except mentioned in HPI Physical Exam Vital Signs Date Time Temp Pulse Resp B/P (MAP) Pulse Ox O2 Delivery O2 Flow Rate FiO2 09/12/19 13:30 98.8 100 18 146/74 (98) 98 Room Air Sp02 EP Interpretation: reviewed, normal General Appearance: well appearing, no apparent distress, alert Head: normocephalic, atraumatic Eyes: bilateral eye PERRL, bilateral eye EOMI ENT: uvula midline, moist mucus membranes, other - mild swelling of outer lips , no swelling of posterior pharynx Neck: supple, thyroid normal, supple/symm/no masses Respiratory: lungs clear, no respiratory distress, no retraction, no accessory muscle use, no wheezing Cardiovascular #1: normal peripheral pulses, regular rate, rhythm, no edema, no gallop, no murmur Gastrointestinal: non tender, soft, no guarding, no rebound Musculoskeletal: normal inspection Neurologic: alert, oriented x3 Psychiatric: mood/affect normal Skin: no rash, warm/dry Medical Decision Making Diagnostic Impression: Primary Impression: Allergic reaction Qualified Codes: T78.40XA - Allergy, unspecified, initial encounter ER Course 59-year-old female presents with most likely anaphylaxis/allergic reaction, patient without wheezing, patient with mild swelling of the lips Posterior pharynx unremarkable No wheezing on exam, will provide patient with epinephrine, Pepcid, steroids and fluids Patient was observed with an unremarkable observation. Cures checked hx of cancer will provide short term script for norco Disposition home with return precautions Last Vital Signs Date Time Temp Pulse Resp B/P (MAP) Pulse Ox O2 Delivery O2 Flow Rate FiO2 09/12/19 13:30 98.8 100 18 146/74 (98) 98 Room Air Disposition: HOME, SELF-CARE Condition: Stable Scripts Prednisone* (PREDNISONE*) 50 Mg Tablet 50 MG ORAL DAILY, #4 TAB 0 Refills Prov: Cyrus Bustillo MD 09/12/19 Hydrocodone Bit/Acetaminophen 10-325* (NORCO 10-325*) 1 Each Tablet 1 TAB ORAL Q8H PRN for For Pain, #12 TAB 0 Refills PRN PAIN Prov: Cyrus Bustillo MD 09/12/19 Epinephrine (Epipen 2-Dave) 0.3 Mg/0.3 Ml Auto.injct 0.3 MG IM ONCE PRN for anaphylaxis, #1 EA Prov: Cyrus Bustillo MD 09/12/19 [facility]: [facility] Patient Instructions: Anaphylactic Reaction, [id number] Additional Instructions: The patient was provided with discharge instructions, notified to follow-up with a primary care doctor and or specialist in the next 24-48 hours, and to return to the ED if they have worsening of their symptoms. Please note that this report is being documented using [employer] technology. This can lead to erroneous entry secondary to incorrect interpretation by the dictating instrument. Cyrus Bustillo MD Sep 12, 2019 13:51
--- NOTE | 2019-09-12 14:10 | NUR ---
ED Nurse Note: per Dr. Bustillo it's ok to establish a line on the port-a-cath. patient consented as well, patient declined peripheral access. obtained access to port-a-cath using sterile techinique, patient tolerated without complication. vital signs stabble. sister at bedside.
[2019-09-12 14:42] VITALS: BP 142/75
[2019-09-12] MEDS ORDERED: PREDNISONE50 MG ORAL (14:59)
[2019-09-12] MEDS ORDERED: NORCO 10-325 T1 EACH ORAL (14:59)
[2019-09-12] MEDS ORDERED: HYDROcodone/Acetamin 10/325 tab ORAL ONE (15:00)
--- NOTE | 2019-09-12 15:00 | NUR ---
ED Nurse Note: bilateral nephrostomy tube dressings were changed as ordered by Dr. Bustillo. cleansed with normal saline soaked sterile gauze as patient's requested, cleansed with chloraprep as patient request, new set of sterile gauzed applied with tegaderm as requested by patient. patient tolerated it without complication. patient made aware that as RN cleans the wound, RN notied a small scant tear on the left nephrostomy site. Patient's sister witnessed it.
[2019-09-12 16:27] VITALS: BP 135/72
[2019-09-12] MEDS ORDERED: Heparin Sod 1000 units/ml 10ml INJ ONE (16:30)
[2019-09-12 16:41] VITALS: BP 135/72
--- NOTE | 2019-09-12 16:41 | NUR ---
ER DISCHARGE NOTE: Patient is cleared to be discharged per ERMD DR BURKETT, pt is aox4, on room air, with stable vital signs. pt was given dc and prescription instructions, pt was able to verbalize understanding, pt id band and portacath removed without complications. heparin flushed as ordered by DR Silvestre pt is able to ambulate with steady gait. pt took all belongings.
== END 2019-09-12 16:41 | disposition home or self-care (01) ==
LOC: EMR 15:24
DX: T78.40XA Allergy, unspecified, initial encounter (principal); X58.XXXA Exposure to other specified factors, initial encounter; Y92.9 Unspecified place or not applicable; Z88.8 Allergy status to other drugs, medicaments and biological substances; I10 Essential (primary) hypertension; Z85.42 Personal history of malignant neoplasm of other parts of uterus; Z90.710 Acquired absence of both cervix and uterus
CPT/HCPCS: 96361; 96372; 96374; 96375; J0171; J1200; J1644; J7512; J8540; S0028; Z7502; 99284; J7030

== ENCOUNTER 2019-10-15 20:08 | Emergency (ER) | payer MEDICAID ==
[~2019-10-15] VITALS: Ht 172.7 cm; Wt 77.1 kg
[~2019-10-15 20:08] MED LIST changes: +EPIPEN 2-P0.3 MG/0.3 IM; +PREDNISONE50 MG ORAL
[2019-10-15 20:20] VITALS: BP 113/60
--- NOTE | 2019-10-15 20:53 | NUR ---
ED Nurse Note: wound care performed. no discharge. no pain reported.
--- NOTE | 2019-10-15 21:03 | Emergency Room Report ---
History of Present Illness General Chief Complaint: Wound Recheck/Suture Removal Source: Patient, Family Member Present Illness HPI Patient presents for dressing change of her bilateral nephrostomy tubes. 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 She is on palliative care at this time. She denies fevers or chills. The urine is clear. She denies abdominal pain, flank pain, nausea, vomiting or diarrhea. The patient is losing weight. (In 2017 she had an estimated weight of 93 kg.) She is having a difficult time with her treatment as she feels that she is being shuttled between specialists. She is somewhat depressed about her diagnosis. No sore throat, chest pain, palpitations, shortness of breath, joint pain, rashes, dizziness, headache. Allergies: Coded Allergies: AMOXICILLIN (Verified Allergy, Unknown, 06/13/19) CLAVULANIC ACID (Verified Allergy, Unknown, 06/13/19) LEVOFLOXACIN (Verified Allergy, Unknown, 05/01/17) Patient History Past Medical History: see triage record Past Surgical History: hysterectomy, other - Bilateral nephrostomy tubes Social History: Denies: smoking Social History Narrative With her sister Last Menstrual Period: na Reviewed Nursing Documentation: PMH: Agreed; PSxH: Agreed Nursing Documentation-PMH Hx Cardiac Problems: Yes Hx Hypertension: Yes Hx Asthma: Yes Hx Cancer: Yes - uterine, hysterectomy Hx Gastrointestinal Problems: No Hx Neurological Problems: No Review of Systems All Other Systems: negative except mentioned in HPI Physical Exam Vital Signs Date Time Temp Pulse Resp B/P (MAP) Pulse Ox O2 Delivery O2 Flow Rate FiO2 10/15/19 20:14 98.4 96 16 113/60 (77) 98 Room Air Sp02 EP Interpretation: reviewed, normal General Appearance: well appearing, no apparent distress, GCS 15, non-toxic Head: normocephalic, atraumatic Eyes: bilateral eye normal inspection, bilateral eye PERRL, bilateral eye EOMI ENT: moist mucus membranes Neck: full range of motion, supple Respiratory: lungs clear, normal breath sounds Cardiovascular #1: regular rate, rhythm Cardiovascular #2: 2+ radial (R) Gastrointestinal: normal inspection, non tender, soft Genitourinary: no CVA tenderness, other - Bilateral nephrostomy tubes Musculoskeletal: gait/station normal Neurologic: alert, normal inspection Psychiatric: depressed affect Skin: normal color, no rash, other - No drainage or erythema at nephrostomy tube sites Medical Decision Making Diagnostic Impression: Primary Impression: nephrostmy tubes evaluation Additional Impressions: Uterine sarcoma Weight loss ER Course Patient with uterine sarcoma with bilateral nephrostomies for dressing change. There is no evidence of infection at this time. The dressings are changed and no further evaluation is necessary. Discussed the need for further outpatient observation and treatment. Discussed the need for nutritional consult regarding weight loss. Patient stable for outpatient observation and treatment. Last Vital Signs Date Time Temp Pulse Resp B/P (MAP) Pulse Ox O2 Delivery O2 Flow Rate FiO2 10/15/19 21:10 98.2 86 18 110/65 99 Room Air Status: improved Disposition: HOME, SELF-CARE Condition: Stable Scripts Nutritional Supplement (ENSURE) 113 Gm Pudding 113 GM PO BID, #100 PACK Prov: Gigi Bryant MD 10/15/19 Gigi Bryant MD Oct 15, 2019 21:03
[2019-10-15] MEDS ORDERED: ENSURE113 GM PO (21:06)
[2019-10-15 21:10] VITALS: BP 110/65
--- NOTE | 2019-10-15 21:10 | NUR ---
ER DISCHARGE NOTE: Pt is cleared for DC per ER provider, pt discharge and aftercare instructions provided w/ prescriptions, pt verbalized understanding. pt advised to follow up with pcp or return to ED if change in condition, pt verbalized understanding. Vital signs stable, ambulatory w/ steady gait, left w/ all belongings. ID band removed. Pt stable upon discharge.
== END 2019-10-15 21:10 | disposition home or self-care (01) ==
LOC: EMR 20:20
DX: Z43.6 Encounter for attention to other artificial openings of urinary tract (principal); C55 Malignant neoplasm of uterus, part unspecified; R63.4 Abnormal weight loss; Z68.25 Body mass index [BMI] 25.0-25.9, adult; Z88.0 Allergy status to penicillin; Z88.8 Allergy status to other drugs, medicaments and biological substances; I10 Essential (primary) hypertension; Z90.710 Acquired absence of both cervix and uterus
CPT/HCPCS: 99282

== ENCOUNTER 2019-11-09 10:22 | Inpatient (IN) | payer MEDICAID ==
[~2019-11-09] VITALS: Ht 172.7 cm; Wt 76.2 kg
[~2019-11-09 10:22] MED LIST changes: +ENSURE113 GM PO
[2019-11-09 10:35] VITALS: BP 123/70
--- NOTE | 2019-11-09 10:35 | NUR ---
ED Nurse Note: Pt ambulated into ED from home CO vaginal bleeding and pain at nephrostomy sites bilaterally. Pt reports vaginal bleeding began this morning at 0300, pt denies n/v, injury to area, abdominal pain. Pt reports that her hemoglobin will likely be low and that she was advised by another doctor to visit the ED. Pt vs in stable condition and resting in bed
--- NOTE | 2019-11-09 10:50 | NUR ---
ED Nurse Note: ERMD at bedside
--- NOTE | 2019-11-09 11:20 | NUR ---
ED Nurse Note: Hemoglobin lab returned 5.8. ERMD aware.
[2019-11-09 11:38] LABS: HEMATOCRIT 19.4 % (37.0-47.0); MEAN CORPUSCULAR VOLUME 73 FL (80-99); PLATELET COUNT 369 K/UL (150-450); RED BLOOD COUNT 2.67 M/UL (4.20-5.40); RED CELL DISTRIBUTION WIDTH 20.6 % (11.6-14.8); WHITE BLOOD COUNT 13.3 K/UL (4.8-10.8)
[2019-11-09 11:41] LABS: HEMOGLOBIN 5.8 G/DL (12.0-16.0)
[2019-11-09 11:59] LABS: ANION GAP 5 mmol/L (5-15); BLOOD UREA NITROGEN 18 mg/dL (7-18); CALCIUM 7.7 MG/DL (8.5-10.1); CARBON DIOXIDE 29 MMOL/L (21-32); CHLORIDE 106 MMOL/L (98-107); POTASSIUM 4.5 MMOL/L (3.5-5.1); SODIUM 140 MMOL/L (136-145)
[2019-11-09 12:04] LABS: ALANINE AMINOTRANSFERASE 14 U/L (12-78); ALBUMIN/GLOBULIN RATIO 0.3 (1.0-2.7); ALKALINE PHOSPHATASE 58 U/L (46-116); ASPARTATE AMINO TRANSFERASE 17 U/L (15-37); BILIRUBIN,TOTAL 0.3 MG/DL (0.2-1.0)
[2019-11-09 12:15] VITALS: BP 127/78
--- NOTE | 2019-11-09 13:00 | NUR ---
ED Nurse Note: Pt resting in bed, vs in stable condition, aao x 4.
[2019-11-09] MEDS ORDERED: Lidocaine HCl 2% Jelly 6ml Tube TOPIC ONE ×2 (13:49→14:00)
[2019-11-09 14:00] VITALS: BP 132/79
--- NOTE | 2019-11-09 14:00 | NUR ---
ED Nurse Note: Accessed port a cath on right shoulder to draw blood
[2019-11-09 15:00] VITALS: BP 118/53
--- NOTE | 2019-11-09 15:06 | NUR ---
ED Nurse Note: Report given to GIANNA Washburn on telemetry unit.
--- NOTE | 2019-11-09 15:07 | NUR ---
NURSE NOTES: Received report from ED nurse/ Mini, Awaiting on patient to be transferred to Tele floor.
--- NOTE | 2019-11-09 15:24 | NUR ---
ED Nurse Note: Pt transferred upstairs to telemetry unit with RN, VS in stable condition. Report given to GIANNA Washburn. Pt brought all belongings. Pt belongings list and med recon complete.
--- NOTE | 2019-11-09 15:35 | NUR ---
NURSE NOTES: Patient transferred from ED via gurney, Awake and alert, on room air, no acute distress/SOB noted. Patient has portha-cath on right subclavian intact, No infiltration or bleeding noted. Belonging check done with transferring nurse per protocol. personnel monitor placed. Patient has Bilateral Nephrostomy tube, site intact, no drainage noted. clean the site and Dressing changed. Sister at bed side. Bed in low position and locked, call light within reach, Bed alarm is on, side-rails up x2. Encouraged to use call light when needed. Will continue plan of care.
[2019-11-09 16:00] VITALS: BP 132/61
--- NOTE | 2019-11-09 16:17 | Emergency Room Report ---
History of Present Illness General Chief Complaint: General Complaint Source: Patient Present Illness HPI Patient has a history of uterine cancer and anemia related to bleeding from the tumor. She is getting all of her care at [facility]. She has planned radiation next week. She states she has been having ongoing vaginal bleeding and blood in her stool. She also is requesting a dressing change the location of her nephrostomy tubes. She denies recent illness. She denies fever chills. She has nausea or vomiting. She denies chest pain or shortness of breath. She has no other complaints. Allergies: Coded Allergies: AMOXICILLIN (Verified Allergy, Unknown, 06/13/19) CLAVULANIC ACID (Verified Allergy, Unknown, 06/13/19) LEVOFLOXACIN (Verified Allergy, Unknown, 05/01/17) Patient History Past Medical History: see triage record, HTN, asthma, other - Uterine ca w/ mets, anemia Past Surgical History: other - Nephrostomy tubes Social History: Denies: smoking, alcohol use, drug use Now: No Reviewed Nursing Documentation: PMH: Agreed; PSxH: Agreed Nursing Documentation-PMH Hx Cardiac Problems: Yes Hx Hypertension: Yes Hx Asthma: Yes Hx Cancer: Yes - uterine CA, hysterectomy Hx Gastrointestinal Problems: No Hx Neurological Problems: No Review of Systems All Other Systems: negative except mentioned in HPI Physical Exam Vital Signs Date Time Temp Pulse Resp B/P (MAP) Pulse Ox O2 Delivery O2 Flow Rate FiO2 11/09/19 10:28 98.2 113 22 120/67 (84) 98 Room Air Sp02 EP Interpretation: reviewed, normal General Appearance: no apparent distress, alert, GCS 15, non-toxic Head: normocephalic, atraumatic Eyes: bilateral eye normal inspection, bilateral eye PERRL, bilateral eye other - Pale conjunctiva ENT: hearing grossly normal, normal pharynx, no angioedema, normal voice, moist mucus membranes Neck: full range of motion, supple/symm/no masses Respiratory: chest non-tender, lungs clear, normal breath sounds, no respiratory distress, no retraction, no accessory muscle use, speaking full sentences Cardiovascular #1: no edema, tachycardia Gastrointestinal: normal bowel sounds, non tender, soft, non-distended, no guarding, no rebound Rectal: deferred Musculoskeletal: normal range of motion, gait/station normal, non-tender, other - Nephrostomy sites clean/dry/intact Neurologic: alert, motor strength/tone normal, oriented x3, sensory intact, responsive, speech normal Psychiatric: judgement/insight normal, memory normal, mood/affect normal, no suicidal/homicidal ideation Skin: pallor Medical Decision Making Diagnostic Impression: Primary Impression: ANEMIA ER Course This patient has profound anemia that is likely related to her known uterine tumor and ongoing bleeding. She just received a blood transfusion 2 weeks ago at [facility]. She will receive blood transfusion here. The emergency department is too busy to board the patient for blood transfusion and she is admitted for blood transfusion and further monitoring to assess for stabilization of her bleeding. I am concerned that the rapid decline in her hemoglobin after only 2 weeks of getting a blood transfusion. The 2 units of packed red blood cells were started in the emergency department and the patient was admitted for further evaluation and treatment. Laboratory Tests Test 11/09/19 11:20 White Blood Count 13.3 K/UL (4.8-10.8) H Red Blood Count 2.67 M/UL (4.20-5.40) L Hemoglobin 5.8 G/DL (12.0-16.0) *L Hematocrit 19.4 % (37.0-47.0) L Mean Corpuscular Volume 73 FL (80-99) L Mean Corpuscular Hemoglobin 21.8 PG (27.0-31.0) L Mean Corpuscular Hemoglobin Concent 30.0 G/DL (32.0-36.0) L Red Cell Distribution Width 20.6 % (11.6-14.8) H Platelet Count 369 K/UL (150-450) Mean Platelet Volume 6.3 FL (6.5-10.1) L Neutrophils (%) (Auto) % (45.0-75.0) Lymphocytes (%) (Auto) % (20.0-45.0) Monocytes (%) (Auto) % (1.0-10.0) Eosinophils (%) (Auto) % (0.0-3.0) Basophils (%) (Auto) % (0.0-2.0) Differential Total Cells Counted 100 Neutrophils % (Manual) 70 % (45-75) Lymphocytes % (Manual) 21 % (20-45) Monocytes % (Manual) 8 % (1-10) Eosinophils % (Manual) 1 % (0-3) Basophils % (Manual) 0 % (0-2) Band Neutrophils 0 % (0-8) Platelet Estimate Adequate Platelet Morphology Normal Polychromasia 2+ Hypochromasia 4+ Poikilocytosis 1+ Anisocytosis 2+ Microcytosis 2+ Prothrombin Time 11.1 SEC (9.30-11.50) Prothrombin Time INR 1.0 (0.9-1.1) PTT 26 SEC (23-33) Sodium Level 140 MMOL/L (136-145) Potassium Level 4.5 MMOL/L (3.5-5.1) Chloride Level 106 MMOL/L (98-107) Carbon Dioxide Level 29 MMOL/L (21-32) Anion Gap 5 mmol/L (5-15) Blood Urea Nitrogen 18 mg/dL (7-18) Creatinine 1.0 MG/DL (0.55-1.30) Estimate Glomerular Filtration Rate > 60 mL/min (>60) Glucose Level 89 MG/DL (74-106) Calcium Level 7.7 MG/DL (8.5-10.1) L Total Bilirubin 0.3 MG/DL (0.2-1.0) Aspartate Amino Transferase (AST) 17 U/L (15-37) Alanine Aminotransferase (ALT) 14 U/L (12-78) Alkaline Phosphatase 58 U/L (46-116) Total Protein 7.9 G/DL (6.4-8.2) Albumin 2.0 G/DL (3.4-5.0) L Globulin 5.9 g/dL Albumin/Globulin Ratio 0.3 (1.0-2.7) L Last Vital Signs Date Time Temp Pulse Resp B/P (MAP) Pulse Ox O2 Delivery O2 Flow Rate FiO2 11/09/19 15:24 98.2 104 18 120/69 98 Room Air Disposition: ADMITTED INPATIENT Condition: Serious Referrals: NON PHYSICIAN (PCP) Adia Wallace DO Nov 09, 2019 16:17
[2019-11-09] MEDS: D5NS 1,000 ML IV SCH (17:54)
--- NOTE | 2019-11-09 19:30 | NUR ---
NURSE NOTES: Received patient from GIANNA Negro, patient in stable condition, AOx4, denies pain at this time, blood transfusion running, no adverse reaction noted, bed low&locked, side rails upx3, call light within reach, sister at bedside, will continue to monitor and reassess
--- NOTE | 2019-11-09 19:30 | NUR ---
HAND-OFF: Report given to Nanette/RN, Patient is in stable condition. Endorsed plan of care.
[2019-11-09 20:00] VITALS: BP 138/66
--- NOTE | 2019-11-09 20:00 | NUR ---
NURSE NOTES: Patient is refusing clear diet, demanding regular food. MD aware. Chicken sandwich given
[2019-11-09] MEDS ORDERED: LORazepam Inj 2mg/ml 1ml IV PRN (23:15)
[2019-11-09] MEDS ORDERED: HYDROcodone/Acetamin 5/325 tab ORAL PRN (23:15)
[2019-11-09] MEDS ORDERED: Morphine Sulfate 2mg/ml Inj(IV/IM USE ONLY) IVP PRN (23:15)
[2019-11-09] MEDS ORDERED: Pantoprazole Inj IVP SCH (23:15)
[2019-11-10] VITALS: BP 130/64
[2019-11-10 03:28] VITALS: BP 141/74
--- NOTE | 2019-11-10 03:45 | History and Physical Report ---
DATE OF ADMISSION: 11/09/2019 REASON FOR ADMISSION: Severe anemia. HISTORY OF PRESENT ILLNESS: This is a 59-year-old female with uterine carcinoma and recurring bleeding, who has been getting transfusions every three to four weeks. She is under cancer therapy at [facility] and is undergoing radiation therapy next week. She notes that she has had increased bleeding from her vagina and stool. She denies any abdominal pain or shortness of breath. She noted severe fatigue and decreased exercise capacity consistent with prior episodes of anemia. Her last transfusions three weeks ago occurred when her hemoglobin had dropped to 6.4. In the emergency room today, her hemoglobin was 5.8. PAST MEDICAL HISTORY: 1. History of obstructive renal failure, status post nephrostomy tubes. 2. Hypertension. 3. Asthma. 4. Metastatic uterine cancer. 5. Anemia due to blood loss. 6. Status post hysterectomy. ALLERGIES: Amoxicillin and levofloxacin. FAMILY HISTORY: Noncontributory. SOCIAL HISTORY: Negative for smoking, alcohol, or substance abuse. CURRENT MEDICATIONS: Reviewed. REVIEW OF SYSTEMS: She notes stopping her Protonix approximately two weeks ago. Otherwise, all systems are negative other than noted above. PHYSICAL EXAMINATION: VITAL SIGNS: Blood pressure 120/60, pulse 113, respiratory rate 22, and afebrile. HEENT: Temporal wasting. Pale conjunctivae. Oropharynx is clear. NECK: Supple. LUNGS: Clear. CARDIAC: Regular rhythm and rate. Normal S1 and S2 with no murmur. ABDOMEN: Soft and slightly distended, but nontender. Nephrostomy sites are clean and dry. EXTREMITIES: There is no edema. NEUROLOGIC: Nonfocal. LABORATORY DATA: White count 13.3 and hemoglobin 5.8. Chemistry panel within normal limits. INR 1. IMPRESSION: 1. Severe symptomatic anemia due to gastrointestinal and vaginal blood loss. 2. Metastatic uterine carcinoma. 3. History of hypertension. PLAN: 1. Nasal oxygen. 2. Bedrest. 3. Packed red blood cell transfusions. 4. Resume Protonix. 5. Observe for further bleeding. 6. DVT prophylaxis with SCDs. Gigi Lamar M.D. : LUZ ELENA JOB#: [id number] CC:
[2019-11-10] MEDS ORDERED: Pantoprazole Inj IVP SCH ×2 (04:00→09:00)
[2019-11-10] MEDS: D5NS 1,000 ML IV SCH (07:02)
[2019-11-10 07:23] LABS: HEMOGLOBIN 7.2 G/DL (12.0-16.0); MEAN CORPUSCULAR VOLUME 77 FL (80-99); PLATELET COUNT 309 K/UL (150-450); RED CELL DISTRIBUTION WIDTH 20.8 % (11.6-14.8); WHITE BLOOD COUNT 10.3 K/UL (4.8-10.8)
--- NOTE | 2019-11-10 07:25 | NUR ---
HAND-OFF: Report given to Yolanda RN, patient in stable condition, plan of care endorsed.
--- NOTE | 2019-11-10 07:30 | NUR ---
NURSE NOTES: Received pt from JOSE L KATZ. Pt is A&O x4. Pt is in RA, no SOB or acute respiratory distress noted. pt has intact calista cath is working well. pt is eating breakfast independently. pt has R and L nephrostomy is working well. HB 7.2, Dr MARKS visited pt and he is byrd, no new order to RN. all needs attended, bed is locked and is in the lowest position, call light within easy reach. will continue to monitor.
[2019-11-10 08:00] VITALS: BP 145/88
[2019-11-10 12:00] VITALS: BP 125/67
--- NOTE | 2019-11-10 15:02 | NUR ---
NURSE NOTES: blood transfusion started at 1250 when it was ready and finished 1500 without any reaction, V/S checked q15min, pt is stable. V/S stable, will continue to monitor.
--- NOTE | 2019-11-10 15:30 | Progress Note ---
DATE: 11/10/2019 INTERNAL MEDICINE PROGRESS NOTE SUBJECTIVE: The patient feels better. Still with some bleeding from her vaginal area and GI tract. Her hemoglobin is 7.2, following 2 units of packed cells. The patient has no shortness of breath. The patient is anxious to resume her radiation therapy tomorrow at [facility] [place] and resume care with her oncologic team. OBJECTIVE: VITAL SIGNS: Blood pressure 141/74, pulse 86, respirations 18, afebrile. LUNGS: Clear. CARDIAC: Regular. ABDOMEN: No focal tenderness. EXTREMITIES: Without edema. IMPRESSION: 1. Metastatic sarcoma with associated bleeding from the and GI tract. 2. Anemia. PLAN: 1. Additional packed red blood cell transfusion. Then, we will discharge the patient to resume care of her primary oncologic team. 2. Continue proton-pump inhibitor and pain control meds as needed. Gigi Lamar M.D. DR: LIZZY JOB#: [id number] CC:
[2019-11-10 16:00] VITALS: BP 119/58
--- NOTE | 2019-11-10 16:07 | NUR ---
CASE MANAGEMENT:REVIEW 59 YR OLD FEMALE WALKED IN TO ER USING WALKER PMH: UTERINE CANCER. BILATERAL NEPHROSTOMY TUBES CC: UTERINE BLEEDING SI: ANEMIA 98.2 113 22 120/67 98% ON RA WBC+13.3 H/H-5.8/19.4 IS: IVF@75/hr TRANSFUSE 3 UNITS PRBC'S : TO TELEMETRY UNIT DCP: RETURN HOME AFTER TRANSFUSIONS
[2019-11-10] MEDS ORDERED: PROTONIX40 MG ORAL (16:30)
[2019-11-10] MEDS ORDERED: NORCO 5-325 TA1 EACH ORAL (16:30)
[2019-11-10 18:17] LABS: BASOPHILS % (AUTO) 1.1 % (0.0-2.0); EOSINOPHILS % (AUTO) 2.8 % (0.0-3.0); HEMATOCRIT 27.2 % (37.0-47.0); HEMOGLOBIN 8.5 G/DL (12.0-16.0); LYMPHOCYTES % (AUTO) 17.4 % (20.0-45.0); MEAN CORPUSCULAR VOLUME 78 FL (80-99); NEUTROPHILS % (AUTO) 70.8 % (45.0-75.0); PLATELET COUNT 329 K/UL (150-450); RED BLOOD COUNT 3.47 M/UL (4.20-5.40); RED CELL DISTRIBUTION WIDTH 16.8 % (11.6-14.8); WHITE BLOOD COUNT 11.8 K/UL (4.8-10.8)
--- NOTE | 2019-11-10 18:37 | NUR ---
NURSE NOTES: pt has discharge order, all D/C assessments and instructions done and pt verbally confirmed to understand all. pt is stable, V/S stable, CBC result sent to Dr KOCH, no new order to RN. Kwesi cath is D/C by SARA RAMOS. Pt has prescription and asked to take it to her own pharmacy. pt asked for HH, Dr KOCH notified and he answered pt has appointment with her Dr in [facility] tomorrow and she ask him tomorrow, pt is aware. al belongings are checked with RN and are with pt and she signed belongings list. pt has L and R nephrostomy is working well. waiting for sister to pick pt up. will continue to monitor.
[2019-11-10] MEDS ORDERED: NS 275ml ONE (18:49)
[2019-11-10] MEDS ORDERED: Tubing Blood Filter IV ONE (18:49)
--- NOTE | 2019-11-10 18:55 | NUR ---
NURSE NOTES: pt left6 hospital with accompany of her daughter.
[2019-11-10] MEDS ORDERED: Dyna-Hex 2% Top Sol 2oz TOPIC SCH (20:00)
--- NOTE | 2019-11-12 12:26 | Discharge Summary ---
Discharge Summary Discharge Summary _ DATE OF ADMISSION: 11/09/2019 DATE OF DISCHARGE: 11/10/2019 DISCHARGED BY: Dr. Lamar REASON FOR ADMISSION: 59 years old female with history of metastatic uterine cancer, anemia, status post hysterectomy, history of renal failure , status post nephrostomy tubes, hypertension, asthma, presented with bleeding from vagina and stool. Patient gets transfusion every 3 to 4 weeks. Patient currently undergoing cancer therapy at [facility]. Patient was scheduled for radiation therapy next week. Patient denied abdominal pain . Patient denied chest pain or shortness of breath. Patient reported severe fatigue and decreased exercise capacity, consistent with prior episodes of anemia. Last blood transfusion was 3 weeks ago when hemoglobin dropped to 6.4. Upon evaluation in emergency department patient was tachycardic , tachypneic, pulse oximetry was stable on room air. Laboratory work-up revealed mild leukocytosis WBC 13.3, hemoglobin 5.8, hematocrit 19.4, platelet count 369. Stable electrolytes and renal parameters. Stable LFT. Patient admitted for blood transfusion HOSPITAL COURSE: Patient admitted to telemetry floor. Patient started on IV fluids. Patient typed, crossed and started on blood transfusion. Supplemental oxygen provided and titrated to keep oximetry above 92%. GI prophylaxis provided. DVT prophylaxis with SCD provided. Patient was closely observed for further bleeding. Patient undergone transfusion of total of 3 units of packed red blood cells. Prior to discharge hemoglobin 8.5 , hematocrit 27.2. Leukocytosis trending down 11.8 , no fevers , probably cancer related. Supportive care provided. Blood pressure was closely monitored and remained stable without any antihypertensive medications. Pain management was addressed as needed. Patient clinically stabilized and was ready for discharge home. Due to rapid and expected improvement in patient condition , patient was discharged in 1 day. FINAL DIAGNOSES: Severe symptomatic anemia due to gastrointestinal and vaginal blood loss Metastatic uterine carcinoma History of hypertension DISCHARGE MEDICATIONS: See Medication Reconciliation list. DISCHARGE INSTRUCTIONS: Patient was discharged home. Follow-up with a primary care provider in 1 week. I have been assigned to dictate discharge summary for this account. I was not involved in the patient's management. Dina Alejo NP Nov 12, 2019 12:26
== END 2019-11-10 18:50 | disposition home or self-care (01) | DRG 812 ==
LOC: EMR 11:55 → EDBEDREQ 13:42 → 2E 13:47
PROC: 30233N1 Transfusion of Nonautologous Red Blood Cells into Peripheral Vein, Percutaneous Approach (ICD-10-PCS; principal; 2019-11-09)
DX: D62 Acute posthemorrhagic anemia (principal); C79.82 Secondary malignant neoplasm of genital organs; Z85.42 Personal history of malignant neoplasm of other parts of uterus; Z88.1 Allergy status to other antibiotic agents; Z88.8 Allergy status to other drugs, medicaments and biological substances; Z90.710 Acquired absence of both cervix and uterus; Z79.899 Other long term (current) drug therapy; N93.8 Other specified abnormal uterine and vaginal bleeding
CPT/HCPCS: 36415; 36430; 80053; 85007; 85025; 85610; 85730; 86850; 86900; 86901; 86920; 93005; 99285

== ENCOUNTER 2019-12-07 06:33 | Emergency (ER) | payer MEDICAID ==
[~2019-12-07] VITALS: Ht 172.7 cm; Wt 78.5 kg
[~2019-12-07 06:33] MED LIST changes: +NORCO 5-325 TA1 EACH ORAL; +PROTONIX40 MG ORAL
--- NOTE | 2019-12-07 06:53 | Emergency Room Report ---
History of Present Illness General Chief Complaint: Wound Recheck/Suture Removal Source: Patient Present Illness HPI Patient is 59-year-old female history of renal failure status post nephrostomy tubes, metastatic uterine sarcoma undergoing treatment at [facility] who presents for dressing change. Patient has had bilateral nephrostomy tubes for approximately 1 year. Denies any recent trauma. Requesting a dressing change. Otherwise denies any abdominal pain, flank pain, fevers, chills, nausea , vomiting diarrhea or other changes in her health. Denies any change in tube function. Allergies: Coded Allergies: AMOXICILLIN (Verified Allergy, Unknown, 06/13/19) CLAVULANIC ACID (Verified Allergy, Unknown, 06/13/19) LEVOFLOXACIN (Verified Allergy, Unknown, 05/01/17) Patient History Past Medical History: see triage record Reviewed Nursing Documentation: PMH: Agreed; PSxH: Agreed Nursing Documentation-PMH Past Medical History: No History, Except For Hx Cardiac Problems: Yes - HTN Hx Hypertension: Yes Hx Asthma: Yes Hx Cancer: Yes - uterine CA, hysterectomy Hx Gastrointestinal Problems: No Hx Neurological Problems: No Review of Systems All Other Systems: negative except mentioned in HPI Physical Exam Vital Signs Date Time Temp Pulse Resp B/P (MAP) Pulse Ox O2 Delivery O2 Flow Rate FiO2 12/07/19 06:47 97.9 85 14 148/76 (100) 99 Room Air Sp02 EP Interpretation: reviewed, normal General Appearance: normal inspection, well appearing, no apparent distress, alert, GCS 15, Chronically Ill Head: atraumatic ENT: normal ENT inspection, hearing grossly normal, normal voice Neck: normal inspection, full range of motion, supple, no bony tend Respiratory: normal inspection, lungs clear, normal breath sounds, no respiratory distress, no retraction, no wheezing Cardiovascular #1: regular rate, rhythm, no edema Gastrointestinal: normal inspection, normal bowel sounds, non tender, soft, no guarding, no hernia, other - Nephrostomy stoma sites is clean dry and intact. Musculoskeletal: normal inspection, back normal, normal range of motion, other - Ostomy site clean dry and intact Neurologic: alert, motor strength/tone normal, interceptor operator III-XII nml as tested, oriented x3, responsive, speech normal, normal inspection Psychiatric: normal inspection, judgement/insight normal, mood/affect normal Medical Decision Making Diagnostic Impression: Primary Impression: Encounter for wound re-check ER Course Presented for wound check. Differential diagnosis include was not limited to infection, healing wound, among others. Patient has chronic indwelling nephrostomy tubes. It appeared to be any leakage or drainage from the skin. The patient is advised to follow up with primary care doctor. Patient is advised to return if any worsening condition or if any changes in status that are concerning. This report is dictated with [employer] senior capital markets specialist software which may occasionally lead to discrepancies related to use of this software. Last Vital Signs Date Time Temp Pulse Resp B/P (MAP) Pulse Ox O2 Delivery O2 Flow Rate FiO2 12/07/19 06:47 97.9 85 14 148/76 (100) 99 Room Air Status: improved Disposition: HOME, SELF-CARE Condition: Stable Deni Cruz MD Dec 07, 2019 06:53
[2019-12-07 07:08] VITALS: BP 139/70
--- NOTE | 2019-12-07 07:09 | NUR ---
ED Nurse Note: RECEIVED REPORT FROM MICHEAL WEBB RN, PT WALKED IN FOR NEPHROSTOMY SURGICAL DRESSING CHANGE. NO SIGNS OF INFECTION ON THE SITES. NO REDNESS OR FOUL SMELL. AAO X4 AND AMBULATORY.
[2019-12-07 07:18] VITALS: BP 132/76
--- NOTE | 2019-12-07 07:18 | NUR ---
ER DISCHARGE NOTE: Patient is cleared to be discharged per ERMD, pt is aox4, on room air, with stable vital signs. pt was given dc instructions, pt was able to verbalize understanding, pt id band removed . pt is able to ambulate with steady gait. pt took all belongings.
== END 2019-12-07 07:18 | disposition home or self-care (01) ==
LOC: EMR 06:55
DX: Z09 Encounter for follow-up examination after completed treatment for conditions other than malignant neoplasm (principal); I10 Essential (primary) hypertension; J45.909 Unspecified asthma, uncomplicated; Z85.42 Personal history of malignant neoplasm of other parts of uterus; Z90.710 Acquired absence of both cervix and uterus; Z88.1 Allergy status to other antibiotic agents; Z88.8 Allergy status to other drugs, medicaments and biological substances; Z93.6 Other artificial openings of urinary tract status; Z87.448 Personal history of other diseases of urinary system
CPT/HCPCS: 99281

== ENCOUNTER 2019-12-14 06:12 | Emergency (ER) | payer MEDICAID ==
[~2019-12-14] VITALS: Ht 172.7 cm; Wt 77.1 kg
--- NOTE | 2019-12-14 06:28 | NUR ---
ED Nurse Note: Walk-in aptient with complaints of possible infection of nephrostomy tube sites. Patient is also requesting a dressing change. Will continue to monitor for impending orders.
--- NOTE | 2019-12-14 06:55 | Emergency Room Report ---
History of Present Illness General Chief Complaint: General Complaint Source: Patient Present Illness HPI 59-year-old female history of nephrostomy tubes, comes in for dressing change no fevers no chills, she endorses some itching of the right nephrostomy site, no pus discharge, no known aggravating relieving factors severity is mild, constant has been ongoing for a few days Allergies: Coded Allergies: AMOXICILLIN (Verified Allergy, Unknown, 06/13/19) CLAVULANIC ACID (Verified Allergy, Unknown, 06/13/19) LEVOFLOXACIN (Verified Allergy, Unknown, 05/01/17) Patient History Past Medical History: see triage record Reviewed Nursing Documentation: PMH: Agreed; PSxH: Agreed Nursing Documentation-PMH Past Medical History: No History, Except For Hx Cardiac Problems: Yes - HTN Hx Hypertension: Yes Hx Asthma: Yes Hx Cancer: Yes - uterine CA, hysterectomy Hx Gastrointestinal Problems: No Hx Neurological Problems: No Review of Systems All Other Systems: negative except mentioned in HPI Physical Exam Vital Signs Date Time Temp Pulse Resp B/P (MAP) Pulse Ox O2 Delivery O2 Flow Rate FiO2 12/14/19 06:19 98.1 88 16 132/70 (90) 96 Room Air General Appearance: well appearing, no apparent distress Head: normocephalic, atraumatic ENT: hearing grossly normal, normal voice Neck: full range of motion, supple Respiratory: no respiratory distress, speaking full sentences Neurologic: alert, normal gait Psychiatric: mood/affect normal Skin: no rash, other - Bilateral flank, nephrostomy tubes in place, clean dry intact, no pus no drainage Medical Decision Making Diagnostic Impression: Primary Impression: Encounter for wound re-check ER Course 59-year-old female presents for bilateral nephrostomy tube evaluation. No evidence of infection Disposition home with return precautions Last Vital Signs Date Time Temp Pulse Resp B/P (MAP) Pulse Ox O2 Delivery O2 Flow Rate FiO2 12/14/19 06:19 98.1 88 16 132/70 (90) 96 Room Air Disposition: HOME, SELF-CARE Condition: Stable Referrals: NON PHYSICIAN (PCP) [facility] [facility] Patient Instructions: Percutaneous Nephrostomy Home Guide, Percutaneous Nephrostomy, Care After, Wound Check Additional Instructions: The patient was provided with discharge instructions, notified to follow-up with a primary care doctor and or specialist in the next 24-48 hours, and to return to the ED if they have worsening of their symptoms. Please note that this report is being documented using [employer] technology. This can lead to erroneous entry secondary to incorrect interpretation by the dictating instrument. Cyrus Bustillo MD Dec 14, 2019 06:55
--- NOTE | 2019-12-14 07:19 | NUR ---
ER DISCHARGE NOTE: Patient is cleared to be discharged per ERMD. Patient tolerated sterile dressing change without complication. pt is aox4, on room air, with stable vital signs. pt was given dc and prescription instructions, pt was able to verbalize understanding, pt id band removed without complications. pt is able to ambulate with steady gait. pt took all belongings.
[2019-12-14 07:21] VITALS: BP 132/70
== END 2019-12-14 07:22 | disposition home or self-care (01) ==
LOC: EMR 06:30
DX: Z43.6 Encounter for attention to other artificial openings of urinary tract (principal); I10 Essential (primary) hypertension; J45.909 Unspecified asthma, uncomplicated; Z85.42 Personal history of malignant neoplasm of other parts of uterus; Z90.710 Acquired absence of both cervix and uterus; Z86.79 Personal history of other diseases of the circulatory system; Z88.1 Allergy status to other antibiotic agents
CPT/HCPCS: 99281

== ENCOUNTER 2019-12-19 07:21 | Emergency (ER) | payer MEDICAID ==
[~2019-12-19] VITALS: Ht 172.7 cm; Wt 68.0 kg
--- NOTE | 2019-12-19 07:48 | NUR ---
ED Nurse Note: Pt ambulated to ED d/t dressing change for bilateral nephrostomy tubes. Pt's VSS, on RA, NAD; denied pain; discomfort. Per triage, last dressing change was 12/12/2019. Placed on bed and gown.
--- NOTE | 2019-12-19 08:00 | Emergency Room Report ---
History of Present Illness General Chief Complaint: Wound Recheck/Suture Removal Present Illness HPI Patient presents for request of changing the dressing for her nephrostomy tubes Patient reports that she has been unable to have home health nursing Given the location of the dressings and the tube sites it is very difficult for her to change these herself Denies any fevers chills denies any chest pain the Nephrostomy bags have been feeling appropriately and showed good flow denies any blood in the area Allergies: Coded Allergies: AMOXICILLIN (Verified Allergy, Unknown, 06/13/19) CLAVULANIC ACID (Verified Allergy, Unknown, 06/13/19) LEVOFLOXACIN (Verified Allergy, Unknown, 05/01/17) Patient History Past Medical History: see triage record Reviewed Nursing Documentation: PMH: Agreed; PSxH: Agreed Nursing Documentation-PMH Hx Cardiac Problems: Yes - HTN Hx Hypertension: Yes Hx Asthma: Yes Hx Cancer: Yes - uterine CA, hysterectomy Hx Gastrointestinal Problems: No Hx Neurological Problems: No Review of Systems All Other Systems: negative except mentioned in HPI Physical Exam Vital Signs Date Time Temp Pulse Resp B/P (MAP) Pulse Ox O2 Delivery O2 Flow Rate FiO2 12/19/19 07:46 97.9 97 16 130/70 (90) 97 Room Air Sp02 EP Interpretation: reviewed, normal General Appearance: well appearing, no apparent distress Head: normocephalic, atraumatic Eyes: bilateral eye PERRL, bilateral eye EOMI ENT: hearing grossly normal, EOM grossly intact Neck: supple Respiratory: lungs clear, no respiratory distress, no retraction Genitourinary: no CVA tenderness - Nephrostomy tubes in place dressing is removed and area appears to be in appropriate healing process no obvious erythema no fluctuance Musculoskeletal: normal inspection, back normal Neurologic: alert Psychiatric: normal inspection Skin: no rash Lymphatic: normal inspection Medical Decision Making Diagnostic Impression: Primary Impression: Encounter for wound re-check Additional Impression: Encounter for dressing change or suture removal ER Course Patient is laid on the gurney on abdomen side the nephrostomy tubes are evaluated and appear to be appropriate without any signs of secondary infection Dressings are changed Patient discusses close follow-up with her specialist she is attempting outpatient home health nurse as well And will return with any changes or concerns Last Vital Signs Date Time Temp Pulse Resp B/P (MAP) Pulse Ox O2 Delivery O2 Flow Rate FiO2 12/19/19 07:46 97.9 97 16 130/70 90 97 Room Air Status: improved Disposition: HOME, SELF-CARE Condition: Improved Additional Instructions: Patient is provided with the discharge instructions notified to follow up with primary doctor in the next 2-3 days otherwise return to the er with any worsening symptoms. Please note that this report is being documented using [employer] technology. This can lead to erroneous entry secondary to incorrect interpretation by the dictating instrument. Alber Rodriguez DO Dec 19, 2019 08:00
[2019-12-19 08:01] VITALS: BP 130/70
[2019-12-19] MEDS ORDERED: Bacitracin Oint UD TOPIC ONE ×2 (08:45)
[2019-12-19 09:12] VITALS: BP 128/72
--- NOTE | 2019-12-19 09:12 | NUR ---
ER DISCHARGE NOTE: Patient is cleared to be discharged per ERMD, pt is aox4, on room air, with stable vital signs. pt was given dc and prescription instructions, pt was able to verbalize understanding, pt id bandremoved. pt is able to ambulate with steady gait. pt took all belongings.
[2019-12-19] MEDS ORDERED: BACITRACIN1 EAC1 TP (09:34)
== END 2019-12-19 09:12 | disposition home or self-care (01) ==
LOC: EMR 09:00
DX: Z48.01 Encounter for change or removal of surgical wound dressing (principal); I10 Essential (primary) hypertension; Z90.710 Acquired absence of both cervix and uterus; Z85.42 Personal history of malignant neoplasm of other parts of uterus; Z88.0 Allergy status to penicillin; Z88.8 Allergy status to other drugs, medicaments and biological substances
CPT/HCPCS: 99281

== ENCOUNTER 2020-01-03 13:26 | Emergency (ER) | payer MEDICAID ==
[~2020-01-03] VITALS: Ht 172.7 cm; Wt 72.6 kg
[~2020-01-03 13:26] MED LIST changes: +BACITRACIN1 EAC1 TP
--- NOTE | 2020-01-03 14:27 | Emergency Room Report ---
History of Present Illness General Chief Complaint: Wound Recheck/Suture Removal Source: Medical Record (Violet Poe) Present Illness HPI 59 YO female presents to the ED requesting dressing change to bilateral nephrostomy tubes. Pt. currently does not have a concrete home health care facilitated. She denies pain. Hx of uterine cx. bilateral nephrostomy tubes. Pt. denies fevers, chills, abdominal pain, JOY, body aches, or dark cloudy urine. Pt. reports last dressing change was last week. She denies tenderness at the sites. She is reports she sees a nephrology team at [facility]. She denies back pain. She denies malfunction of the bilateral tubes or collection bags. She denies any symptoms at this time. (Violet Poe) Allergies: Coded Allergies: AMOXICILLIN (Verified Allergy, Unknown, 06/13/19) CLAVULANIC ACID (Verified Allergy, Unknown, 06/13/19) LEVOFLOXACIN (Verified Allergy, Unknown, 05/01/17) Patient History Past Medical History: see triage record, other - uterine cancer Past Surgical History: other - nephrostomy placement, malignant tumor removal. Pertinent Family History: none Now: No Immunizations: UTD Reviewed Nursing Documentation: PMH: Agreed; PSxH: Agreed (Violet Poe) Nursing Documentation-PMH Past Medical History: No History, Except For Hx Cardiac Problems: Yes - HTN Hx Hypertension: Yes Hx Asthma: Yes Hx Cancer: Yes - uterine CA, hysterectomy Hx Gastrointestinal Problems: No Hx Neurological Problems: No (Violet Poe) Review of Systems All Other Systems: negative except mentioned in HPI (Violet Poe) Physical Exam Vital Signs Date Time Temp Pulse Resp B/P (MAP) Pulse Ox O2 Delivery O2 Flow Rate FiO2 01/03/20 13:37 98.2 105 18 150/78 (102) 97 Room Air Sp02 EP Interpretation: reviewed, normal General Appearance: no apparent distress, alert, GCS 15, non-toxic Head: normocephalic, atraumatic Eyes: bilateral eye normal inspection, bilateral eye PERRL ENT: hearing grossly normal, normal voice Neck: full range of motion Respiratory: lungs clear, normal breath sounds, speaking full sentences Cardiovascular #1: regular rate, rhythm Gastrointestinal: non tender, soft Genitourinary: normal inspection, no CVA tenderness, other - no CVA tenderness - Nephrostomy tubes in place dressing is removed. The left side is WNL no evidence of infeciton, healing appropriately. There is scant amt. of green/ yellow purulent d/c at the opening of the right nephrostomy tube insertion. no obvious erythema no fluctuance Musculoskeletal: normal range of motion, gait/station normal, non-tender Neurologic: alert, motor strength/tone normal, oriented x3, sensory intact, responsive, speech normal Psychiatric: judgement/insight normal, memory normal, other - Pt. excessively talkative and overly involved in her medical management and antibiotic choice. Skin: no rash, normal color, other - no CVA tenderness - Nephrostomy tubes in place dressing is removed. The left side is WNL no evidence of infeciton, healing appropriately. There is scant amt. of green/yellow purulent d/c at the opening of the right nephrostomy tube insertion. no obvious erythema no fluctuance Lymphatic: no adenopathy (Violet Poe) Medical Decision Making PA Attestation Dr. Winters is my supervising Physician whom patient management has been discussed with. (Violet Poe) Diagnostic Impression: Primary Impression: UTI (urinary tract infection) Qualified Codes: T83.512D - Infection and inflammatory reaction due to nephrostomy catheter, subsequent encounter; N39.0 - Urinary tract infection, site not specified Additional Impression: Encounter for dressing change or suture removal ER Course 59 YO female presents to the ED requesting dressing change to bilateral nephrostomy tubes. Pt. currently does not have a concrete home health care facilitated. She denies pain. Hx of uterine cx. bilateral nephrostomy tubes. Pt. denies fevers, chills, abdominal pain, JOY, body aches, or dark cloudy urine. Pt. reports last dressing change was last week. She denies tenderness at the sites. She is reports she sees a nephrology team at [facility]. She denies back pain. She denies malfunction of the bilateral tubes or collection bags. She denies any symptoms at this time. Ddx considered but are not limited to UTi , Pyelo, STI, Stone, Cystitis, colonization, surgical site infection, nephrostomy stoma infection Vital signs: are WNL, pt. is afebrile H&PE are most consistent with mild purulence with suspected soft tissue infection of the right nephrostomy tube site due to scan amount of greenish/ yellow d/c. the urine is clear and non cloudy, no warmth or surrounding erythema at the opening of the surgical site. ORDERS: - UA labs are attached : Both Collection bags yielded Nitrite positive urine samples. ED INTERVENTIONS: None required at this time. -- D/w pt. placement of abx. pt. is very adamant about being prescribed wither amoxicillin or azithromycin. DISCHARGE: At this time pt. is stable for d/c to home. Will provide printed patient care instructions, and any necessary prescriptions. Care plan and follow up instructions have been discussed with the patient prior to discharge. As rx's were being printed out pt. notified me that she can't wait any longer and that her sister will come pick everything up and she left the department before receiving d/c paperwork, rx's and full d/c by her attending nurse. Labs Test 01/03/20 15:15 Urine Color Yellow Urine Appearance Cloudy Urine pH 6 (4.5-8.0) Urine Specific [place] 1.015 (1.005-1.035) Urine Protein 3+ (NEGATIVE) Urine Glucose (UA) Negative (NEGATIVE) Urine Ketones 1+ (NEGATIVE) Urine Blood 3+ (NEGATIVE) Urine Nitrite Positive (NEGATIVE) Urine Bilirubin Negative (NEGATIVE) Urine Urobilinogen Normal MG/DL (0.0-1.0) Urine Leukocyte Esterase 3+ (NEGATIVE) Urine RBC 5-10 /HPF (0 - 2) Urine WBC 40-60 /HPF (0 - 2) Urine Squamous Epithelial Cells Occasional /LPF Urine Bacteria Many /HPF (NONE) (Violet Poe) ER Course Urine culture positive for Pseudomonas sensitive to Macrobid. Attempted to call patient with no response. Message left on phone. (Geoff Bragg M.D.) ER Course Patient was discharged with a prescription for azithromycin and Bactrim. Her urine culture grew out E. coli which is sensitive to. It also grew out Pseudomonas. Dr. Bragg called this patient earlier today. Patient called back and I discussed the case with her. She states she feels better. She has no symptoms. I told her I can call in a prescription for antibiotics but she refused. She says she wants to talk to Dr. Rodriguez regarding this visit. Pretty adamant about this. Told patient to call back on morning. Also will give Dr. Rodriguez her phone number. (Ger White MD) Last Vital Signs Date Time Temp Pulse Resp B/P (MAP) Pulse Ox O2 Delivery O2 Flow Rate FiO2 01/03/20 13:37 98.2 105 18 150/78 (102) 97 Room Air (Violet Poe) Disposition: HOME, SELF-CARE Condition: Stable Scripts Azithromycin* (ZITHROMAX*) 250 Mg Tablet 250 MG ORAL DAILY, #6 TAB 0 Refills Take two tables once daily for 1 day, then one tablet once daily for 4 days. Prov: Violet Poe 01/03/20 Trimethoprim/Sulfamethoxazole 160/800* (BACTRIM DS TABLET*) 1 Each Tablet 1 TAB ORAL TWICE A DAY for 7 Days, #14 TAB Prov: Violet Poe 01/03/20 Patient Instructions: Urinary Tract Infection, [id number], Wound Check Additional Instructions: Take medications as directed. Follow up with a Primary Care Provider in 3-5 days For a referral to have UROLOGIST Evaluation, even if your symptoms have resolved. THERE WAS SMALL AMT. OF PURULENT GREEN/YELLOW PUS at the RIGHT Incision site. Return sooner to ED if new symptoms occur, or current symptoms become worse. - Please note that this Emergency Department Report was dictated using [employer] technology software, occasionally this can lead to erroneous entry secondary to interpretation by the dictation equipment. Violet Poe Jan 03, 2020 14:27 Geoff Bragg M.D. Jan 08, 2020 14:41 Ger White MD Jan 10, 2020 01:31
[2020-01-03 14:29] VITALS: BP 150/78
--- NOTE | 2020-01-03 14:30 | NUR ---
ED Nurse Note: Patient walked in ER from home with FWW due to nephrostomy dressing change. per pt, she could not perform it at home by herself. no s/s of infection noted. the site clean and intact. pt dened pain. no cardiac or pulmonary distress noted at this time. pt aao x4 and ambulatory with FWW. skin clean and intact.
--- NOTE | 2020-01-03 14:48 | NUR ---
ED Nurse Note: pt refused to change to gown as stating "I can just lift this dress up when doctor comes."
--- NOTE | 2020-01-03 15:02 | NUR ---
ED Nurse Note: ERPA at bedside.
--- NOTE | 2020-01-03 15:40 | NUR ---
ED Nurse Note: dressing change done at bedside.
[2020-01-03 16:03] LABS: APPEARANCE,URINE CLOUDY; BILIRUBIN, URINE NEGATIVE (NEGATIVE); GLUCOSE, URINE (UA) NEGATIVE (NEGATIVE); KETONES,URINE NEGATIVE (NEGATIVE); LEUKOCYTE ESTERASE ,URINE 3+ (NEGATIVE); NITRITE,URINE POSITIVE (NEGATIVE); PH,URINE 6.5 (4.5-8.0); PROTEIN,URINE 3+ (NEGATIVE); UROBILINOGEN,URINE NORMAL MG/DL (0.0-1.0)
[2020-01-03 16:04] LABS: APPEARANCE,URINE CLOUDY; BILIRUBIN, URINE NEGATIVE (NEGATIVE); GLUCOSE, URINE (UA) NEGATIVE (NEGATIVE); KETONES,URINE 1+ (NEGATIVE); LEUKOCYTE ESTERASE ,URINE 3+ (NEGATIVE); NITRITE,URINE POSITIVE (NEGATIVE); PH,URINE 6 (4.5-8.0); PROTEIN,URINE 3+ (NEGATIVE); UROBILINOGEN,URINE NORMAL MG/DL (0.0-1.0)
[2020-01-03 16:08] LABS: COLOR,URINE YELLOW
[2020-01-03] MEDS ORDERED: BACTRIM DS TAB1 EAC1 ORAL (16:34)
[2020-01-03] MEDS ORDERED: ZITHROMAX250 MG ORAL (16:34)
--- NOTE | 2020-01-03 16:44 | NUR ---
Note michelle in EDM - 01/03/20 at 1701 by [email or web address] ED Nurse Note: Received discharge papers and prescriptions. pt not in the room or waiting room.
--- NOTE | 2020-01-03 17:01 | NUR ---
ED Nurse Note: Pt cleared by health care Provider for discharge. Patient had to run to her sister's car and did not sign on the discharge paper. DC instructions/prescription was given and explained to pt and verbalized understanding of teachings. All medical deviecs such as ID band removed. Pt is AAO x4, ambulatory with FWW and left with all personal belongings.
[2020-01-03 17:02] VITALS: BP 144/75
== END 2020-01-03 17:03 | disposition home or self-care (01) ==
LOC: EMR 14:30
DX: T83.512D Infection and inflammatory reaction due to nephrostomy catheter, subsequent encounter (principal); N39.0 Urinary tract infection, site not specified; Z88.0 Allergy status to penicillin; Z88.8 Allergy status to other drugs, medicaments and biological substances; I10 Essential (primary) hypertension; Z90.710 Acquired absence of both cervix and uterus; Z85.42 Personal history of malignant neoplasm of other parts of uterus; X58.XXXA Exposure to other specified factors, initial encounter; Y92.9 Unspecified place or not applicable
CPT/HCPCS: 81003; 87086; 87181; Z7502; 99283